=== PATIENT | female | born 1935 | race Caucasian/White ===

== ENCOUNTER → 2017-12-06 14:15 | Outpatient (CLI) | payer MEDICARE, SELFPAY ==
[2017-12-06 16:50] LABS: Absolute Lymphocyte Count 1.81 X10^3/ul (0.83-4.51); Absolute Neutrophil Count 4.3 X10^3/uL (2.0-7.7); Basophil# 0.04 X10^3/uL; Basophil% 0.5 % (0-1); Eosinophil# 0.21 X10^3/uL; Eosinophils% 2.9 % (0-5); Hematocrit 41.8 % (37-47); Hemoglobin 13.2 g/dl (12.0-15.0); Lymphocyte # 1.81 X10^3/ul (4.0); Lymphocyte % 24.8 % (19-41); Mean Corp Hgb Conc 31.6 g/gl (32-36); Mean Corpuscular Hgb 26.8 pg (27.0-32.0); Mean Platelet Vol. 9.9 fl (6.2-12.0); Monocyte# 0.96 X10^3/uL; Monocyte% 13.1 % (0-10); Neutrophil # 4.28 X10^3/uL (2.7-7.7); Neutrophil % 58.6 % (47-70); Platelet Count 317 K/mm3 (150-450); RBC Distribution Width SD 46.3 fl (35.1-43.9); Red Blood Count 4.92 M/mm3 (4.2-5.4); White Blood Count 7.3 K/mm3 (4.4-11.0)
[2017-12-06 16:52] LABS: POSITIVE COUNT NO; POSITIVE DIFFERENTIAL NO; POSITIVE MORPHOLOGY NO
[2017-12-06 17:44] LABS: Vitamin D,25 Hydroxy 30.3 ng/mL (19.95-100.01)
[2017-12-06 17:47] LABS: ALB/GLOB Ratio 0.9 RATIO (0.9-2.4); AST(SGOT) 23 U/L (15-37); Alanine Aminotransfer ALT/SGPT 33 U/L (13-56); Albumin, Serum 3.8 g/dL (3.2-5.0); Alkaline Phosphatase 101 U/L (45-117); Anion Gap 8 (5-15); BUN 21 mg/dL (7-18); BUN/Creat Ratio 21.9 RATIO (10-20); Calcium,Total 8.6 mg/dL (8.5-10.1); Chloride 99 mmol/L (98-107); Cholesterol 172 mg/dL (200); Creatinine, Serum 0.96 mg/dL (0.55-1.02); EST Glomerular Filtration Rate 59 mL/min (>60); Est Glom Filt Rate - Afr Amer 72 mL/min (>60); Globulin 4.2 g/dL (2.2-4.2); Glucose 81 mg/dL (70-110); High Density Lipoprotein 70 mg/dL; Potassium 4.1 mmol/L (3.5-5.1); Sodium Level 135 mmol/L (136-145); Thyroid Stim Hormone (TSH) 3.14 uIU/mL (0.358-3.74); Triglycerides 127 mg/dL; Very Low Density Lipoprotein 25 mg/dL (5-40)
== END ==
PROVIDERS: Family Provider Family Medicine Geriatric Medicine; PCP Family Medicine Geriatric Medicine; Visit Provider Family Medicine Geriatric Medicine
DX: E55.9 Vitamin D deficiency, unspecified (principal); E78.4 Other hyperlipidemia; I10 Essential (primary) hypertension
CPT/HCPCS: 36415; 80053; 80061; 82306; 84443; 85025

== ENCOUNTER → 2018-06-18 13:47 | Outpatient (CLI) | payer MEDICARE, SELFPAY ==
[2018-06-18 17:40] LABS: Absolute Lymphocyte Count 1.28 X10^3/ul (0.83-4.51); Absolute Neutrophil Count 4.6 X10^3/uL (2.0-7.7); Basophil# 0.03 X10^3/uL; Basophil% 0.4 % (0-1); Eosinophil# 0.11 X10^3/uL; Eosinophils% 1.6 % (0-5); Hematocrit 39.9 % (37-47); Hemoglobin 12.3 g/dl (12.0-15.0); Lymphocyte # 1.28 X10^3/ul (4.0); Lymphocyte % 18.7 % (19-41); Mean Corp Hgb Conc 30.8 g/gl (32-36); Mean Corpuscular Hgb 26.7 pg (27.0-32.0); Mean Corpuscular Volume 86.6 fL (81-99); Mean Platelet Vol. 10.5 fl (6.2-12.0); Monocyte% 11.7 % (0-10); Neutrophil # 4.61 X10^3/uL (2.7-7.7); Neutrophil % 67.5 % (47-70); Platelet Count 284 K/mm3 (150-450); RBC Distribution Width CV 15.1 % (11.6-14.6); RBC Distribution Width SD 47.9 fl (35.1-43.9); Red Blood Count 4.61 M/mm3 (4.2-5.4); White Blood Count 6.8 K/mm3 (4.4-11.0)
[2018-06-18 17:46] LABS: POSITIVE COUNT NO; POSITIVE DIFFERENTIAL NO; POSITIVE MORPHOLOGY NO
[2018-06-18 17:50] LABS: Vitamin D,25 Hydroxy 51.7 ng/mL (29.95-100.01)
[2018-06-18 18:01] LABS: ALB/GLOB Ratio 0.8 RATIO (0.9-2.4); AST(SGOT) 25 U/L (15-37); Alanine Aminotransfer ALT/SGPT 29 U/L (13-56); Albumin, Serum 3.6 g/dL (3.2-5.0); Alkaline Phosphatase 107 U/L (45-117); Anion Gap 6 (5-15); BUN 15 mg/dL (7-18); BUN/Creat Ratio 15.9 RATIO (10-20); Calcium,Total 8.8 mg/dL (8.5-10.1); Chloride 102 mmol/L (98-107); Cholesterol 165 mg/dL (200); Creatinine, Serum 0.94 mg/dL (0.55-1.02); EST Glomerular Filtration Rate 60 mL/min (>60); Est Glom Filt Rate - Afr Amer 73 mL/min (>60); Globulin 4.3 g/dL (2.2-4.2); Glucose 86 mg/dL (74-106); High Density Lipoprotein 57 mg/dL; Potassium 4.3 mmol/L (3.5-5.1); Protein, Total 7.9 g/dL (6.4-8.2); Sodium Level 137 mmol/L (136-145); Thyroid Stim Hormone (TSH) 2.39 uIU/mL (0.358-3.74); Triglycerides 139 mg/dL; Very Low Density Lipoprotein 28 mg/dL (5-40)
== END ==
PROVIDERS: Family Provider Family Medicine Geriatric Medicine; PCP Family Medicine Geriatric Medicine; Visit Provider Family Medicine Geriatric Medicine
DX: E55.9 Vitamin D deficiency, unspecified (principal); E78.4 Other hyperlipidemia; I10 Essential (primary) hypertension
CPT/HCPCS: 36415; 80053; 80061; 82306; 84443; 85025

== ENCOUNTER → 2018-11-02 09:45 | Outpatient (CLI) | payer MEDICARE, SELFPAY ==
[2018-05-14 14:02] VITALS: BMI 27.6
== END ==
PROVIDERS: Family Provider Family Medicine Geriatric Medicine; PCP Family Medicine Geriatric Medicine; Referring Provider Family Medicine Geriatric Medicine; Visit Provider Family Medicine Geriatric Medicine
DX: R50.9 Fever, unspecified (principal)
CPT/HCPCS: 87633

== ENCOUNTER → 2018-12-10 15:32 | Outpatient (CLI) | payer MEDICARE, SELFPAY ==
[2018-05-14 14:02] VITALS: BMI 27.6
[2018-12-10 16:19] LABS: ALB/GLOB Ratio 0.9 RATIO (0.9-2.4); AST(SGOT) 16 U/L (15-37); Alanine Aminotransfer ALT/SGPT 27 U/L (13-56); Albumin, Serum 3.3 g/dL (3.2-5.0); Alkaline Phosphatase 87 U/L (45-117); Anion Gap 9 (5-15); BUN 14 mg/dL (7-18); BUN/Creat Ratio 17.3 RATIO (10-20); Calcium,Total 8.7 mg/dL (8.5-10.1); Chloride 105 mmol/L (98-107); Cholesterol 148 mg/dL (200); Creatinine, Serum 0.81 mg/dL (0.55-1.02); EST Glomerular Filtration Rate 72 mL/min (>60); Est Glom Filt Rate - Afr Amer 87 mL/min (>60); Globulin 3.7 g/dL (2.2-4.2); Glucose 76 mg/dL (74-106); High Density Lipoprotein 62 mg/dL; Potassium 3.9 mmol/L (3.5-5.1); Sodium Level 141 mmol/L (136-145); Thyroid Stim Hormone (TSH) 1.65 uIU/mL (0.358-3.74); Triglycerides 84 mg/dL; Very Low Density Lipoprotein 17 mg/dL (5-40)
[2018-12-10 16:21] LABS: Vitamin D,25 Hydroxy 49.4 ng/mL (29.95-100.01)
[2018-12-10 16:33] LABS: Absolute Lymphocyte Count 0.83 X10^3/ul (0.83-4.51); Absolute Neutrophil Count 5.4 X10^3/uL (2.0-7.7); Basophil# 0.02 X10^3/uL; Basophil% 0.3 % (0-1); Eosinophil# 0.22 X10^3/uL; Hematocrit 40.6 % (37-47); Hemoglobin 12.5 g/dl (12.0-15.0); Lymphocyte # 0.83 X10^3/ul (4.0); Lymphocyte % 11.1 % (19-41); Mean Corp Hgb Conc 30.8 g/gl (32-36); Mean Corpuscular Hgb 26.5 pg (27.0-32.0); Mean Corpuscular Volume 86.2 fL (81-99); Mean Platelet Vol. 10.2 fl (6.2-12.0); Monocyte% 13.4 % (0-10); Neutrophil # 5.37 X10^3/uL (2.7-7.7); Neutrophil % 72.1 % (47-70); Platelet Count 245 K/mm3 (150-450); RBC Distribution Width CV 16.6 % (11.6-14.6); RBC Distribution Width SD 52.5 fl (35.1-43.9); Red Blood Count 4.71 M/mm3 (4.2-5.4); White Blood Count 7.5 K/mm3 (4.4-11.0)
[2018-12-10 16:34] LABS: POSITIVE COUNT NO; POSITIVE DIFFERENTIAL NO; POSITIVE MORPHOLOGY NO
== END ==
PROVIDERS: Family Provider Family Medicine Geriatric Medicine; PCP Family Medicine Geriatric Medicine; Visit Provider Family Medicine Geriatric Medicine
DX: E55.9 Vitamin D deficiency, unspecified (principal); E78.49 Other hyperlipidemia; I10 Essential (primary) hypertension
CPT/HCPCS: 36415; 80053; 80061; 82306; 84443; 85025

== ENCOUNTER → 2019-06-12 | Outpatient (CLI) | payer MEDICARE, SELFPAY ==
[2019-02-19 12:57] VITALS: BMI 24.8
[2019-06-12 17:14] LABS: Absolute Lymphocyte Count 1.06 X10^3/uL (0.83-4.51); Absolute Neutrophil Count 3.2 X10^3/uL (2.0-7.7); Basophil# 0.05 X10^3/uL; Eosinophil# 0.09 X10^3/uL; Eosinophils% 1.8 % (0-5); Hematocrit 37.7 % (37-47); Lymphocyte # 1.06 X10^3/ul (4.0); Lymphocyte % 21.3 % (19-41); Mean Corp Hgb Conc 31.8 g/dL (32-36); Mean Corpuscular Hgb 27.5 pg (27.0-32.0); Mean Corpuscular Volume 86.3 fL (81-99); Mean Platelet Vol. 10.9 fl (6.2-12.0); NRBC Flagged by Analyzer 0 % (0-5); Neutrophil # 3.17 X10^3/uL (2.7-7.7); Neutrophil % 63.7 % (47-70); Platelet Count 238 K/mm3 (150-450); RBC Distribution Width CV 15.4 % (11.6-14.6); RBC Distribution Width SD 48.1 fl (35.1-43.9); Red Blood Count 4.37 M/mm3 (4.2-5.4)
[2019-06-12 17:25] LABS: Vitamin D,25 Hydroxy 58.4 ng/mL (29.95-100.01)
[2019-06-12 17:29] LABS: AST(SGOT) 17 U/L (15-37); Alanine Aminotransfer ALT/SGPT 27 U/L (13-56); Albumin, Serum 3.4 g/dL (3.2-5.0); Alkaline Phosphatase 82 U/L (45-117); Anion Gap 9 (5-15); BUN 13 mg/dL (7-18); BUN/Creat Ratio 15.3 RATIO (10-20); Calcium,Total 8.3 mg/dL (8.5-10.1); Chloride 107 mmol/L (98-107); Cholesterol 150 mg/dL (200); Creatinine, Serum 0.85 mg/dL (0.55-1.02); EST Glomerular Filtration Rate 68 mL/min (>60); Est Glom Filt Rate - Afr Amer 82 mL/min (>60); Globulin 3.3 g/dL (2.2-4.2); Glucose 81 mg/dL (74-106); High Density Lipoprotein 68 mg/dL; Potassium 3.7 mmol/L (3.5-5.1); Protein, Total 6.7 g/dL (6.4-8.2); Sodium Level 141 mmol/L (136-145); Thyroid Stim Hormone (TSH) 1.93 uIU/mL (0.358-3.74); Triglycerides 72 mg/dL; Very Low Density Lipoprotein 14 mg/dL (5-40)
== END | disposition home or self-care (01) ==
PROVIDERS: Family Provider Family Medicine Geriatric Medicine; PCP Family Medicine Geriatric Medicine; Visit Provider Family Medicine Geriatric Medicine
DX: I10 Essential (primary) hypertension (principal); E55.9 Vitamin D deficiency, unspecified; E78.5 Hyperlipidemia, unspecified
CPT/HCPCS: 36415; 80053; 80061; 82306; 84443; 85025

== ENCOUNTER → 2019-09-10 12:40 | Outpatient (CLI) | payer MEDICARE, SELFPAY ==
[2019-08-20 13:04] VITALS: BMI 25.4
--- NOTE | 2019-09-10 12:42 | ECHOD_ITS ---
Reason For Study: Murmur Procedure This was a 2D Doppler, Color Flow transthoracic echocardiogram. Exam performed in department. Left Ventricle Normal LV size. Left ventricular systolic function is normal. The estimated ejection fraction is 65 %. Stage 2 diastolic dysfunction. No regional wall motion abnormalities noted. Right Ventricle Normal RV size. Normal systolic function. Atria Normal left atrium. Normal right atrium. Mitral Valve There is mild to moderate mitral annular calcification. Mild (1+) eccentric mitral valve insufficiency. Tricuspid Valve Normal tricuspid valve. Mild tricuspid valve insufficiency. Pulmonary artery systolic pressure is 30 mmHg. Aortic Valve Trisinus/trileaflet aortic valve. Mild focal aortic valve calcification. Pulmonic Valve Normal pulmonic valve. Mild (1+) pulmonic valve insufficiency. Great Vessels Normal aortic root. The pulmonary artery is normal size. Normal inferior vena cava. Pericardium/Pleural No pericardial effusion. MMode/2D Measurements & Calculations LVIDd: 3.7 cm IVSd: 1.5 cm LVOT diam: 2.0 cm LVIDs: 2.0 cm LVPWd: 0.93 cm LVOT area: 3.2 cm2 FS: 44.8 % Ao root diam: 3.4 cm LAV(MOD-bp): 52.2 ml LA A4 area: 20.4 cm2 LA dimension: 4.0 cm LAV(MOD-bp) Indexed: 32.2 ml/m2 LAV(MOD-sp2): 46.5 ml LAV(MOD-sp4): 59.5 ml RA A4 area: 18.0 cm2 Time Measurements MV dec time: 0.31 sec Doppler Measurements & Calculations MV E max dani: 140.2 cm/sec Lat Peak E' Dani: 4.7 cm/sec Med Peak E' Dani: 4.5 cm/sec MV A max dani: 92.2 cm/sec E/E' lat: 29.8 E/E' med: 31.0 MV E/A: 1.5 MV V2 max: 138.7 cm/sec MV P1/2t max dani: 138.7 cm/sec Ao V2 max: 188.3 cm/sec MV max P.7 mmHg MV P1/2t: 97.6 msec Ao max P.2 mmHg MV V2 mean: 67.1 cm/sec MV dec slope: 416.0 cm/sec2 Ao V2 mean: 117.7 cm/sec MV mean P.2 mmHg Ao mean P.5 mmHg MV V2 VTI: 47.7 cm MVA(P1/2t): 2.3 cm2 Ao V2 VTI: 41.3 cm MVA(VTI): 2.1 cm2 ANNIE(I,D): 2.5 cm2 ANNIE(V,D): 2.0 cm2 LV V1 max: 116.9 cm/sec MR max dani: 539.3 cm/sec SV(LVOT): 101.6 ml LV V1 max P.5 mmHg MR max P.3 mmHg LV V1 mean P.9 mmHg LV V1 mean: 76.9 cm/sec LV V1 VTI: 32.0 cm PA V2 max: 74.2 cm/sec PI end-d dani: 96.3 cm/sec TR max dani: 249.8 cm/sec TR max P.0 mmHg Interpretation Summary Normal LV size. Left ventricular systolic function is normal. The estimated ejection fraction is 65 %. Stage 2 diastolic dysfunction. There is mild to moderate mitral annular calcification. Mild focal aortic valve calcification. Ordering Physician: Heather Gunter Referring Physician: Brian Mckee Chi Performed By: Gianluca Goldberg RCS
== END ==
PROVIDERS: Family Provider Family Medicine Geriatric Medicine; PCP Family Medicine Geriatric Medicine; Referring Provider Physician Assistant Medical; Visit Provider Physician Assistant Medical
DX: R01.1 Cardiac murmur, unspecified (principal); Z98.890 Other specified postprocedural states; I08.3 Combined rheumatic disorders of mitral, aortic and tricuspid valves
CPT/HCPCS: 93306

== ENCOUNTER → 2019-10-24 16:00 | Outpatient (CLI) | payer MEDICARE, SELFPAY ==
[2019-08-20 13:04] VITALS: BMI 25.4
--- NOTE | 2019-10-24 16:06 | RAD_ITS ---
STUDY: X-RAY - LUMBAR SPINE REASON FOR EXAM: Female, 84 years old. Trauma TECHNIQUE: 3 view(s) of the lumbar spine were obtained. COMPARISON: None FINDINGS: Normal lumbar lordosis. There is no substantial scoliosis. There is a normal alignment of the vertebrae. There is diffuse demineralization with multi-level endplate spondylosis. Normal disc space heights. There is no demonstrated fracture. There are calcified plaques of the abdominal aorta. RAD/Lumbar Spine 2 or 3 Views IMPRESSION: Generalized osteopenia. Diffuse endplate spondylosis. Calcified plaques of the abdominal aorta. Electronically Signed: Jude Alvarez MD at 21:48 EST , Service support ,
--- NOTE | 2019-10-24 16:06 | RAD_ITS ---
STUDY: X-RAY - THORACIC SPINE REASON FOR EXAM: Female, 84 years old. Trauma TECHNIQUE: 3 view(s) of the thoracic spine were obtained. COMPARISON: None. FINDINGS: There is an increase in the normal thoracic kyphosis. There is no substantial scoliosis. There is demineralization of the thoracic spine with endplate spondylosis. Normal disc space heights. There are calcified plaques of the thoracic aorta. RAD/Thoracic Spine 2 Views IMPRESSION: Generalized osteopenia. Diffuse end plate spondylosis. Increased thoracic kyphosis. There is no evidence of fracture or subluxation. Disc spacing is preserved. Electronically Signed: Jude Alvarez MD at 21:46 EST , Service support ,
== END ==
PROVIDERS: Family Provider Family Medicine Geriatric Medicine; PCP Family Medicine Geriatric Medicine; Referring Provider Family Medicine Geriatric Medicine; Visit Provider Family Medicine Geriatric Medicine
DX: M54.9 Dorsalgia, unspecified (principal)
CPT/HCPCS: 72070; 72100

== ENCOUNTER → 2019-12-11 13:30 | Outpatient (CLI) | payer MEDICARE, SELFPAY ==
[2019-08-20 13:04] VITALS: BMI 25.4
--- NOTE | 2019-12-11 15:10 | RAD_ITS ---
STUDY: X-RAY CHEST REASON FOR EXAM: Female, 84 years old. CHEST PAIN; -- CABG TECHNIQUE: PA and lateral views of the chest. COMPARISON: None. FINDINGS: There is hyperinflation of the lungs consistent with chronic obstructive lung disease (COPD). Small calcific nodules are compatible with granulomata. There is no demonstrated pleural abnormality. Normal size heart. There are calcified mediastinal lymph nodes. Normal visualized pulmonary arteries. There is atherosclerotic calcification of the aortic arch with tortuosity. There is demineralization of the osseous structures. Normal visualized ribs, clavicles, and shoulders. There is no demonstrated abnormality of the visualized soft tissue structures of the upper abdomen. RAD/Chest PA and Lateral IMPRESSION: No airspace consolidation or pleural effusion. COPD. Electronically Signed: Abel Saldaña MD ([place]) at 12:13 EST , Service support ,
[2019-12-11 17:27] LABS: Absolute Lymphocyte Count 0.93 X10^3/uL (0.83-4.51); Absolute Neutrophil Count 6.3 X10^3/uL (2.0-7.7); Basophil# 0.04 X10^3/uL; Basophil% 0.5 % (0-1); Eosinophil# 0.15 X10^3/uL; Eosinophils% 1.8 % (0-5); Hematocrit 43.5 % (37-47); Hemoglobin 13.6 g/dL (12.0-15.0); Lymphocyte # 0.93 X10^3/ul (4.0); Lymphocyte % 11.2 % (19-41); Mean Corp Hgb Conc 31.3 g/dL (32-36); Mean Corpuscular Volume 89.7 fL (81-99); Monocyte# 0.85 X10^3/uL; Monocyte% 10.3 % (0-10); NRBC Flagged by Analyzer 0 % (0-5); Neutrophil # 6.28 X10^3/uL (2.7-7.7); Neutrophil % 75.8 % (47-70); Platelet Count 268 K/mm3 (150-450); RBC Distribution Width CV 15.2 % (11.6-14.6); RBC Distribution Width SD 50.2 fl (35.1-43.9); Red Blood Count 4.85 M/mm3 (4.2-5.4); White Blood Count 8.3 K/mm3 (4.4-11.0)
[2019-12-11 17:51] LABS: Vitamin D,25 Hydroxy 46.3 ng/mL (29.95-100.01)
[2019-12-11 18:05] LABS: ALB/GLOB Ratio 0.9 RATIO (0.9-2.4); AST(SGOT) 21 U/L (15-37); Alanine Aminotransfer ALT/SGPT 30 U/L (13-56); Albumin, Serum 3.5 g/dL (3.2-5.0); Alkaline Phosphatase 95 U/L (45-117); Anion Gap 5 (5-15); BUN 14 mg/dL (7-18); Calcium,Total 8.7 mg/dL (8.5-10.1); Chloride 103 mmol/L (98-107); Cholesterol 177 mg/dL (200); Creatinine, Serum 0.78 mg/dL (0.55-1.02); EST Glomerular Filtration Rate 75 mL/min (>60); Est Glom Filt Rate - Afr Amer 91 mL/min (>60); Glucose 86 mg/dL (74-106); High Density Lipoprotein 82 mg/dL; Potassium 3.9 mmol/L (3.5-5.1); Protein, Total 7.5 g/dL (6.4-8.2); Sodium Level 135 mmol/L (136-145); Thyroid Stim Hormone (TSH) 2.26 uIU/mL (0.358-3.74); Triglycerides 84 mg/dL; Very Low Density Lipoprotein 17 mg/dL (5-40)
== END ==
PROVIDERS: PCP Family Medicine Geriatric Medicine; Referring Provider Family Medicine Geriatric Medicine; Visit Provider Family Medicine Geriatric Medicine
DX: I10 Essential (primary) hypertension (principal); E78.5 Hyperlipidemia, unspecified; E55.9 Vitamin D deficiency, unspecified; R07.9 Chest pain, unspecified
CPT/HCPCS: 36415; 71046; 80053; 80061; 82306; 84443; 85025

== ENCOUNTER → 2020-06-10 13:31 | Outpatient (CLI) | payer MEDICARE, SELFPAY ==
[2019-08-20 13:04] VITALS: BMI 25.4
[2020-06-10 17:40] LABS: Absolute Lymphocyte Count 1.42 X10^3/uL (0.83-4.51); Absolute Neutrophil Count 4.9 X10^3/uL (2.0-7.7); Basophil# 0.05 X10^3/uL; Basophil% 0.7 % (0-1); Eosinophil# 0.14 X10^3/uL; Eosinophils% 1.9 % (0-5); Hematocrit 41.3 % (37-47); Hemoglobin 13.1 g/dL (12.0-15.0); Lymphocyte # 1.42 X10^3/ul (4.0); Lymphocyte % 19.5 % (19-41); Mean Corp Hgb Conc 31.7 g/dL (32-36); Mean Corpuscular Hgb 28.9 pg (27.0-32.0); Mean Platelet Vol. 10.9 fl (6.2-12.0); Monocyte# 0.81 X10^3/uL; Monocyte% 11.1 % (0-10); NRBC Flagged by Analyzer 0 % (0-5); Neutrophil # 4.86 X10^3/uL (2.7-7.7); Neutrophil % 66.5 % (47-70); Platelet Count 268 K/mm3 (150-450); RBC Distribution Width CV 14.4 % (11.6-14.6); RBC Distribution Width SD 47.8 fl (35.1-43.9); Red Blood Count 4.54 M/mm3 (4.2-5.4); White Blood Count 7.3 K/mm3 (4.4-11.0)
[2020-06-10 18:07] LABS: Vitamin D,25 Hydroxy 65.2 ng/mL
[2020-06-10 18:25] LABS: ALB/GLOB Ratio 1.1 RATIO (0.9-2.4); AST(SGOT) 24 U/L (15-37); Alanine Aminotransfer ALT/SGPT 31 U/L (13-56); Albumin, Serum 3.7 g/dL (3.2-5.0); Alkaline Phosphatase 83 U/L (45-117); Anion Gap 5 (5-15); BUN 19 mg/dL (7-18); BUN/Creat Ratio 21.1 RATIO (10-20); Calcium,Total 8.6 mg/dL (8.5-10.1); Chloride 108 mmol/L (98-107); Cholesterol 164 mg/dL (200); EST Glomerular Filtration Rate 63 mL/min (>60); Est Glom Filt Rate - Afr Amer 77 mL/min (>60); Globulin 3.3 g/dL (2.2-4.2); Glucose 86 mg/dL (74-106); High Density Lipoprotein 71 mg/dL; Potassium 3.7 mmol/L (3.5-5.1); Sodium Level 139 mmol/L (136-145); Thyroid Stim Hormone (TSH) 1.58 uIU/mL (0.358-3.74); Triglycerides 207 mg/dL; Very Low Density Lipoprotein 41 mg/dL (5-40)
== END ==
PROVIDERS: PCP Family Medicine Geriatric Medicine; Visit Provider Family Medicine Geriatric Medicine
DX: E55.9 Vitamin D deficiency, unspecified (principal); E78.5 Hyperlipidemia, unspecified; I10 Essential (primary) hypertension
CPT/HCPCS: 36415; 80053; 80061; 82306; 84443; 85025

== ENCOUNTER → 2020-07-20 13:37 | Outpatient (CLI) | payer MEDICARE, SELFPAY ==
[2019-08-20 13:04] VITALS: BMI 25.4
--- NOTE | 2020-07-20 13:41 | RAD_ITS ---
STUDY: X-RAY - ABDOMEN/PELVIS REASON FOR EXAM: Female, 85 years old. DIARRHEA X 5 DAYS, NAUSEA TECHNIQUE: AP supine and upright views of the abdomen and pelvis. COMPARISON: None. FINDINGS: Normal visualized lung bases. There is an unremarkable bowel gas pattern. There is no demonstrated free abdominal air. The visualized liver, spleen and kidneys are grossly normal in size and morphology. Normal soft tissue structures. Normal visualized osseous structures. RAD/Abd Inc Decub and/or Erect IMPRESSION: Normal x-ray examination of the abdomen and pelvis. Electronically Signed: Julius Crabtree MD at 14:04 EDT Tel , Service support ,
[2020-07-20 17:04] LABS: Absolute Lymphocyte Count 1.21 X10^3/uL (0.83-4.51); Absolute Neutrophil Count 5.2 X10^3/uL (2.0-7.7); Basophil# 0.03 X10^3/uL; Basophil% 0.4 % (0-1); Eosinophil# 0.09 X10^3/uL; Eosinophils% 1.2 % (0-5); Hematocrit 42.4 % (37-47); Hemoglobin 13.7 g/dL (12.0-15.0); Lymphocyte # 1.21 X10^3/ul (4.0); Lymphocyte % 15.9 % (19-41); Mean Corp Hgb Conc 32.3 g/dL (32-36); Mean Corpuscular Hgb 28.7 pg (27.0-32.0); Mean Corpuscular Volume 88.7 fL (81-99); Mean Platelet Vol. 10.6 fl (6.2-12.0); Monocyte# 1.03 X10^3/uL; Monocyte% 13.5 % (0-10); NRBC Flagged by Analyzer 0 % (0-5); Neutrophil # 5.24 X10^3/uL (2.7-7.7); Neutrophil % 68.6 % (47-70); Platelet Count 302 K/mm3 (150-450); RBC Distribution Width CV 13.8 % (11.6-14.6); RBC Distribution Width SD 44.5 fl (35.1-43.9); Red Blood Count 4.78 M/mm3 (4.2-5.4); White Blood Count 7.6 K/mm3 (4.4-11.0)
[2020-07-20 17:39] LABS: ALB/GLOB Ratio 0.9 RATIO (0.9-2.4); AST(SGOT) 22 U/L (15-37); Alanine Aminotransfer ALT/SGPT 30 U/L (13-56); Albumin, Serum 3.6 g/dL (3.2-5.0); Alkaline Phosphatase 90 U/L (45-117); Amylase 57 U/L (25-115); Anion Gap 7 (5-15); BUN 15 mg/dL (7-18); BUN/Creat Ratio 17.5 RATIO (10-20); Calcium,Total 9.2 mg/dL (8.5-10.1); Chloride 109 mmol/L (98-107); Creatinine, Serum 0.86 mg/dL (0.55-1.02); EST Glomerular Filtration Rate 67 mL/min (>60); Est Glom Filt Rate - Afr Amer 81 mL/min (>60); Globulin 3.9 g/dL (2.2-4.2); Glucose 94 mg/dL (74-106); Lipase 177 U/L (73-393); Potassium 3.3 mmol/L (3.5-5.1); Protein, Total 7.5 g/dL (6.4-8.2); Sodium Level 139 mmol/L (136-145)
== END ==
PROVIDERS: PCP Family Medicine Geriatric Medicine; Visit Provider Family Medicine Geriatric Medicine
DX: R19.7 Diarrhea, unspecified (principal); N39.0 Urinary tract infection, site not specified
CPT/HCPCS: 36415; 74018; 74019; 80053; 82150; 83690; 85025; 87086; 87088; 87186

== ENCOUNTER → 2020-07-21 14:32 | Outpatient (CLI) | payer MEDICARE, SELFPAY ==
[2019-08-20 13:04] VITALS: BMI 25.4
== END ==
LOC: POLAB3 14:33 → LABSPEC 14:33
PROVIDERS: PCP Family Medicine Geriatric Medicine; Visit Provider Family Medicine Geriatric Medicine
DX: R19.7 Diarrhea, unspecified (principal)
CPT/HCPCS: 82274; 83630; 87177; 87209; 87493; 87506

== ENCOUNTER → 2020-08-03 14:16 | Outpatient (CLI) | payer MEDICARE, SELFPAY ==
[2019-08-20 13:04] VITALS: BMI 25.4
[2020-08-03 17:54] LABS: Anion Gap 6 (5-15); BUN 16 mg/dL (7-18); BUN/Creat Ratio 20.9 RATIO (10-20); Calcium,Total 8.6 mg/dL (8.5-10.1); Chloride 105 mmol/L (98-107); Creatinine, Serum 0.77 mg/dL (0.55-1.02); EST Glomerular Filtration Rate 76 mL/min (>60); Est Glom Filt Rate - Afr Amer 92 mL/min (>60); Glucose 98 mg/dL (74-106); Sodium Level 139 mmol/L (136-145)
== END ==
LOC: POLAB3 14:17
PROVIDERS: PCP Family Medicine Geriatric Medicine; Visit Provider Family Medicine Geriatric Medicine
DX: E87.6 Hypokalemia (principal)
CPT/HCPCS: 36415; 80048

== ENCOUNTER → 2020-09-02 15:51 | Outpatient (CLI) | payer MEDICARE, SELFPAY ==
[2020-09-02 14:56] VITALS: BMI 26.2
--- NOTE | 2020-09-02 16:11 | RAD_ITS ---
HISTORY: CHEST PAIN. HX CORONARY ARTERY BYPASS SURGERY. ADDITIONAL HISTORY: None provided. COMPARISON: 12/11/2019 EXAMINATION/TECHNIQUE: XR Chest 2 Views Number of images including paperwork: 2 FINDINGS: LUNGS AND PLEURA: No consolidation, mass or pleural effusion. Hyperinflation. Mild fibrotic changes. CARDIAC SILHOUETTE: Stable. CABG changes. MEDIASTINUM AND NIRMAL: Aortic calcification. UPPER ABDOMEN: Unremarkable. SKELETON AND SOFT TISSUES: No acute findings. Thoracic kyphosis. Mineralization appears decreased. OTHER DEVICES AND HARDWARE: None. RAD/Chest PA and Lateral IMPRESSION: No acute cardiopulmonary abnormality. Hyperinflation compatible with COPD. at 0456 Reported and signed by: Josefina Mccormick MD Electronically Signed: Josefina Mccormick MD at 4:56 EDT Tel , Service support ,
[2020-09-02 17:18] LABS: Absolute Lymphocyte Count 1.67 X10^3/uL (0.83-4.51); Absolute Neutrophil Count 3.8 X10^3/uL (2.0-7.7); Basophil# 0.03 X10^3/uL; Basophil% 0.5 % (0-1); Eosinophil# 0.17 X10^3/uL; Eosinophils% 2.6 % (0-5); Hematocrit 42.5 % (37-47); Hemoglobin 13.6 g/dL (12.0-15.0); Lymphocyte # 1.67 X10^3/ul (4.0); Mean Corpuscular Volume 90.6 fL (81-99); Mean Platelet Vol. 10.1 fl (6.2-12.0); Monocyte# 0.71 X10^3/uL; Monocyte% 11.1 % (0-10); NRBC Flagged by Analyzer 0 % (0-5); Neutrophil # 3.83 X10^3/uL (2.7-7.7); Neutrophil % 59.6 % (47-70); Platelet Count 282 K/mm3 (150-450); RBC Distribution Width CV 13.5 % (11.6-14.6); RBC Distribution Width SD 44.7 fl (35.1-43.9); Red Blood Count 4.69 M/mm3 (4.2-5.4); White Blood Count 6.4 K/mm3 (4.4-11.0)
[2020-09-02 17:36] LABS: Anion Gap 6 (5-15); BUN 13 mg/dL (7-18); BUN/Creat Ratio 14.9 RATIO (10-20); Calcium,Total 8.6 mg/dL (8.5-10.1); Chloride 102 mmol/L (98-107); Creatinine, Serum 0.87 mg/dL (0.55-1.02); EST Glomerular Filtration Rate 66 mL/min (>60); Est Glom Filt Rate - Afr Amer 79 mL/min (>60); Glucose 91 mg/dL (74-106); Potassium 3.7 mmol/L (3.5-5.1); Sodium Level 137 mmol/L (136-145)
== END ==
PROVIDERS: PCP Family Medicine Geriatric Medicine; Referring Provider Internal Medicine Cardiovascular Disease; Visit Provider Internal Medicine Cardiovascular Disease
DX: R07.9 Chest pain, unspecified (principal); R06.00 Dyspnea, unspecified; Z95.1 Presence of aortocoronary bypass graft
CPT/HCPCS: 36415; 71046; 80048; 85025

== ENCOUNTER 2020-09-08 06:05 | Day surgery (SDC) | payer MEDICARE, SELFPAY ==
[2020-09-02 14:56] VITALS: BMI 26.2
[2020-09-07 13:35] VITALS: BMI 26.2
[2020-09-08] VITALS (16 sets, daily range): BP systolic 110–184; BP diastolic 52–92; PULSE 38–69; RESP 16–18; TEMP 36.2–37; O2SAT 96–100; BMI 25.8
--- NOTE | 2020-09-08 05:17 | HP_ITS ---
[facility] History of Present Illness Details: SHANNAN CONWAY, is a 85 F who presents to the office today for a cardiovascular follow-up. She has a history of coronary artery disease with bypass surgery in 1997. She also has a history of hypertension and hyperlipidemia. She had been doing well until recently when she started experiencing exertional chest discomfort described as a heaviness associated with shortness of breath and relieved with rest. She also has the pain bilaterally in her shoulder blades almost daily. This is not normal. She has been otherwise very active. She denies any dizziness or diaphoresis no near syncope or syncope she has been compliant with her medications. Her electrocardiogram done here today demonstrates normal sinus rhythm with a rate of 58 bpm and T wave inversions noted in lead V1 through V5. Intake Vital Signs 09/02/20 Height 5 ft 3 in 09/02/20 Weight: 148 lb 09/02/20 BMI 26.2 09/02/20 BP 145/81 H 09/02/20 Respiration 16 09/02/20 Pulse 62 09/02/20 Pulse Oximetry (%) 98 Intake Visit Reasons: 1 Y FU (we r/s from 08/18) Allergies lisinopril Allergy (Severe, Verified 08/20/19 13:04) unknown simvastatin Allergy (Severe, Verified 09/02/20 12:08) Swelling of mouth and throat Sulfa (Sulfonamide Antibiotics) Allergy (Severe, Verified 08/20/19 13:04) unknown Medications metoprolol succinate 50 mg tablet,extended release 24 hr 50 mg PO QDAY tab 11/13/17 [History Confirmed 09/02/20] nitroglycerin 0.4 mg sublingual tablet 0.4 mg SUBLINGUAL Q5-15M PRN 11/14/17 [History Confirmed 09/02/20] aspirin 81 mg chewable tablet 81 mg PO QDAY 05/14/18 [History Confirmed 09/02/20] atorvastatin 40 mg tablet 40 mg PO QDAY #90 tab 12/10/19 [Rx Confirmed 09/02/20] amlodipine 10 mg tablet 10 mg PO QDAY #60 tab 09/02/20 [Rx Confirmed 09/02/20] cholecalciferol (vitamin D3) 50 mcg (2,000 unit) capsule 1,000 unit PO QDAY cap 09/02/20 [History Confirmed 09/02/20] citalopram 10 mg tablet 20 mg PO QDAY tab 09/02/20 [History Confirmed 09/02/20] clobetasol 0.05 % topical cream 1 applic TOPICAL BID 09/02/20 [History Confirmed 09/02/20] clopidogrel 75 mg tablet 75 mg PO DAILY #30 tab 09/02/20 [Rx Confirmed 09/02/20] clopidogrel 75 mg tablet 75 mg PO DAILY #30 tab 09/02/20 [Rx Confirmed 09/02/20] omeprazole 40 mg capsule,delayed release mg PO 09/02/20 [History Confirmed 09/02/20] oxybutynin chloride 5 mg tablet 5 mg PO DAILY 09/02/20 [History Confirmed 09/02/20] potassium chloride 10 mEq tablet,extended release(part/cryst) 10 meq PO DAILY 09/02/20 [History Confirmed 09/02/20] Ejection fraction %: 65 to 70 PFSH Medical History Atherosclerotic heart disease of [place] coronary artery without angina pectoris (Chronic) Essential (primary) hypertension (Chronic) Hyperlipidemia (Chronic) Carotid artery stenosis (Chronic) Palpitations (Chronic) Blood in stool (Resolved) Diarrhea (Resolved) Atherosclerotic heart disease of [place] coronary artery with angina pectoris with documented spasm (Ruled-out) Surgical History H/O coronary artery bypass surgery (Resolved 1997) History of tonsillectomy (Chronic) History of cataract surgery (Resolved) History of hernia repair (Resolved) History of hysterectomy (Resolved) History of left heart catheterization (Resolved 1997) Family History Mother CAD (coronary artery disease) Hx of CABG Myocardial infarction Hypertension Diabetes Social History (Updated 09/02/20 @ 15:[address] Ivan Rowland MD) Smoking Status: Never smoker alcohol intake: never substance use type: does not use ROS Const Const: Negative for fatigue, weakness, headache(s), frequent falls, difficulty sleeping or excessive sweating Eyes Eyes: Negative for loss of peripheral vision, transient loss of vision, blurry vision, double vision or tunnel vision ENT ENT: Negative for headache(s), dizziness, Nosebleed/epistaxis or balance problems Cardio Chest Pain: Yes Frequency: daily Character: other (pressure) Onset: exercise Location: mid sternal Relieving: rest Palpitations: No Edema: None Muscle aches with walking: None Resp Respiratory: Negative for SOB with activity, SOB at rest, SOB orthopnea\SOB lying down, Cough or paroxysmal nocturnal dyspnea GI GI: Negative nausea, vomiting, heartburn or black,tarry stools : Negative for hematuria Musc Musc: Positive for joint pain (pain between shoulder blades); negative for muscle aches/ myalgia, muscle weakness or balance problems Skin Skin: Negative non-healing lesions, rash or unusual bruising Neuro Neuro: Negative for dizziness, lightheadedness, near syncope, syncope, orthostatic symptoms, frequent falls, headache(s), weakness, blurry vision, double vision or lack of coordination Johnnie Hematologic/Lymphatic: Negative for easy bleeding or easy bruising Endo Endo: Negative for fatigue, excessive sweating or increased thirst/drinking Psych Psych: Negative for anxiety or depression Allergy Allergy/Immunology: Negative for hives, Negative for rash Cardiology Exam Const Appearance: cooperative, healthy appearing, no acute distress, well developed and well groomed Nutritional Appearance: average body habitus and well nourished Orientation: alert, awake and oriented x3 Head Head: normal to inspection, normocephalic and atraumatic Ears: hearing grossly normal bilaterally and external ears normal Nose: external nose normal, nares normal, nasal mucous membranes and turbinates normal, septum normal, no nasal discharge Face and Sinus: face symmetric Mouth: oral mucosae normal, tongue normal, oropharynx normal and moist mucous membranes Teeth and gingiva: dentition normal Throat: posterior oropharynx normal, tonsils normal and uvula midline Eyes General: appearance normal, both eyes and all related structures Eyelids: eyelids normal Conjunctivae: conjunctivae normal Pupils: PERRL, normal by confrontation and accommodation normal EOM: EOM intact bilaterally Neck Neck: normal visual inspection, trachea midline and no JVD JVD: +5 Carotids: normal carotid upstroke and bounding pulses Chest Chest inspection: normal inspection of the chest, symmetric chest movement and normal respiratory effort Auscultation: Bilateral: Clear to Auscultation Cardio Palpation: normal PMI Rate: regular rate Rhythm: regular rhythm Heart sounds: S1 normal, S2 normal and normal, physiologic split S2; negative rub, gallop or murmur GI GI: normal to inspection, soft, no hepatosplenomegaly and bowel sounds present Neuro General: alert, awake, oriented x3, gait normal, moves all extremities and no focal sensory deficit Skin Skin: no rashes or lesions noted Extremities Pulses: Normal: Right Femoral Pulse, Left Femoral Pulse, Right Dorsalis Pedis Pulse, Left Dorsalis Pedis Pulse, Right Posterior Tibial Pulse, Left Posterior Tibial Pulse, Right Radial Pulse, Left Radial Pulse Lower Extremity Edema: None: Bilateral Musculoskel Musculoskeletal: No joint tenderness Psych Psychological: normal affect Assessment & Plan 1. Exertional chest pain R07.9 Plan She does have exertional chest discomfort. This suggests recent onset angina. Her bypass grafts as you know from 1997. The exact locations are not known at this time. With the typical characteristics of the above I would recommend that we pursue a cardiac catheterization. The risk benefits alternatives have been explained to her she understands and agrees to proceed. Orders Orders: 12 Lead EKG performed by [facility] Today Left Heart Cath w/Grafts 1 Week Basic Metabolic Profile (BMP) Today Chest PA and Lateral Today 2. H/O coronary artery bypass surgery Z95.1 Plan She is status post coronary artery bypass surgery. She appears to have developed angina and I would recommend that we evaluate the above further. Orders Orders: 12 Lead EKG performed by [facility] Today Left Heart Cath w/Grafts 1 Week Chest PA and Lateral Today 3. Essential (primary) hypertension I10 Plan She does have a history of hypertension which does not appear to be very well controlled I would recommend that we increase amlodipine to 10 mg a day in addition to her current medications. Her last echocardiogram had demonstrated preserved ejection fraction of 65%, aortic sclerosis, mitral regurgitation 1+. Orders Orders: 12 Lead EKG performed by [facility] Today Left Heart Cath w/Grafts 1 Week 4. Pure hypercholesterolemia E78.00 Plan She does have a history of hyperlipidemia. She will continue with her current medical therapy her most recent lipid profile demonstrated a total cholesterol 164, LDL of 52 and HDL of 71. She will remain on the same medications. Thank you for allowing me to participate in the care of your patient. Please don't hesitate to call if any issues arise. Plan Detail Other Orders Orders: 12 Lead EKG performed by [facility] Today E78.5, I25.10, R06.00 CBC W/Diff, Automated Today R06.00 Other Medications New: clopidogrel (Plavix) 75 mg PO DAILY 30 tabs 2RF clopidogrel (Plavix) 75 mg PO DAILY 30 tabs 0RF Changed: From: amlodipine 5 mg PO QDAY To: amlodipine 10 mg PO QDAY 60 tabs 3RF Follow Up 3 Months (mmm) Coding Level of Care Code Off vis,est,level 4 Diagnoses Exertional chest pain R07.9 H/O coronary artery bypass surgery Z95.1 Essential (primary) hypertension I10 Pure hypercholesterolemia E78.00 ??Hyperlipidemia type: pure hypercholesterolemia Coding Level of Care Code Off vis,est,level 4 Diagnoses Exertional chest pain R07.9 H/O coronary artery bypass surgery Z95.1 Essential (primary) hypertension I10 Pure hypercholesterolemia E78.00 ??Hyperlipidemia type: pure hypercholesterolemia Supplemental Info Supplemental Information Labs LDL Cholesterol 52 mg/dL (0-130) 06/10/20 HDL Cholesterol 71 mg/dL (40-) 06/10/20 Triglycerides 207 mg/dL (-199) H 06/10/20 VLDL Cholesterol 41 mg/dL (5-40) H 06/10/20 Diagnostics Echocardiogram 09/10/19 Chest X-Ray 12/11/19
--- NOTE | 2020-09-08 09:05 | CL.D_ITS ---
Patient Name: SHANNAN CONWAY Study Date: 09/08/2020 Performing: Ivan Rowland MD Ht: 62.99 inches 160 cm : 1935 Wt: 147.71 lbs 67 kg Age: 85 Gender: female BSA: 1.7 PROCEDURE(S) PERFORMED NT18-RCA/COR/CABG CLINICAL PROFILE AND INDICATIONS Indications: Suspected CAD Heart Failure: None Stress/Imaging Stress/Image Study Performed: No CAD Presentations: Unstable angina. CONCLUSIONS Significant coronary artery disease with the saphenous vein graft to the right coronary artery having areas in the proximal segment of approximately 60% in the midsegment of 90% stenosis and an old kyrie t. The distal vessel appears to be free of significant disease. RECOMMENDATIONS Referred for immediate PCI DESCRIPTION OF PROCEDURE The patient arrived to the procedure lab. The risks and benefits of the procedure as well as a full d escription of our services here and current unavailability of surgical backup were fully explained to the patient and/or their significant other prior to the catheterization. The Timeout was completed, verifying the correct patient and procedure. The patient's procedural site was prepped and draped in the usual fashion. Local anesthetic was given subcutaneously to right groin region with Lidocaine 2%. Using a modified Seldinger technique, arterial access was obtained via the right femoral artery, a 5 Fr sheath was inserted. Left Coronary Artery selective angiography was performed in multiple views u sing a 5 Fr. JL4 catheter. Right Coronary Artery selective angiography was then performed in multiple views using a 5 Fr. 3DRC (Antonio) catheter. Saphenous Vein graft to the OM 3 selective angiography was performed in multiple views using a 5 Fr. 3DRC (Antonio) catheter. Saphenous Vein graft to the RCA selective angiography was performed in multiple views using a 5 Fr. 3DRC (Antonio) catheter. Left internal mammary artery graft to the LAD selective angiography was performed in multip le views using a 5 Fr. IM catheter. Saphenous Vein graft to the RCA selective angiography was perform ed in multiple views using a 5 Fr. AR MOD catheter. Saphenous Vein graft to the OM 3 selective angiog paresh was performed in multiple views using a 5 Fr. AR MOD catheter. CORONARY ANGIOGRAPHY DOMINANCE: Right Dominant LEFT HEART ASSESSMENT Left Ventricular Ejection Fraction: by Echo 55 % Normal LV wall motion LEFT MAIN: Mild calcification, Mild luminal irregularities LEFT ANTERIOR DESCENDING ARTERY: PROX LAD: is occluded CIRCUMFLEX ARTERY: OM 1: Proximal - Mild luminal irregularities less than 30% OM 2: Proximal - Moderate luminal irregularities up to 50% OM 3: Mid - Mild luminal irregularities RIGHT CORONARY ARTERY: PROX RCA: is occluded GRAFTS: CHEEMA graft to the Mid LAD is patent Saphenous Vein graft to the 3rd OM is patent Saphenous Vein graft to the RPDA has a proximal lesion of 60 % Saphenous Vein graft to the RPDA has a mid lesion of 90 % COLLATERAL FLOW: Collateral flow from LAD to RPL 1 COMPLICATIONS PROCEDURE MEDICATIONS Versed 1 mg IV Versed 1 mg IV Oxygen: 2 L/min via nasal cannula SUMMARY OF HEMODYNAMIC DATA Time AIR REST ECG 07:03:18 AO 142/62 (95) SA 08:12:39 Signed By Ivan Rowland MD On 09/08/2020 09:04:49 Ivan Rowland MD
--- NOTE | 2020-09-08 10:38 | CL.I_ITS ---
Patient Name: SHANNAN CONWAY Study Date: 09/08/2020 Performing: Ben Powell MD Ht: 63 inches 160 cm : 1935 Wt: 147.9 lbs 67 kg Age: 85 Gender: female BSA: 1.7 PROCEDURE(S) PERFORMED [id number] AND/OR PTCA, SINGLE GRAFT CLINICAL PROFILE AND CO-MORBIDITIES Indications: Suspected CAD Heart Failure: None Stress/Imaging Stress/Image Study Performed: No CAD Presentations: Unstable angina. CONCLUSIONS Successful PCI with TAI to the proximal and mid SVG to RPDA RECOMMENDATIONS ASA Indefinitley Plavix for at least 12 months Follow up with Dr. Rowland DESCRIPTION OF PROCEDURE The patient arrived to the procedure lab. The risks and benefits of the procedure as well as a full d escription of our services here and current unavailability of surgical backup were fully explained to the patient and/or their significant other prior to the catheterization. The Timeout was completed, verifying the correct patient and procedure. The patient's procedural site was prepped and draped in the usual fashion. Local anesthetic was given subcutaneously to right groin region with Lidocaine 2% Using a modified Seldinger technique,arterial access was obtained via the right femoral artery, a 5Fr sheath was inserted. Left Coronary Artery selective angiography was performed in multiple views usin g a 5 Fr. JL4 catheter. Right Coronary Artery selective angiography was then performed in multiple vi ews using a 5 Fr. 3DRC (Antonio) catheter. Saphenous Vein graft to the OM 3 selective angiography wa s performed in multiple views using a 5 Fr. 3DRC (Antonio) catheter. Saphenous Vein graft to the RCA selective angiography was performed in multiple views using a 5 Fr. 3DRC (Antonio) cathet er. Left internal mammary artery graft to the LAD selective angiography was performed in multiple vie ws using a 5 Fr. IM catheter. Saphenous Vein graft to the RCA selective angiography was performed in multiple views using a 5 Fr. AR MOD catheter. Saphenous Vein graft to the OM 3 selective angiography was performed in multiple views using a 5 Fr. AR MOD catheter.The images were reviewed and options di scussed. A decision was then made to proceed with an Intervention, IVUS or other adjunct procedure. Arterial sheath was exchanged for a 6 Fr Sheath. MP 1 Guide catheter was inserted and engaged int o the SVG to the RCA. BMW Guide wire was advanced to the RCA. Emerge 3.00x12 Balloon catheter was ins erted. PTCA balloon inflated at 10 atms for 37 secs. PTCA balloon inflated at 12 atms for 16 secs. PT CA balloon inflated at 12 atms for 40 secs. PTCA balloon inflated at 10 atms for 12 secs. Angiogram p erformed post balloon dilatation. Synergy 3.50x16 Drug Eluting stent was inserted. PTCA balloon infla jess at 11 atms for 23 secs. Angiogram performed post stent deployment. Synergy 3.50x38 Drug Eluting s tent was inserted. Angiogram performed post stent deployment. NC Emerge 3.50x12 Balloon catheter was inserted. Angiogram performed post balloon dilatation. NC Emerge 3.50x12 Balloon catheter was inserte d. PTCA balloon inflated at 14 atms for 11 secs. PTCA balloon inflated at 16 atms for 7 secs. Angiogr am performed post balloon dilatation. Contrast was injected through the sheath and the Right Iliac and Femoral artery were assessed for possible closure device. The arterial sheath was pu lled and a Perclose closure device was deployed for hemostasis INTERVENTION INFORMATION LESION SITE: Vein > to Rt PDA Segment Number: 4-Right posterior descending artery segment - rPDA , L esion Location: Body -MID Lesion Complexity: High/C, chronic total occlusion: No, lesion at bifurcation: No, thrombus present: No, lesion length: 12 mm, culprit lesion: No, Previously treated lesion: No Pre Stenosis: 95 % Pre intervention BOY flow: 3 PROCEDURE: Drug Eluting Stent with pre dilatation. Post Stenosis: 0 % Post intervention BOY flow: 3 Lesion Devices: Babcock .014 BMW [place] Straight 190cm Medtronic 6 Fr MP1 100cm Guide Catheter Ghanshyam Sci EMERGE MR 3.00x12 BALLOON Ghanshyam Sci Synergy MR TAI 3.50x16 LESION SITE: Vein > to Rt PDA Segment Number: 4-Right posterior descending artery segment - rPDA , L esion Location: Body -Prox Lesion Complexity: High/C, chronic total occlusion: No, lesion at bifurcation: No, thrombus present: No, lesion length: 37 mm, culprit lesion: No, In-stent restenosis: No Pre Stenosis: 80 % Pre intervention BOY flow: 3 PROCEDURE: Drug Eluting Stent with pre and post dilatation Post Stenosis: 0 % Post intervention BOY flow: 3 Lesion Devices: Babcock .014 BMW [place] Straight 190cm Medtronic 6 Fr MP1 100cm Guide Catheter Ghanshyam Sci EMERGE MR 3.00x12 BALLOON Ghanshyam Sci Synergy MR TAI 3.50x38 Ghanshyam Sci NC EMERGE MR 3.50x12 BALLOON COMPLICATIONS No Complications PROCEDURE MEDICATIONS Versed 1 mg IV Versed 1 mg IV Oxygen: 2 L/min via nasal cannula Heparin 6000 unit(s) IV 09/08/2020 09:25:12 SUMMARY OF HEMODYNAMIC DATA Time AIR REST ECG 07:03:18 AO 142/62 (95) SA 08:12:39 AO 175/71 (114) 09:29:55 Signed By Ben Powell MD On 09/08/2020 10:37:25 Ben Powell MD
--- NOTE | 2020-09-08 13:01 | CRPHASE1 ---
Patient Communication Former Patient:: Phase I PHII Cardiac Rehab Discussed with Patient:: Yes Guide to Cardiac Rehab Given to Patient:: Yes Cardiac Rehab Facility Choice List Given to Patient:: Yes Choice Program [facility] CR PHII:: Communication Given to CR Choice Program Other:: Communication Given to CR Learning And Development Consultant:: Ivan Rowland Phase II Cardiac Rehab:: Yes Sessions:: 36 sessions - 3 days/wk, 12 weeks Risk Factors/Lifestyle Smoking Status: Never smoker Second-Hand Smoke:: No Hx Hypertension: Yes Hx Diabetes Mellitus Type 1: No Hx Diabetes Mellitus Type 2: No Hx Metabolic Disorders: No Hx Dyslipidemia: Yes Hx Obesity: No Post-Menopausal: Yes ETOH: No Caffeine: No Substance Abuse: No Risk Factor for Sedentary Lifestyle: Moderate Risk Family History: Family History (Last Reviewed 09/02/20 @ 15:[address] Ivan Rowland MD) Mother CAD (coronary artery disease) Hx of CABG Myocardial infarction Hypertension Diabetes Past Cardiac Illness: Coronary Artery Disease, Myocardial Infarction, Coronary Artery Bypass Graft Phase I Education Given On:: Catharpin, Nutrition, Antiplatelet medication Issues Affecting Care:: None Knowledge of Condition:: Yes Learning Preferences: Verbal Cardiac Rehabilitation Info Cardiac Rehabilitation Program Information: Cardiac Rehabilitation is important for patients like you who are recovering from a heart problem. Cardiac rehabilitation programs are recognized as integral to the continued care of the patient with coronary heart disease. The cardiac rehabilitation program is designed to optimize a patient's physical, psychological, and social functioning. Health reservoir caretaker work in cardiac rehabilitation programs and assist you with getting the treatments you need to get stronger and healthier - like exercise, healthy eating habits, and medications. Cardiac rehabilitation has been show to help people with heart problems live longer and have better life enjoyment than people who do not go to cardiac rehabilitation. Please contact the Cardiac Rehabilitation Program at [facility] at in two weeks if you have not heard from them.
--- NOTE | 2020-09-08 13:03 | CRPH1.INSTRU ---
General Education CAD and cardiac anatomy and function:: Patient communicates acknowledgment Explanation of diagnoses and procedures:: Patient communicates acknowledgment Sign/Symptoms of RI:: Patient communicates acknowledgment Antiplatelet therapy: Patient communicates acknowledgment Proper use of NTG-SL: Patient communicates acknowledgment Emergency procedures and activation of EMS: Patient communicates acknowledgment Compliance of all prescribed medications: Patient communicates acknowledgment Dyslipidemia Patient Dyslipidemia Risk Factors Are:: Total Cholesterol, Triglycerides, HDL, LDL Recommendations Include:: Lipid profile provided, Reviewed NCEP/ATP guidelines, Therapeutic Lifestyle Change dietary guidelines Dyslipidemia Response Code:: Patient communicates acknowledgment Hypertension Recommendations Include:: Maintain BP <130/85, DASH dietary guidelines, Decrease/maintain normal body weight, Moderation of ETOH Hypertension:: Patient communicates acknowledgment Heart Disease Patient Heart Disease Risk Factors Are:: Previous cardiac event Recommendations Include:: Educated family members of their risk Heart Disease Response Code:: Patient communicates acknowledgment Sedentary Patient Sedentary Risk Factors Are:: Lack of regular exercise Recommendations Include:: Aerobic exercise 5-7 times/week for 20-30 minutes continuously, Benefits of regular exercise, Discussed home walking program, Monitored Outpatient Cardiac Rehab Sedentary Response Code:: Patient communicates acknowledgment
--- NOTE | 2020-09-08 13:21 | NURSING ---
Pt bedrest completed, ambulated patient in halls. Site soft, non-tender and no bruising noted. Pt tolerated well.
--- NOTE | 2020-09-08 14:41 | EKG12_ITS ---
Test Reason : POST PCI Blood Pressure : / mmHG Vent. Rate : 055 BPM Atrial Rate : 055 BPM P-R Int : 214 ms QRS Dur : 098 ms QT Int : 470 ms P-R-T Axes : 087 066 106 degrees QTc Int : 449 ms Sinus bradycardia with 1st degree A-V block ST & T wave abnormality, consider anterior ischemia Abnormal ECG Confirmed by PAULETTE ZULETA, NEGAR ([id number]), index editor AISSATOU ALVA ([id number]) on 09/10/2020 11:04:23 AM Referred By: Ivan Rowland Confirmed By:NEGAR CALDWELL MD
--- NOTE | 2020-09-08 15:14 | EKG12_ITS ---
Test Reason : Blood Pressure : / mmHG Vent. Rate : 059 BPM Atrial Rate : 059 BPM P-R Int : 214 ms QRS Dur : 094 ms QT Int : 446 ms P-R-T Axes : 072 060 098 degrees QTc Int : 441 ms Sinus bradycardia with 1st degree A-V block ST & T wave abnormality, consider anterior ischemia Abnormal ECG When compared with ECG of 08-SEP-2020 11:49, MANUAL COMPARISON REQUIRED, DATA IS UNCONFIRMED Confirmed by WILFRID ZULETA, ZOHRA ([id number]), research editor NERY CORONADO ([id number]) on 09/10/2020 2:36:09 PM Referred By: Ivan Rowland Confirmed By:ROSALIA YUEN MD
[2020-09-08] MEDS: Atorvastatin Calcium 40 MG Tablet PO (21:22)
[2020-09-08] MEDS: Clobetasol Propionate 0.05% Cream 1 APPLIC TOPICAL (21:22)
[2020-09-09 03:00] VITALS: PULSE 56
[2020-09-09 03:19] VITALS: BP 149/77; PULSE 63; RESP 18; TEMP 36.4; O2SAT 93
[2020-09-09 05:36] LABS: Hematocrit 40.9 % (37-47); Hemoglobin 12.9 g/dL (12.0-15.0); Mean Corp Hgb Conc 31.5 g/dL (32-36); Mean Corpuscular Hgb 28.5 pg (27.0-32.0); Mean Corpuscular Volume 90.5 fL (81-99); Mean Platelet Vol. 9.9 fl (6.2-12.0); Platelet Count 228 K/mm3 (150-450); RBC Distribution Width CV 13.7 % (11.6-14.6); RBC Distribution Width SD 45.4 fl (35.1-43.9); Red Blood Count 4.52 M/mm3 (4.2-5.4); White Blood Count 5.8 K/mm3 (4.4-11.0)
--- NOTE | 2020-09-09 05:40 | EKG12_ITS ---
Test Reason : AM Blood Pressure : / mmHG Vent. Rate : 061 BPM Atrial Rate : 061 BPM P-R Int : 216 ms QRS Dur : 098 ms QT Int : 426 ms P-R-T Axes : 092 052 090 degrees QTc Int : 428 ms Sinus rhythm with 1st degree A-V block ST & T wave abnormality, consider anterior ischemia Abnormal ECG When compared with ECG of 08-SEP-2020 15:14, MANUAL COMPARISON REQUIRED, DATA IS UNCONFIRMED Confirmed by WILFRID ZULETA, ZOHRA ([id number]), editor school photograph NERY CORONADO ([id number]) on 09/10/2020 2:35:58 PM Referred By: Ivan Rowland Confirmed By:ROSALIA YUEN MD
[2020-09-09 05:54] LABS: AST(SGOT) 19 U/L (15-37); Alanine Aminotransfer ALT/SGPT 21 U/L (13-56); Albumin, Serum 3.2 g/dL (3.2-5.0); Alkaline Phosphatase 77 U/L (45-117); Anion Gap 7 (5-15); BUN 15 mg/dL (7-18); BUN/Creat Ratio 19.9 RATIO (10-20); Calcium,Total 8.6 mg/dL (8.5-10.1); Chloride 107 mmol/L (98-107); Creatinine, Serum 0.76 mg/dL (0.55-1.02); EST Glomerular Filtration Rate 77 mL/min (>60); Est Glom Filt Rate - Afr Amer 94 mL/min (>60); Estimated Creatinine Clearance 34.02 ml/min; Globulin 3.2 g/dL (2.2-4.2); Glucose 93 mg/dL (74-106); Potassium 3.5 mmol/L (3.5-5.1); Protein, Total 6.4 g/dL (6.4-8.2); Sodium Level 138 mmol/L (136-145)
[2020-09-09 07:00] VITALS: PULSE 58
--- NOTE | 2020-09-09 08:10 | PN.CARD_ITS ---
Subjectve: Patient seen and evaluated. Objective: Vital Signs Temp Pulse Resp BP Pulse Ox 97.6 F L 63 18 149/77 H 93 09/09/20 03:19 09/09/20 03:19 09/09/20 03:19 09/09/20 03:19 09/09/20 03:19 Oxygen Delivery Method Room Air Weight: 145 lb 11.609 oz Body Mass Index (BMI) 25.8 Intake and Output for Last 24 Hours 09/07/20 09/08/20 09/09/20 23:59 23:59 23:59 Intake Total 480 / 880 460 / 460 Output Total 320 / 320 Balance 160 / 560 460 / 460 General: Awake, Alert, Oriented x 3 HEENT: PERRL, EOMI, Sclera Non Icteric Neck: Supple, Good ROM, No Lymph Node Enlargement Lungs: Clear to auscultation Cardiovascular: Regular Rhythm, Normal S1, Normal S2, No Murmurs, No Rubs, No Gallops 09/09/20 05:02: WBC 5.8, RBC 4.52, Hgb 12.9, Hct 40.9, MCV 90.5, MCH 28.5, MCHC 31.5 L, Plt Count 228, MPV 9.9 09/09/20 05:02: Sodium 138, Potassium 3.5, Chloride 107, Carbon Dioxide 24.0, Anion Gap 7, BUN 15, Creatinine 0.76, Est GFR (MDRD) Af Amer 94, Est GFR (MDRD) Non-Af 77, BUN/Creatinine Ratio 19.9, Glucose 93, Calcium 8.6, Total Bilirubin 0.70 Rhythm: EKG: ECHO: Stress Test: Cardiac Cath: PCI: CT Surgery: Holter monitor: EPS: PPM: CXR: Chest CT Scan: Medical Necessity - Tobacco Use Smoking Status: Never smoker Assessment/Plan 1 status post angioplasty and stenting of the saphenous vein graft to the right coronary artery. Patient did well overnight. T wave inversions noted anteriorl y persist. No chest pain noted. Patient will be discharged on current medical therapy for outpatient follow-up.
--- NOTE | 2020-09-09 08:11 | DCINST_ITS ---
Discharge Diet: No Restrictions - You may continue your normal diet. Lifting Restrictions: 10 pounds and also avoid any pushing or pulling for 3 days after your test. Additional Activity Instructions:: You must have someone drive you home. Do not drive until instructed by your doctor. You must have someone stay with you all night after your test. Rest in bed or on the couch until the next morning. Limit the number of times you go up and down stairs the day of your test. Apply pressure to the puncture site if you sneeze or cough. Call your doctor if your incision/area has: Increased Pain/ Swelling, Increased Redness, Foul Smelling Discharge, Swelling at the incision site Call your doctor if you observe: Fever of 101 or Higher Additional Dressing/Incision Instructions:: Keep the dressing (bandage) on until the next morning. You may then shower, but do not take a tub bath for 5 days after your test. It is normal to have some tenderness and discomfort at the puncture site. Sometimes bruising also occurs. However, if pain, numbness, or coldness occurs below the puncture site (in your leg, toes, arms or fingers) call your doctor at once. You may have a small, marble sized knot at the puncture site. This is normal. Do not rub it. It will go away in 4-6 weeks. Bleeding can occur from the area where the puncture was done. Blood may spurt or drip from the site. If blood spurts, apply pressure right away to stop bleeding and call 911. Although rare, bleeding into the tissue (hematoma) can also occur. If this happens, a large, firm area goose egg under the skin will appear. If any of these occur, lie down as flat as you can and have someone apply firm pressure to the cath site with a gauze pad or a clean washcloth for 10-15 minutes. Call 911 or go to the Emergency Department. Allergies/Adverse Reactions: Allergies lisinopril Allergy (Severe, Verified 08/20/19 13:04) unknown simvastatin Allergy (Severe, Verified 09/02/20 12:08) Swelling of mouth and throat Sulfa (Sulfonamide Antibiotics) Allergy (Severe, Verified 08/20/19 13:04) unknown Medications to take at Discharge metoprolol succinate 50 mg tablet,extended release 24 hr 50 mg PO QDAY tab 06/23 nitroglycerin 0.4 mg sublingual tablet 0.4 mg SUBLINGUAL Q5-15M PRN 11/14/17 aspirin 81 mg chewable tablet 81 mg PO QDAY 05/14/18 atorvastatin 40 mg tablet 40 mg PO QDAY #90 tab 12/10/19 amlodipine 10 mg tablet 10 mg PO QDAY #60 tab 09/02/20 cholecalciferol (vitamin D3) 50 mcg (2,000 unit) capsule 1,000 unit PO QDAY cap 09/02/20 citalopram 10 mg tablet 20 mg PO QDAY tab 09/02/20 clobetasol 0.05 % topical cream 1 applic TOPICAL BID 09/02/20 clopidogrel 75 mg tablet 75 mg PO DAILY #30 tab 09/02/20 omeprazole 40 mg capsule,delayed release 40 mg PO DAILY 09/02/20 oxybutynin chloride 5 mg tablet 5 mg PO DAILY 09/02/20 potassium chloride 10 mEq tablet,extended release(part/cryst) 10 meq PO DAILY 09/02/20 Primary Care Physician: Brian Mckee Chi, MD [Primary Care Provider] - Test Results: Test results from this visit will be discussed in further detail at your follow- up appointment, if applicable. When: my office will call for appt Cardiac Rehabilitation Info Cardiac Rehabilitation Program Information: Cardiac Rehabilitation is important for patients like you who are recovering from a heart problem. Cardiac rehabilitation programs are recognized as integral to the continued care of the patient with coronary heart disease. The cardiac rehabilitation program is designed to optimize a patient's physical, psychological, and social functioning. Health emergency care tech work in cardiac rehabilitation programs and assist you with getting the treatments you need to get stronger and healthier - like exercise, healthy eating habits, and medications. Cardiac rehabilitation has been show to help people with heart problems live longer and have better life enjoyment than people who do not go to cardiac rehabilitation. Please contact the Cardiac Rehabilitation Program at [facility] at in two weeks if you have not heard from them.
[2020-09-09 08:16] VITALS: O2SAT 96
[2020-09-09 09:10] VITALS: BP 137/67; PULSE 64; RESP 16; TEMP 37.3; O2SAT 98
[2020-09-09 09:18] VITALS: PULSE 64
[2020-09-09] MEDS: Metoprolol(XL)Succ 50 MG Tablet PO (09:18)
[2020-09-09] MEDS: Clopidogrel Bisulfate 75 MG Tablet PO (09:18)
[2020-09-09] MEDS: Pantoprazole Sodium 40 MG Tablet PO (09:19)
[2020-09-09] MEDS: Citalopram 20 MG Tablet PO (09:19)
[2020-09-09] MEDS: amLODIPine 10 MG Tablet PO (09:19)
[2020-09-09] MEDS: Tolterodine Tartrate 2 MG CAP.SA PO (09:20)
[2020-09-09] MEDS: Aspirin 81 MG TAB.CHEW PO (09:20)
--- NOTE | 2020-09-09 10:00 | EKG12_ITS ---
Test Reason : Blood Pressure : / mmHG Vent. Rate : 070 BPM Atrial Rate : 070 BPM P-R Int : 200 ms QRS Dur : 092 ms QT Int : 416 ms P-R-T Axes : 092 054 069 degrees QTc Int : 449 ms Normal sinus rhythm ST & T wave abnormality, consider anterolateral ischemia Abnormal ECG When compared with ECG of 09-SEP-2020 05:40, MANUAL COMPARISON REQUIRED, DATA IS UNCONFIRMED Confirmed by WILFRID ZULETA, ZOHRA ([id number]), make up editor AISSATOU ALVA ([id number]) on 09/10/2020 1:02:25 PM Referred By: Ivan Rowland Confirmed By:ROSALIA YUEN MD
== END 2020-09-09 08:12 | disposition home or self-care (01) ==
LOC: CLSP 06:11 → PCU 11:32
PROVIDERS: Specialist; PCP Family Medicine Geriatric Medicine; Referring Provider Internal Medicine Cardiovascular Disease; Visit Provider Internal Medicine Cardiovascular Disease
DX: I25.110 Atherosclerotic heart disease of native coronary artery with unstable angina pectoris (principal); E78.5 Hyperlipidemia, unspecified; I10 Essential (primary) hypertension; Z95.1 Presence of aortocoronary bypass graft; Z79.899 Other long term (current) drug therapy; Z79.82 Long term (current) use of aspirin; Z79.02 Long term (current) use of antithrombotics/antiplatelets
CPT/HCPCS: 80053; 85027; 92937; 93005; 93455; 99152; 99153; J7040; Q9967; C1725; C1760; C1769; C1874; C1887; C9604

== ENCOUNTER → 2020-11-03 12:50 | Outpatient (CLI) | payer MEDICARE, SELFPAY ==
[2020-10-27 11:24] VITALS: BMI 27.2
--- NOTE | 2020-11-03 12:52 | ECHOD_ITS ---
Reason For Study: MURMUR Procedure This was a 2D Doppler, Color Flow transthoracic echocardiogram. Exam performed in department. Left Ventricle Normal LV size. Left ventricular systolic function is normal. The estimated ejection fraction is 60 %. No regional wall motion abnormalities noted. Right Ventricle Normal RV size. Normal systolic function. Atria The left atrium is mildly enlarged. Normal right atrium. Mitral Valve Mild diffuse mitral valve calcification. Trivial anteriorly directed mitral valve insufficiency. Tricuspid Valve Normal tricuspid valve. Mild (1+) tricuspid valve insufficiency. Pulmonary artery systolic pressure is 30 mmHg. Aortic Valve Trisinus/trileaflet aortic valve. Mild focal aortic valve calcification. Peak aortic valve gradient 19 mmHg. Mean aortic valve gradient 9 mmHg. Mild aortic stenosis. Mild (1+) eccentric aortic valve insufficiency. Pulmonic Valve Normal pulmonic valve. Great Vessels Mildly dilated aortic root. The pulmonary artery is normal size. Normal inferior vena cava. Pericardium/Pleural No pericardial effusion. MMode/2D Measurements & Calculations LVIDd: 4.6 cm IVSd: 1.1 cm LVOT diam: 2.0 cm LVIDs: 3.0 cm LVPWd: 0.86 cm LVOT area: 3.1 cm2 RVDd: 3.8 cm FS: 34.8 % Ao root diam: 3.9 cm LAV(MOD-bp): 83.4 ml LVAd ap4: 24.3 cm2 LAV(MOD-bp) Indexed: 50.0 ml/m2 EDV(MOD-sp4): 66.7 ml LAV(MOD-sp2): 90.6 ml EDV(sp4-el): 70.9 ml LAV(MOD-sp4): 71.2 ml LVAs ap4: 12.2 cm2 ESV(MOD-sp4): 22.5 ml ESV(sp4-el): 22.1 ml EF(MOD-sp4): 66.3 % EF(sp4-el): 68.8 % SV(MOD-sp4): 44.3 ml SV(sp4-el): 48.8 ml LA A4 area: 22.8 cm2 LA dimension(2D): 4.8 cm RA A4 area: 16.2 cm2 Time Measurements MV dec time: 0.26 sec Doppler Measurements & Calculations MV E max dani: 148.4 cm/sec Lat Peak E' Dani: 6.9 cm/sec Med Peak E' Dani: 5.3 cm/sec MV A max dani: 102.0 cm/sec E/E' lat: 21.5 E/E' med: 28.0 MV E/A: 1.5 Ao V2 max: 218.9 cm/sec LV V1 max: 128.4 cm/sec SV(LVOT): 94.1 ml Ao max P.4 mmHg LV V1 max P.6 mmHg Ao V2 mean: 146.3 cm/sec LV V1 mean P.4 mmHg Ao mean P.6 mmHg LV V1 mean: 86.5 cm/sec Ao V2 VTI: 49.8 cm LV V1 VTI: 30.5 cm ANNIE(I,D): 1.9 cm2 ANNIE(V,D): 1.8 cm2 PA V2 max: 81.7 cm/sec TR max dani: 260.3 cm/sec TR max P.1 mmHg Interpretation Summary Mild aortic stenosis. Mild focal aortic valve calcification. Normal LV size. Left ventricular systolic function is normal. The estimated ejection fraction is 60 %. The left atrium is mildly enlarged. Mild (1+) tricuspid valve insufficiency. Mildly dilated aortic root. Ordering Physician: Heather Gunter Referring Physician: SHABBIR KRAMER Performed By: Lynette Berrios, DENNISE, RVT
== END ==
PROVIDERS: PCP Family Medicine Geriatric Medicine; Referring Provider Physician Assistant Medical; Visit Provider Physician Assistant Medical
DX: R06.00 Dyspnea, unspecified (principal)
CPT/HCPCS: 93306

== ENCOUNTER → 2020-12-14 13:18 | Outpatient (CLI) | payer MEDICARE, SELFPAY ==
[2020-10-27 11:24] VITALS: BMI 27.2
[2020-12-14 16:49] LABS: Absolute Lymphocyte Count 1.21 X10^3/uL (0.83-4.51); Absolute Neutrophil Count 4.4 X10^3/uL (2.0-7.7); Basophil# 0.06 X10^3/uL; Basophil% 0.9 % (0-1); Eosinophil# 0.18 X10^3/uL; Eosinophils% 2.7 % (0-5); Hematocrit 42.7 % (37-47); Hemoglobin 13.2 g/dL (12.0-15.0); Lymphocyte # 1.21 X10^3/ul (4.0); Lymphocyte % 18.3 % (19-41); Mean Corp Hgb Conc 30.9 g/dL (32-36); Mean Corpuscular Hgb 28.1 pg (27.0-32.0); Mean Platelet Vol. 10.3 fl (6.2-12.0); Monocyte# 0.71 X10^3/uL; Monocyte% 10.7 % (0-10); NRBC Flagged by Analyzer 0 % (0-5); Neutrophil # 4.44 X10^3/uL (2.7-7.7); Neutrophil % 67.1 % (47-70); Platelet Count 297 K/mm3 (150-450); RBC Distribution Width CV 14.3 % (11.6-14.6); RBC Distribution Width SD 47.6 fl (35.1-43.9); Red Blood Count 4.69 M/mm3 (4.2-5.4); White Blood Count 6.6 K/mm3 (4.4-11.0)
[2020-12-14 17:06] LABS: Vitamin D,25 Hydroxy 62.2 ng/mL
[2020-12-14 17:16] LABS: AST(SGOT) 22 U/L (15-37); Alanine Aminotransfer ALT/SGPT 26 U/L (13-56); Albumin, Serum 3.6 g/dL (3.2-5.0); Alkaline Phosphatase 96 U/L (45-117); Anion Gap 7 (5-15); BUN 16 mg/dL (7-18); BUN/Creat Ratio 21.5 RATIO (10-20); Calcium,Total 8.8 mg/dL (8.5-10.1); Chloride 103 mmol/L (98-107); Cholesterol 163 mg/dL (200); Creatinine, Serum 0.74 mg/dL (0.55-1.02); EST Glomerular Filtration Rate 79 mL/min (>60); Est Glom Filt Rate - Afr Amer 95 mL/min (>60); Globulin 3.6 g/dL (2.2-4.2); Glucose 92 mg/dL (74-106); High Density Lipoprotein 69 mg/dL; Protein, Total 7.2 g/dL (6.4-8.2); Sodium Level 137 mmol/L (136-145); Thyroid Stim Hormone (TSH) 2.24 uIU/mL (0.358-3.74); Triglycerides 123 mg/dL; Very Low Density Lipoprotein 25 mg/dL (5-40)
== END ==
PROVIDERS: PCP Family Medicine Geriatric Medicine; Visit Provider Family Medicine Geriatric Medicine
DX: E55.9 Vitamin D deficiency, unspecified (principal); I10 Essential (primary) hypertension; E78.5 Hyperlipidemia, unspecified; N39.0 Urinary tract infection, site not specified
CPT/HCPCS: 36415; 80053; 80061; 82306; 84443; 85025; 87086; 87088; 87186

== ENCOUNTER → 2020-12-28 14:15 | Outpatient (CLI) | payer MEDICARE, SELFPAY ==
[2020-10-27 11:24] VITALS: BMI 27.2
--- NOTE | 2020-12-28 14:20 | RAD_ITS ---
STUDY: X-RAY - LEFT ANKLE REASON FOR EXAM: Left lateral ankle pain, fall yesterday. TECHNIQUE: 3 view(s) of the ankle. COMPARISON: None. FINDINGS: Normal visualized distal tibia and fibula. Normal medial and lateral malleoli. Normal tibiotalar articulation and ankle mortise. Normal visualized talus and calcaneus. The visualized subtalar, talonavicular, calcaneocuboid and tarsal articulations are normal. There is soft tissue swelling overlying the lateral malleolus. There are surgical clips in the medial aspect of the distal lower leg. RAD/Ankle min 3 Views IMPRESSION: Soft tissue swelling. No demonstrated fracture. Electronically Signed: Humberto Mejia MD at 14:48 EST Tel , Service support ,
== END ==
PROVIDERS: PCP Family Medicine Geriatric Medicine; Referring Provider Family Medicine Geriatric Medicine; Visit Provider Family Medicine Geriatric Medicine
DX: M25.579 Pain in unspecified ankle and joints of unspecified foot (principal)
CPT/HCPCS: 73610

== ENCOUNTER → 2021-01-11 12:39 | Outpatient (CLI) | payer MEDICARE, SELFPAY ==
[2020-10-27 11:24] VITALS: BMI 27.2
--- NOTE | 2021-01-11 12:49 | CR.HP_ITS ---
CR - History & Physical - General Arrival date:: 01/11/21 Arrival time:: 12:50 Date of Referral:: 09/08/20 Date of CR Evaluation:: 01/11/21 Referring Physician: Dr. Ivan Rowland Primary Diagnosis: Z95.5 PCI with coronary stent - History of Present Cardiac Event Onset Date: Enter Onset Date of cardiac illnesses in Comment field below PTCA or coronary stenting:: Yes - 09/08/20 - Medications Home Medications: Ambulatory Orders Medication Instructions Recorded metoprolol succinate 50 mg 50 mg PO QDAY tab 11/13/17 tablet,extended release 24 hr nitroglycerin 0.4 mg sublingual 0.4 mg SUBLINGUAL Q5-15M PRN 11/14/17 tablet aspirin 81 mg chewable tablet 81 mg PO QDAY 05/14/18 cholecalciferol (vitamin D3) 50 1,000 unit PO QDAY cap 09/02/20 mcg (2,000 unit) capsule citalopram 10 mg tablet 20 mg PO QDAY tab 09/02/20 omeprazole 40 mg capsule,delayed 40 mg PO DAILY 09/02/20 release oxybutynin chloride 5 mg tablet 5 mg PO DAILY 09/02/20 atorvastatin 40 mg tablet See Rx Instructions .ROUTE 09/21/20 .COMPLEX #90 tab levothyroxine 25 mcg tablet 25 mcg PO DAILY 10/27/20 clopidogrel 75 mg tablet See Rx Instructions .ROUTE 11/02/20 .COMPLEX #90 tab amlodipine 10 mg tablet See Rx Instructions .ROUTE 01/04/21 .COMPLEX #90 tab - Allergies Allergies/Adverse Reactions: Allergies lisinopril Allergy (Severe, Verified 10/27/20 11:22) unknown simvastatin Allergy (Severe, Verified 10/27/20 11:22) Swelling of mouth and throat Sulfa (Sulfonamide Antibiotics) Allergy (Severe, Verified 10/27/20 11:22) unknown - Sleep Disorder Evaluation Hx of Sleep Apnea: No Do you snore loudly (louder than talking or can be heard through closed doors)?: No Do you often feel tired/ fatigued/ sleepy during daytime?: No Has anyone observed you stop breathing during sleep?: No History of Hypertension (for STOP score): Yes STOP Results: Negative Advanced Directives - Advanced Directives Power of Design Release Engineer: Yes Living Will: Yes Advance Directives Information Provided: Yes Advance Directives on File: Yes DNR Order?:: No Past Medical History - Covid-19 Screening Fever: No Unexplained muscle aches: No Current respiratory symptoms: No Upper respiratory infections symptoms: No Gastro-intestinal symptoms: No Gfz-Jbfn-Cmaffd symptoms: No Has tested positive for COVID-19 in last 30 days: No Had contact w/person w/symptoms or Covid-19 (+) last 14 days: No Has High Risk Exposures ID'd by Health dept/Inf Control team: No 65 years or older:: Yes Lives in Assisted Living facility:: No Has a chronic lung disease or moderate to severe asthma:: No Has a serious heart condition:: Yes Immunocompromised:: No Severely obese (Body Mass Index of 40 or higher):: No Diabetic:: No Has chronic kidney disease undergoing dialysis:: No Has liver disease:: No - Past Medical Illness Medical History: Past Medical History (Last Updated 09/08/20 @ 18:58 by Laurence Rodriguez) 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 Essential (primary) hypertension (Chronic) I10 Hyperlipidemia (Chronic) E78.5 Carotid artery stenosis (Chronic) I65.29 Palpitations (Chronic) R00.2 Blood in stool K92.1 Diarrhea R19.7 Atherosclerotic heart disease of [place] coronary artery with angina pectoris with documented spasm (Ruled-out) I25.111 - Past Surgical History Surgical History: Past Surgical History (Last Updated 09/08/20 @ 18:58 by Laurence Rodriguez) History of coronary artery stent placement (Acute) Onset Date: 09/08/20 Z95.5 FIN-LHY-Zjep SVG-RPDA w/ 3.50 x 38 mm Synergy MR Stent and TAI-Mid SVG-RPDA w/ 3.50 x 16 mm Synergy MR Stent 09/08/2020 H/O coronary artery bypass surgery (Resolved) Onset Date: 1997 Z95.1 CABG x 3 CHEEMA-LAD, SVG-OM3, SVG-RPDA 1997 History of tonsillectomy Z90.89 History of cataract surgery Z98.49 History of hernia repair Z98.890, Z87.19 History of hysterectomy Z90.710 History of left heart catheterization Onset Date: 1997 Z98.890 - Family History Summary Family History: Family History (Last Reviewed 09/02/20 @ 15:[address] Ivan Rowland MD) Mother CAD (coronary artery disease) Hx of CABG Myocardial infarction Hypertension Diabetes Social History - Smoking History Smoking Status: Never smoker Hx Tobacco Use: No Hx Smoking Exposure: No - Alcohol Use Alcohol Usage: No - Substance Abuse Hx Substance Use: No - Occupation Occupation (List type of work in comments):: Retired - Hobbies, Recreation, Social Activities Hobbies: Reading Recreational Activities: I am able to engage in all my recreational activities Social Environment - Status Marital Status: - Current Living Arrangements Living Environment:: Alone - Children How many children do you have?: 3 Do any of your children live nearby?: Yes - Safety Do you feel safe in your surroundings?: Yes - Assistance Do you need any assistance at home?: no Review of Systems - Review of Systems Hints: Right click = Denies (Slash). Left click = Reports (Council) Review of Present Symptoms: Reports: Shortness of Breath with Exertion, Fatigue, Appetite - Special Diet, Sleep - Normal. Denies: Shortness of Breath at Rest, PVD, Operative Discomfort, Angina, Wound Healing, Dizziness/Lightheadedness, Heart Arrhythmia/Irregularities, Appetite - Normal, Sexual Changes - Pain Is Patient Pain Free?: Yes Risk Factor Assessment - Chief Complaint Chief Complaint: PCI with stent - Vital Signs Pulse Ox: 95 Blood Pressure: 110/70 - Pulse Pulse Rate: 65 Pulse Rhythm: Regular - Hypertension How long have you been treated?: 20 - Diabetes Nutrition Referral for Diabetes: No - Obesity Height: 5 ft 2 in Weight:: 67.585 kg Weight in Pounds: 149.0 lbs Body Mass Index (BMI): 27.2 Nutritional Referral for Obesity: No - Physical Inactivity Physical Inactivity: Reg Exercise 30 min/day, Physically demanding job, Recreational activity - Risk Stratification Risk Guidelines: Lowest Risk: Risk Factor for Smoking, Risk Factor for Obesity, Moderate Risk: Risk Factor for Dyslipidemia, Risk Factor for Diabetes, Risk Factor for Hypertension, Risk Factor for Sedentary Lifestyle, Risk Factor for Depression - For Smoking Smoking Risk Guidelines: Smoking Low Risk: None or quit greater than 6 months ago. Smoking Moderate Risk: Smoker or quit 6 months or less ago. Smoking High Risk: Smoker - For Dyslipidemia Dyslipidemia Risk Guidelines: Low Risk: Moderate Risk: High Risk: 15-25% fat 25.1-29% fat >/= 30% fat. <7% sat fat 7-9% sat fat >9% sat fat. <150 mg chol 150-299 mg chol >/= 300 mg chol. LDL <100 LDL 100-129 LDL >/= 130. Chol/HDL ratio <5.0 Chol/HDL ratio 5.0-6.0 Chol/HDL ratio >6.0. Triglycerides <100 Triglycerides 100-149 Triglycerides >/= 150 - For Diabetes Mellitus Diabetes Risk Guidelines: Diabetes Low Risk: HgA1c <6.5% and/or FBG <120. Diabetes Moderate Risk: HgA1c 6.6-7.9% and/or FBG 120-180. Diabetes High Risk: HgA1c >/= 8% and/or FBG >180 - For Obesity/Overweight Obesity/Overweight Risk Guidelines: Obesity Low Risk: BMI <25.0. Obesity Moderate Risk: BMI 25-29.9. Obesity High Risk: BMI >/= 30.0 - For Hypertension Hypertension Risk Guidelines: Hypertension Low Risk: Systolic <120 and Diastolic <80. Hypertension Moderate Risk: Systolic 120-139 and Diastolic 80-89. Hypertension High Risk: Systolic >/= 140 and Diastolic >/= 90 - For Sedentary Lifestyle Sedentary Lifestyle Risk Guidelines: Sedentary Lifestyle Low Risk: >/= 1,500 kcal/week. Sedentary Lifestyle Moderate Risk: 700-1,499 kcal/week. Sedentary Lifestyle High Risk: < 700 kcal/week - For Depression Depression Risk Guidelines: Depression Low Risk: Not clinically depressed. Depression Moderate Risk: Mildly depressed. Depression High Risk: Clinically depressed - Family History Family History: Family History (Last Reviewed 09/02/20 @ 15:[address] Ivan Rowland MD) Mother CAD (coronary artery disease) Hx of CABG Myocardial infarction Hypertension Diabetes Motivation - Motivation to Participate On a scale of 1 to 10, how prepared are you to commit to attending program?: 5 What do you see as barriers to successfully being able to complete the program?: driving What do you see as the benefits of succesfully completing the program? In other words, what do you hope to get out of participating in the program?: beter breathing Are there issues you are dealing with that will interfere with completing the program?: no Do you have a spouse or signficant other, family or friends who will help support you to complete the program?: no
--- NOTE | 2021-01-11 12:50 | CR.ITP_ITS ---
Diagnosis - General Information Admitting Diagnosis: Z95.5 PCI with coronary stent Personal Learning Style:: Audio/Visual, Demonstration, Group, Individual Preference, Written Barriers to Learning: No Barriers Gave educational material for:: Treating Heart Disease, Emotions & Heart Disease, Stress Management & Relaxation, Sleep Disorders & Heart Disease, How The Heart Works, What it means to have Heart Disease, How Coronary Artery Disease is Diagnosed, Heart Procedures, What Heart Medications Do, Risk Factors & Modifications, Living an Active Life, Nutrition - Education/Goals Cardiac Rehabilitation Goals: 1. Maintain the individual as the primary focus of care. 2. To improve the patient's quality of life. 3. Identification of cardiac risk factors and provide cardiac risk factor management. 4. Enhance the psychosocial status of the patient. 5. Reconditioning enough to allow the patient to resume customary activities. 6. Control symptoms of cardiac disease Personal Goals: Initial Assessment: Improve energy level, Improve muscle strength and endurance, Improve diet and eating habits (eat healthier), Control risk factors (learn risk factor modification), Other goal: - balance Scale for measuring improvement of personal goals: Enter appropriate number in Comments. 2 = Unchanged. 3 = Slightly Better. 4 = Moderate Improvement. 5 = Met my Goal - Diagnosis & Disease Process Outcomes/Goals: Pt IDs own risk factors & lifestyle modifications by Session 10, Verbalizes symptoms of angina & response by session 3., Pt independently manages, Other Additional Outcomes/Goals: Plan/Interventions: Assist Pt to ID & engage in lifestyle modification to reduce CVD risk, Instruct on individual risk factors, Review symptoms of angina & emergency actions, Review secondary diagnosis & identify educational needs., Other see comment 30 day Reassessments:: Not Met 30 day Reassessments:: Not Met 30 day Reassessments:: Not Met 30 day Reassessments:: Not Met Final Reassessments:: Not Met - Safety Referral to Physical Therapy: No Referral to [facility] Case Management: No Fall Risk Assessed:: Yes Assistive Devices:: None Exercise - Initial Assessment - Visit Date of Eval: 01/11/21 - initial eval Mets: Pre-: >5 METS for 30 minutes by discharge - Stress Test MET LEVEL:: 2.5 EKG: NSR with ST an T wave abnormality - Physician Prescribed Exercise Modalities: Treadmill, Biodyne, Rower, Airdyne, NuStep, SciFit Frequency: 3x/week for 12 weeks [36 sessions] Intensity: 60-80% of age predicted maximum heart rate reserve Current METSs:: 2.5. Target Heart Rate:: 80-104 Resting Blood Pressure: 110/70 EKG Type: NSR ST and T wave abnormality - Outcomes & Goals Goals:: Verbalizes understanding of THR, RPE & goal METS by session 6, Documents in home exercise log/reports 30 min aerobic 5 day/wk by DC, Demonstrates accurate pulse taking by DC, Other additional outcome/goals: see below - Intervention & Plan Exercise Program Goals: Instruct on personal THR & RPE, Instruct on MET level & personal MET goal, Show patient to take own pulse /validate performance until accurate, Instruct on home exercise, Other additional plan/int - Physical Activity Home Exercise Physical Activity - Home Exercise: Safe Exercise, Warm-up, Self-monitoring, Cool-Down, Home Exercise > 30 min Daily, Sitting Time <3 hours/daily - Outcomes & Goals Outcomes/Goals: Demonstrates correct Warm-up/exercise Cool-Down (S3) if = 2.5 METs, Verbalizes symptoms of exercise intolerance by Session 3 (S3), Demonstrate safe equipment use (S3) & follows exercise prescrition (6), Other: See below - Intervention & Plan Plan/Intervention: Instruct warm-up & cool-down if exercising at > 2 METs, Instruct on symptoms of exercise intolerance & actions to take, Instruct & monitor on saf, Assess intial functional capacity & safety risk, Other See below Nutrition - Initial Assessment - Program Goals Nutrition Program Goals: LDL <100 optimal. 100 - 129 Near optimal. 130 - 159 Borderline High. 160 - 189 High. Total Cholesterol <200 desirable. 200 - 239 Borderline High. >/= 240 High. HDL < 40 Low >/=60 High. Triglycerides <150 desirable. <199 optimal. VlDL 5 - 40. HgbA1C <7%. BMI <25 Patient has diagnosis of Hyperlipidemia (ICD E78)?: Yes - Visit Date of Assessment:: 01/11/21 - Cholesterol/Lipids Determine presence & major risk factors that modify LDL goal: Family history of premature CHD in Male < 55 years: female <65 yearsFa, Age men > 45 years; women >/= 55 years Outcomes/Goals: Pt IDs own risk factors & lifestyle modifications by Session 10, Verbalizes symptoms of angina & response by session 3., Pt independently manages, Other Additional Outcomes/Goals: Intervention/Plan: Advocate for lipid panel cholesterol medication if applicable, Instruct on personal lipid levels & lipid goals/NCEP guidelines, Instruct on cholesterol, Other additional plan/int - Diabetes (Other Core Measures) Diabetes Type: Not Applicable - Weight Mgt (Other Care) Height: 5 ft 2 in Weight:: 67.585 kg BMI: 27.2 Diagnosis Overweight/Obesity BMI> 30% ICD-10 E66: No Diagnosis High BMI/Morbid Obesity BMI> 35% ICD-10 Z68: No Outcomes/Goals: Pt sets, maintains & shows weight loss goal & trend during rehab, Other additional outcomes/goals Intervention/Plan: Instruct on ideal BMI & set weight loss goal w/patient, Assist pt to ID & incorporate diet changes for weight loss by S9, Refer to Structured Weight Loss program as appropriate, Encourage goal of using 250- 300dcal per session for weight loss, Other additional plan/interventions - Healthy Eating Habits Outcomes/Goals:: Consume diet rich in vegs,fruits,whole grain/high fiber,fish,lean meat, Limit sat/trans fats,cholesterol & added salts & sugars, Other additional outcome/goals: Intervention/Plan:: Assess current eating habits, Other Additional plan/interventions - Education Gave educational materials for:: Signs & symptoms of hypoglycemia, Relate diabetes to coronary artery disease, Healthy eating Medical - Initial Assessment - Visit Date of Eval: 01/11/21 - initial eval - Medication Compliance Preventative Medication(s):: Aspirin, Clopidogrel/P2Y12 inhibit, Statin/lipid, Beta radhika H/O mental health issues: depression, anxiety, or addiction?: No Doesn?t believe in the benefits of treatment?: No Believes medications are unnecessary or harmful?: No Has a concern about medication side effects?: No Expresses concern over the cost of medications?: No Outcomes/Goals: Verbalizes medications,desired effect & common side effects @ DC, Pt self-reports following medication regimen, Keeps card in wallet w/medications listed by DC, Other additional outcome/goals: Interventions/plans: Instruct on medication effects & side effects, Review medication list w/patient every two weeks, Instruct importance of taking meds as ordered & assist problem solving, Other additional - Tobacco Use Tobacco Use: Non-smoker - Hypertension Hypertension Diagnosis:: Hypertension ICD-10 I10 Resting Blood Pressure:: 110/70 [place] [employer] Hypertension Guidelines: [place] [employer] Hypertension Guidelines. Normal BP Less than 120/80. Elevated BP 120/80. Hypertension Stage 1: BP 130-139/80-89. Hypertesnion Stage 2: BP 140 or higher/90 or higher. Hypertension Crisis: BP higher than 180/120 Outcomes/Goals: Able to verbalize/achieve optimal blood pressure <130/80, Incorporates diet changes & exercise for blood pressure control by DC, Other additional outcomes/goals Interventions/plan: Instruct on optimal blood pressure, hypertension & medications, Instruct on effects of sodium, alcohol, stress, exercise &hypertension, Other additional plan/interventions - Tobacco Cessation Referral Smoking Cessation Referral:: No Individual Education/Counseling:: No Education Schedule Given:: Yes Psychosocial - Initial Assess - VIsit Date of Eval: 01/11/21 - initial eval History of previous Mental disease:: No - Target Goals Target Goals: Assess presence or absence of depression. Using a valid screening tool, maximizes coping skills. Positive support system - Psychosocial Test phq-9 Severity: Severity. 1-4 Minimal Depression. 5-9 Mild Depression. 10-14 Moderate Depression. 15-19 Moderately Sever Depression. 20-27 Severe Depression. Rule: - Outcomes/Goals: See list Psychosocial Outcomes/Goals:: ID's personal stressors & 2 strategies to manage stress by discharge, Other Additional outcome/goals: - Intervention/Plan: See List Interventions/Plan:: Assess stressors,coping strategies & signs of derpression on admission, Instruct/assist pt to develop coping & personal stress Mgt strategies, Refer to Behavioral Health if appropriate, Refer to Physician if appropriate, Instruct patient to recognize signs & symptoms of depression, Instruct patient to recog, Other additional plan/intervention Patient Health Questionnaire Initial Assessment 1. Little interest or pleasure in doing things: Several days 2. Feeling down, depressed, or hopeless: Several days 3. Trouble falling or staying asleep, or sleeping too much: More than half the days 5. Poor appetite or overeating: Not at all 6. Feeling bad about yourself -- or that you are a failure or have let yourself or your family down: Not at all 7. Trouble concentrating on things, such as reading the newspaper or watching television: Not at all 8. Moving or speaking so slowly that other people could have noticed. Or the opposite - being so fidgety or restless that you have been moving around a lot more than usual: Not at all 9. Thoughts that you would be better off , or of hurting yourself in some way: Not at all How difficult have these problems made it for you to do your work, take care of things at home, or get along with other people?: Not difficult at all Total Score: 4 LORAINE-Q SV Test - Statements CAD is a disease of the arteries in the heart: False Examples of risk factors for heart disease: True Angina is chest pain or discomfort: True The benefits of resistance training include: True Eating more meat and dairy products: False Anti-platelet medications such as aspirin are important: True The only effective way to manage stress: False An exercise warm-up slowly increases heart rate: True Prepared, processed foods usually have high sodium: True Depression is common after a heart attack: True The statin medications lower cholesterol: True To control blood pressure, lower the amount of sodium: True If someone gets chest discomfort during walking: False Transfats are partially hydrogenated vegetable oils: True Sleep apnea that is not treated increases the risk: I Don't Know To control cholesterol, one should become a vegetarian: False Someone knows if he/she is exercising at the right level: True Diabetes cannot be prevented with exercise & health eating: True Stress is a large risk for heart attack: True A diet that can help lower blood pressure is rich in: True - Total Score Total Correct Responses: 18 Self-Efficacy Initial Assessment We would like to know how confident you are in doing certain activities. Please select your confidence level for:: Select your confidence level for the following using the scale 1-10 where 1 is not at all confident and 10 is totally confident. Your score is the average of all 6 responses. Fatigue: How confident are you that you can keep the fatigue caused by your disease from interfering with the things you want to do? Select Number: 8 Physical Discomfort or Pain: How confident are you that you can keep the physical discomfort or pain of your disease from interfering with the things you want to do? Select Number: 8 Emotional Distress: How confident are you that you can keep the emotional distress caused by your disease from interfering with the things you want to do? Select Number: 8 Other Symptoms or Health Problems: How confident are you that you can keep other symptoms or health problems from interfering with the things you want to do? Select Number: 8 Different Tasks and Activities: How confident are you that you can do the different tasks and activities needed to manage your health condition so as to reduce your need to see a doctor? Select Number: 8 Medication: How confident are you that you can do things other than just taking medication to reduce how much your illness affects your everyday life? Select Number: 10 Total Score:: 8 Nutrition Survey - Nutrition Survey Instructions Scoring Instructions: Scoring is as follows: Yes = 1 points. No = 0 point. Patient score that is >/=12 is considered to be at potential nutritional risk and could benefit from a referral to a registered dietitian. - Nutrition Survey Initial Have you lost >10 lbs over the past 2 months without trying?: No Are you following a special diet at home for diabetes, low fat, or low salt?: No Are you interested in meeting with a dietitian for help understanding your diet?: No Do you eat less than 3 meals a day?: No Do you eat fatty meats (santoro, sausage, ribs, etc), fried foods, desserts, large amounts of salad dressings, margarine, butter, or cheese most days?: No Do you have food allergies? [Enter types in comment field]: No Do you eat in restaurants more than 3 times a week?: No Do you season food with salt, seasoning salt, or garlic salt?: No Do you used canned, boxed, frozen meals, or soups, seasoning packets?: Yes Total Score:: 1
[2021-01-11 13:52] VITALS: BP 110/70; PULSE 65; O2SAT 95; BMI 27.2
== END ==
PROVIDERS: PCP Family Medicine Geriatric Medicine; Referring Provider Internal Medicine Cardiovascular Disease; Visit Provider Internal Medicine Cardiovascular Disease
DX: Z95.5 Presence of coronary angioplasty implant and graft (principal)

== ENCOUNTER 2021-02-03 13:00 | Outpatient (RCR) | payer MEDICARE, SELFPAY ==
[2021-01-11 13:52] VITALS: BMI 27.2
== END 2021-02-03 23:59 ==
LOC: CR 13:00
PROVIDERS: PCP Family Medicine Geriatric Medicine; Referring Provider Internal Medicine Cardiovascular Disease; Visit Provider Internal Medicine Cardiovascular Disease
DX: I25.10 Atherosclerotic heart disease of native coronary artery without angina pectoris (principal); Z95.1 Presence of aortocoronary bypass graft
CPT/HCPCS: 93798

== ENCOUNTER → 2021-03-01 15:43 | Outpatient (CLI) | payer MEDICARE, SELFPAY ==
[2021-01-27 13:38] VITALS: BMI 26.9
[2021-02-10 07:25] VITALS: BMI 27.1
--- NOTE | 2021-03-01 15:46 | VDLE_ITS ---
Reason For Study: Edema LEFT CFV is compressible, spontaneous, phasic, competent, and demonstrates normal augmentation. FV is compressible, spontaneous, phasic, competent and demonstrates normal augmentation. POP V is compressible, spontaneous, phasic, competent and demonstrates normal augmentation. T/P Trunk is compressible. PTV is compressible. LT PerV is compressible. GSV was previously harvested. VL/Venous Duplex US, Unilateral Interpretation Summary There is no evidence of left lower extremity deep vein thrombosis. Harvested le ft great saphenous vein Ordering Physician: Brian Mckee Referring Physician: Brian Mckee Chi Performed By: Sigrid Marte RVT
== END ==
PROVIDERS: PCP Family Medicine Geriatric Medicine; Referring Provider Family Medicine Geriatric Medicine; Visit Provider Family Medicine Geriatric Medicine
DX: R60.9 Edema, unspecified (principal)
CPT/HCPCS: 93971

== ENCOUNTER 2021-03-05 13:00 | Outpatient (RCR) | payer MEDICARE, SELFPAY ==
[2021-01-11 13:52] VITALS: BMI 27.2
[2021-01-27 13:38] VITALS: BMI 26.9
--- NOTE | 2021-02-10 07:17 | PCM.CR.ITP ---
Exercise - 30-day Assessment - Visit Date of Eval: 02/10/21 Session #:: 6 - Physician Prescribed Exercise Modalities: Treadmill, Airdyne, NuStep Frequency: 3x/week for 12 weeks [36 sessions] Intensity: 60-80% of age predicted maximum heart rate reserve Current METSs:: 2.5 Target Heart Rate:: 80-104 Current RPE:: 11-13 Maximum Excercise HR:: 103 Resting Blood Pressure: 124/60 Maximum Exercise Blood Pressure: 126/68 EKG Type: NSR to sinus tachycardia PAC - Outcomes & Goals Goals:: Verbalizes understanding of THR, RPE & goal METS by session 6, Documents in home exercise log/reports 30 min aerobic 5 day/wk by DC, Demonstrates accurate pulse taking by DC - Intervention & Plan Exercise Program Goals: Instruct on personal THR & RPE, Instruct on MET level & personal MET goal, Show patient to take own pulse /validate performance until accurate, Instruct on home exercise - 30-day Reassessments 30 day Reassessments:: Progressing - Physical Activity Home Exercise Physical Activity - Home Exercise: Safe Exercise, Warm-up, Self-monitoring, Cool-Down, Home Exercise > 30 min Daily, Sitting Time <3 hours/daily - Outcomes & Goals Outcomes/Goals: Demonstrates correct Warm-up/exercise Cool-Down (S3) if = 2.5 METs, Verbalizes symptoms of exercise intolerance by Session 3 (S3), Demonstrate safe equipment use (S3) & follows exercise prescrition (6) - Intervention & Plan Plan/Intervention: Instruct warm-up & cool-down if exercising at > 2 METs, Instruct on symptoms of exercise intolerance & actions to take, Instruct & monitor on saf, Assess intial functional capacity & safety risk - 30-day Reassessments 30 day Reassessments:: Progressing Nutrition - 30-Day Assessment - Program Goals Nutrition Program Goals: LDL <100 optimal. 100 - 129 Near optimal. 130 - 159 Borderline High. 160 - 189 High. Total Cholesterol <200 desirable. 200 - 239 Borderline High. >/= 240 High. HDL < 40 Low >/=60 High. Triglycerides <150 desirable. <199 optimal. VlDL 5 - 40. HgbA1C <7%. BMI <25 Patient has diagnosis of Hyperlipidemia (ICD E78)?: Yes - Visit Date of Assessment:: 02/10/21 Session #:: 6 - Cholesterol/Lipids Determine presence & major risk factors that modify LDL goal: Hypertension or hypertensive medication, Family history of premature CHD in Male < 55 years: female <65 yearsFa, Age men > 45 years; women >/= 55 years Outcomes/Goals: Pt IDs own risk factors & lifestyle modifications by Session 10, Verbalizes symptoms of angina & response by session 3., Pt independently manages Intervention/Plan: Instruct on personal lipid levels & lipid goals/NCEP guidelines, Instruct on cholesterol Referral to dietitian:: Yes 30-day Reassessments:: Progressing - Diabetes (Other Core Measures) Diabetes Type: Not Applicable - Weight Mgt (Other Care) Not Applicable: Yes Height: 5 ft 2 in Weight:: 148 lb BMI: 27.1 Diagnosis Overweight/Obesity BMI> 30% ICD-10 E66: No Diagnosis High BMI/Morbid Obesity BMI> 35% ICD-10 Z68: No Outcomes/Goals: Pt sets, maintains & shows weight loss goal & trend during rehab Intervention/Plan: Instruct on ideal BMI & set weight loss goal w/patient, Assist pt to ID & incorporate diet changes for weight loss by S9, Encourage goal of using 250-300dcal per session for weight loss 30 day Reassessments:: Progressing - Healthy Eating Habits Will attend diet classes:: Yes Outcomes/Goals:: Consume diet rich in vegs,fruits,whole grain/high fiber,fish,lean meat, Limit sat/trans fats,cholesterol & added salts & sugars Intervention/Plan:: Assess current eating habits 30-day Reassessments:: Progressing - Education Gave educational materials for:: Healthy eating Medical- 30-Day Assessment - Visit Date of Eval: 02/10/21 Session #:: 6 - Medication Compliance Preventative Medication(s):: Ticagrelor/P2Y12 inhibitor, Statin/lipid, Beta radhika H/O mental health issues: depression, anxiety, or addiction?: No Doesn?t believe in the benefits of treatment?: No Believes medications are unnecessary or harmful?: No Has a concern about medication side effects?: No Expresses concern over the cost of medications?: No Outcomes/Goals: Verbalizes medications,desired effect & common side effects @ DC, Pt self-reports following medication regimen, Keeps card in wallet w/medications listed by DC Interventions/plans: Instruct on medication effects & side effects, Review medication list w/patient every two weeks, Instruct importance of taking meds as ordered & assist problem solving 30-day Reassessments:: Progressing - Tobacco Use Tobacco Use: Non-smoker 30-day Reassessments:: Progressing - Hypertension Resting Blood Pressure:: 124/60 [place] [employer] Hypertension Guidelines: [place] [employer] Hypertension Guidelines. Normal BP Less than 120/80. Elevated BP 120/80. Hypertension Stage 1: BP 130-139/80-89. Hypertesnion Stage 2: BP 140 or higher/90 or higher. Hypertension Crisis: BP higher than 180/120 Peak Exercise Blood Pressure:: 126/68 Outcomes/Goals: Able to verbalize/achieve optimal blood pressure <130/80, Incorporates diet changes & exercise for blood pressure control by DC Interventions/plan: Instruct on optimal blood pressure, hypertension & medications, Instruct on effects of sodium, alcohol, stress, exercise &hypertension 30 day Reassessments:: Progressing - Tobacco Cessation Referral Smoking Cessation Referral:: No Individual Education/Counseling:: No Education Schedule Given:: Yes Psychosocial - 30-Day Assess - VIsit Date of Eval: 02/10/21 Session #:: 6 Not Applicable: No History of previous Mental disease:: No - Target Goals Target Goals: Assess presence or absence of depression. Using a valid screening tool, maximizes coping skills. Positive support system - Psychosocial Test Tool Used:: PHQ-9 Questionnaire phq-9 Severity: Severity. 1-4 Minimal Depression. 5-9 Mild Depression. 10-14 Moderate Depression. 15-19 Moderately Sever Depression. 20-27 Severe Depression. Rule: - Referral to Behavioral Health PS - Interventions: Yes Attend Stress Management Classes, No Referral to Behavioral Health if PHQ-9 score >9:, No Referral to [facility], No Referral to Physician if PHQ-9 if score is 5-9: - Outcomes/Goals: See list Psychosocial Outcomes/Goals:: ID's personal stressors & 2 strategies to manage stress by discharge - Intervention/Plan: See List Interventions/Plan:: Assess stressors,coping strategies & signs of derpression on admission, Instruct patient to recognize signs & symptoms of depression, Instruct patient to recog - 30-day Reassessments: 30 day Reassessments:: Progressing Patient Health Questionnaire 30-Day Re-eval Assessment 1. Little interest or pleasure in doing things: Not at all 2. Feeling down, depressed, or hopeless: Not at all 3. Trouble falling or staying asleep, or sleeping too much: Several days 4. Feeling tired or having little energy: Several days 5. Poor appetite or overeating: Not at all 6. Feeling bad about yourself -- or that you are a failure or have let yourself or your family down: Not at all 7. Trouble concentrating on things, such as reading the newspaper or watching television: Several days 8. Moving or speaking so slowly that other people could have noticed. Or the opposite - being so fidgety or restless that you have been moving around a lot more than usual: Several days 9. Thoughts that you would be better off , or of hurting yourself in some way: Not at all How difficult have these problems made it for you to do your work, take care of things at home, or get along with other people?: Not difficult at all Total Score: 4 Self-Efficacy 30-Day Re-eval Assessment We would like to know how confident you are in doing certain activities. Please select your confidence level for:: Select your confidence level for the following using the scale 1-10 where 1 is not at all confident and 10 is totally confident. Your score is the average of all 6 responses. Fatigue: How confident are you that you can keep the fatigue caused by your disease from interfering with the things you want to do? Select Number: 5 Physical Discomfort or Pain: How confident are you that you can keep the physical discomfort or pain of your disease from interfering with the things you want to do? Select Number: 4 Emotional Distress: How confident are you that you can keep the emotional distress caused by your disease from interfering with the things you want to do? Select Number: 6 Other Symptoms or Health Problems: How confident are you that you can keep other symptoms or health problems from interfering with the things you want to do? Select Number: 5 Different Tasks and Activities: How confident are you that you can do the different tasks and activities needed to manage your health condition so as to reduce your need to see a doctor? Select Number: 4 Medication: How confident are you that you can do things other than just taking medication to reduce how much your illness affects your everyday life? Select Number: 7 Total Score:: 5
[2021-02-10 07:25] VITALS: BP 124/60; BP 126/68; BMI 27.1
== END 2021-03-05 23:59 ==
LOC: CR 13:00
PROVIDERS: PCP Family Medicine Geriatric Medicine; Referring Provider Internal Medicine Cardiovascular Disease; Visit Provider Internal Medicine Cardiovascular Disease
DX: I25.10 Atherosclerotic heart disease of native coronary artery without angina pectoris (principal); Z95.1 Presence of aortocoronary bypass graft; Z95.5 Presence of coronary angioplasty implant and graft
CPT/HCPCS: 93798

== ENCOUNTER 2021-04-02 13:00 | Outpatient (RCR) | payer MEDICARE, SELFPAY ==
[2021-01-27 13:38] VITALS: BMI 26.9
[2021-02-10 07:25] VITALS: BMI 27.1
[2021-03-06 00:46] VITALS: BP 124/60; BP 126/68
--- NOTE | 2021-03-12 07:26 | PCM.CR.ITP ---
Diagnosis Exercise - 60-day Assessment - Visit Date of Eval: 03/12/21 Session #:: 17 - Patient has missed 3 sessions. - Physician Prescribed Exercise Modalities: Treadmill, Airdyne, NuStep Frequency: 3x/week for 12 weeks [36 sessions] Intensity: 60-80% of age predicted maximum heart rate reserve Current METSs:: 2.5 Target Heart Rate:: 80-104 Current RPE:: 12-13 Maximum Excercise HR:: 104 Resting Blood Pressure: 120/64 Maximum Exercise Blood Pressure: 144/72 EKG Type: NSR with rare PACs. - Outcomes & Goals Goals:: Verbalizes understanding of THR, RPE & goal METS by session 6, Documents in home exercise log/reports 30 min aerobic 5 day/wk by DC, Demonstrates accurate pulse taking by DC - Intervention & Plan Exercise Program Goals: Instruct on personal THR & RPE, Instruct on MET level & personal MET goal, Show patient to take own pulse /validate performance until accurate, Instruct on home exercise - 30-day Reassessments 30 day Reassessments:: Met - Physical Activity Home Exercise Physical Activity - Home Exercise: Safe Exercise, Warm-up, Self-monitoring, Cool-Down, Home Exercise > 30 min Daily, Sitting Time <3 hours/daily - Outcomes & Goals Outcomes/Goals: Demonstrates correct Warm-up/exercise Cool-Down (S3) if = 2.5 METs, Verbalizes symptoms of exercise intolerance by Session 3 (S3), Demonstrate safe equipment use (S3) & follows exercise prescrition (6) - Intervention & Plan Plan/Intervention: Instruct warm-up & cool-down if exercising at > 2 METs, Instruct on symptoms of exercise intolerance & actions to take, Instruct & monitor on saf, Assess intial functional capacity & safety risk - 30-day Reassessments 30 day Reassessments:: Met Nutrition - Initial Assessment Nutrition - 30-Day Assessment Nutrition - 60-Day Assessment - Program Goals Nutrition Program Goals: LDL <100 optimal. 100 - 129 Near optimal. 130 - 159 Borderline High. 160 - 189 High. Total Cholesterol <200 desirable. 200 - 239 Borderline High. >/= 240 High. HDL < 40 Low >/=60 High. Triglycerides <150 desirable. <199 optimal. VlDL 5 - 40. HgbA1C <7%. BMI <25 Patient has diagnosis of Hyperlipidemia (ICD E78)?: Yes - Visit Date of Assessment:: 03/12/21 Session #:: 17 - Cholesterol/Lipids Triglycerides (mg/dL): 123 - 12/14/2020 Total Cholesterol (mg/dL): 163 LDL Cholesterol (mg/dL): 69 HDL Cholesterol (mg/dL): 69 Determine presence & major risk factors that modify LDL goal: Hypertension or hypertensive medication, Low HDL cholesterol <40 mg/dL*, Family history of premature CHD in Male < 55 years: female <65 yearsFa, Age men > 45 years; women >/= 55 years Outcomes/Goals: Pt IDs own risk factors & lifestyle modifications by Session 10, Verbalizes symptoms of angina & response by session 3., Pt independently manages Intervention/Plan: Instruct on personal lipid levels & lipid goals/NCEP guidelines, Instruct on cholesterol Referral to dietitian:: Yes 30-day Reassessments:: Progressing - Diabetes (Other Core Measures) Diabetes Type: Not Applicable - Weight Mgt (Other Care) Not Applicable: Yes Height: 5 ft 2 in - Weight:: 150 lb 8 oz BMI: 27.5 Diagnosis Overweight/Obesity BMI> 30% ICD-10 E66: No Diagnosis High BMI/Morbid Obesity BMI> 35% ICD-10 Z68: No Outcomes/Goals: Pt sets, maintains & shows weight loss goal & trend during rehab Intervention/Plan: Instruct on ideal BMI & set weight loss goal w/patient, Assist pt to ID & incorporate diet changes for weight loss by S9, Encourage goal of using 250-300dcal per session for weight loss 30 day Reassessments:: Progressing - Healthy Eating Habits Will attend diet classes:: Yes Outcomes/Goals:: Consume diet rich in vegs,fruits,whole grain/high fiber,fish,lean meat, Limit sat/trans fats,cholesterol & added salts & sugars Intervention/Plan:: Assess current eating habits - Low fat, Low cholesterol, Low sodium diet. 30-day Reassessments:: Progressing Nutrition - 90-Day Assessment Nutrition - Final Assessment Medical - Initial Assessment Medical- 30-Day Assessment Medical- 60-Day Assessment - Visit Date of Eval: 03/12/21 Session #:: 17 - Medication Compliance Preventative Medication(s):: Aspirin, Clopidogrel/P2Y12 inhibit, Statin/lipid, Beta radhika H/O mental health issues: depression, anxiety, or addiction?: No Doesn?t believe in the benefits of treatment?: No Believes medications are unnecessary or harmful?: No Has a concern about medication side effects?: No Expresses concern over the cost of medications?: No Outcomes/Goals: Verbalizes medications,desired effect & common side effects @ DC, Pt self-reports following medication regimen, Keeps card in wallet w/medications listed by DC Interventions/plans: Instruct on medication effects & side effects, Review medication list w/patient every two weeks, Instruct importance of taking meds as ordered & assist problem solving 30-day Reassessments:: Progressing - Tobacco Use Tobacco Use: Non-smoker - Hypertension Hypertension Diagnosis:: Hypertension ICD-10 I10 Resting Blood Pressure:: 120/64 [place] [employer] Hypertension Guidelines: [place] [employer] Hypertension Guidelines. Normal BP Less than 120/80. Elevated BP 120/80. Hypertension Stage 1: BP 130-139/80-89. Hypertesnion Stage 2: BP 140 or higher/90 or higher. Hypertension Crisis: BP higher than 180/120 Peak Exercise Blood Pressure:: 144/72 Outcomes/Goals: Able to verbalize/achieve optimal blood pressure <130/80, Incorporates diet changes & exercise for blood pressure control by DC Interventions/plan: Instruct on optimal blood pressure, hypertension & medications, Instruct on effects of sodium, alcohol, stress, exercise &hypertension 30 day Reassessments:: Progressing - Tobacco Cessation Referral Smoking Cessation Referral:: No Individual Education/Counseling:: No Education Schedule Given:: Yes Medical- 90-Day Assessment Medical - Final Assessment Psychosocial - Initial Assess Psychosocial - 30-Day Assess Psychosocial - 60-Day Assess - VIsit Date of Eval: 03/12/21 Session #:: 17 Not Applicable: Yes History of previous Mental disease:: No - Psychosocial Test Tool Used:: PHQ-9 Questionnaire phq-9 Severity: Severity. 1-4 Minimal Depression. 5-9 Mild Depression. 10-14 Moderate Depression. 15-19 Moderately Sever Depression. 20-27 Severe Depression. Rule: - Referral to Behavioral Health PS - Interventions: Yes Attend Stress Management Classes, No Referral to Behavioral Health if PHQ-9 score >9:, No Referral to [facility], No Referral to Physician if PHQ-9 if score is 5-9: - Outcomes/Goals: See list Psychosocial Outcomes/Goals:: ID's personal stressors & 2 strategies to manage stress by discharge - Intervention/Plan: See List Interventions/Plan:: Assess stressors,coping strategies & signs of derpression on admission, Instruct/assist pt to develop coping & personal stress Mgt strategies, Instruct patient to recognize signs & symptoms of depression, Instruct patient to recog - 30-day Reassessments: 30 day Reassessments:: Progressing Psychosocial - 90-Day Assess Psychosocial - Final Assessmen Patient Health Questionnaire 60-Day Re-eval Assessment 1. Little interest or pleasure in doing things: Not at all 2. Feeling down, depressed, or hopeless: Not at all 3. Trouble falling or staying asleep, or sleeping too much: Several days 4. Feeling tired or having little energy: Several days 5. Poor appetite or overeating: Not at all 6. Feeling bad about yourself -- or that you are a failure or have let yourself or your family down: Not at all 7. Trouble concentrating on things, such as reading the newspaper or watching television: Several days 8. Moving or speaking so slowly that other people could have noticed. Or the opposite - being so fidgety or restless that you have been moving around a lot more than usual: Not at all 9. Thoughts that you would be better off , or of hurting yourself in some way: Not at all How difficult have these problems made it for you to do your work, take care of things at home, or get along with other people?: Not difficult at all Total Score: 3 Self-Efficacy 60-Day Re-eval Assessment We would like to know how confident you are in doing certain activities. Please select your confidence level for:: Select your confidence level for the following using the scale 1-10 where 1 is not at all confident and 10 is totally confident. Your score is the average of all 6 responses. Fatigue: How confident are you that you can keep the fatigue caused by your disease from interfering with the things you want to do? Select Number: 7 Physical Discomfort or Pain: How confident are you that you can keep the physical discomfort or pain of your disease from interfering with the things you want to do? Select Number: 6 Emotional Distress: How confident are you that you can keep the emotional distress caused by your disease from interfering with the things you want to do? Select Number: 8 Other Symptoms or Health Problems: How confident are you that you can keep other symptoms or health problems from interfering with the things you want to do? Select Number: 7 Different Tasks and Activities: How confident are you that you can do the different tasks and activities needed to manage your health condition so as to reduce your need to see a doctor? Select Number: 6 Medication: How confident are you that you can do things other than just taking medication to reduce how much your illness affects your everyday life? Select Number: 8 Total Score:: 7 Nutrition Survey
[2021-03-12 07:34] VITALS: BP 120/64; BP 144/72; BMI 27.5
== END 2021-04-05 23:59 ==
LOC: CR 13:00
PROVIDERS: PCP Family Medicine Geriatric Medicine; Referring Provider Internal Medicine Cardiovascular Disease; Visit Provider Internal Medicine Cardiovascular Disease
DX: I25.10 Atherosclerotic heart disease of native coronary artery without angina pectoris (principal); Z95.1 Presence of aortocoronary bypass graft; Z95.5 Presence of coronary angioplasty implant and graft
CPT/HCPCS: 93798

== ENCOUNTER 2021-04-30 13:00 | Outpatient (RCR) | payer MEDICARE, SELFPAY ==
[2021-01-27 13:38] VITALS: BMI 26.9
[2021-03-12 07:34] VITALS: BMI 27.5
[2021-04-06 00:31] VITALS: BP 120/64; BP 144/72
--- NOTE | 2021-04-12 07:23 | CR.ITP_ITS ---
Diagnosis Exercise - 90-day Assessment - Visit Date of Eval: 04/12/21 Session #:: 28 - Physician Prescribed Exercise Modalities: Treadmill, Airdyne, NuStep Frequency: 3x/week for 12 weeks [36 sessions] Intensity: 60-80% of age predicted maximum heart rate reserve Current METSs:: 2.5 Target Heart Rate:: 80-104 Current RPE:: 13-14 Maximum Excercise HR:: 149 Resting Blood Pressure: 122/80 Maximum Exercise Blood Pressure: 156/82 EKG Type: NSR to sinus tach with rare PAC - Outcomes & Goals Goals:: Verbalizes understanding of THR, RPE & goal METS by session 6, Documents in home exercise log/reports 30 min aerobic 5 day/wk by DC, Demonstrates accurate pulse taking by DC - Intervention & Plan Exercise Program Goals: Instruct on personal THR & RPE, Instruct on MET level & personal MET goal, Show patient to take own pulse /validate performance until accurate, Instruct on home exercise - 30-day Reassessments 30 day Reassessments:: Progressing - Physical Activity Home Exercise Physical Activity - Home Exercise: Safe Exercise, Warm-up, Self-monitoring, Cool-Down, Home Exercise > 30 min Daily, Sitting Time <3 hours/daily - Outcomes & Goals Outcomes/Goals: Demonstrates correct Warm-up/exercise Cool-Down (S3) if = 2.5 METs, Verbalizes symptoms of exercise intolerance by Session 3 (S3), Demonstrate safe equipment use (S3) & follows exercise prescrition (6) - Intervention & Plan Plan/Intervention: Instruct warm-up & cool-down if exercising at > 2 METs, Instruct on symptoms of exercise intolerance & actions to take, Instruct & monitor on saf, Assess intial functional capacity & safety risk - 30-day Reassessments 30 day Reassessments:: Progressing Nutrition - Initial Assessment Nutrition - 30-Day Assessment Nutrition - 60-Day Assessment Nutrition - 90-Day Assessment - Program Goals Nutrition Program Goals: LDL <100 optimal. 100 - 129 Near optimal. 130 - 159 Borderline High. 160 - 189 High. Total Cholesterol <200 desirable. 200 - 239 Borderline High. >/= 240 High. HDL < 40 Low >/=60 High. Triglycerides <150 desirable. <199 optimal. VlDL 5 - 40. HgbA1C <7%. BMI <25 Patient has diagnosis of Hyperlipidemia (ICD E78)?: Yes - Visit Date of Assessment:: 04/12/21 - no recent labs available - Cholesterol/Lipids Determine presence & major risk factors that modify LDL goal: Hypertension or hypertensive medication, Family history of premature CHD in Male < 55 years: female <65 yearsFa, Age men > 45 years; women >/= 55 years Outcomes/Goals: Pt IDs own risk factors & lifestyle modifications by Session 10, Verbalizes symptoms of angina & response by session 3., Pt independently manages Intervention/Plan: Instruct on personal lipid levels & lipid goals/NCEP guidelines, Instruct on cholesterol Referral to dietitian:: Yes 30-day Reassessments:: Progressing - Diabetes (Other Core Measures) Diabetes Type: Not Applicable - Weight Mgt (Other Care) Not Applicable: Yes Height: 5 ft 2 in Weight:: 149 lb BMI: 27.2 Diagnosis Overweight/Obesity BMI> 30% ICD-10 E66: No Diagnosis High BMI/Morbid Obesity BMI> 35% ICD-10 Z68: No Outcomes/Goals: Pt sets, maintains & shows weight loss goal & trend during rehab Intervention/Plan: Instruct on ideal BMI & set weight loss goal w/patient 30 day Reassessments:: Met - Healthy Eating Habits Will attend diet classes:: Yes Outcomes/Goals:: Consume diet rich in vegs,fruits,whole grain/high fiber,fish,lean meat, Limit sat/trans fats,cholesterol & added salts & sugars Intervention/Plan:: Assess current eating habits 30-day Reassessments:: Met - Education Gave educational materials for:: Healthy eating Nutrition - Final Assessment Medical - Initial Assessment Medical- 30-Day Assessment Medical- 60-Day Assessment Medical- 90-Day Assessment - Visit Date of Eval: 04/12/21 Session #:: 28 - Medication Compliance Preventative Medication(s):: Aspirin, Clopidogrel/P2Y12 inhibit, Statin/lipid, Beta radhika H/O mental health issues: depression, anxiety, or addiction?: No Doesn?t believe in the benefits of treatment?: No Believes medications are unnecessary or harmful?: No Has a concern about medication side effects?: No Expresses concern over the cost of medications?: No Outcomes/Goals: Verbalizes medications,desired effect & common side effects @ DC, Pt self-reports following medication regimen, Keeps card in wallet w/medications listed by DC Interventions/plans: Instruct on medication effects & side effects, Review medication list w/patient every two weeks, Instruct importance of taking meds as ordered & assist problem solving 30-day Reassessments:: Met - Tobacco Use Tobacco Use: Non-smoker - Hypertension Hypertension Diagnosis:: Hypertension ICD-10 I10 Resting Blood Pressure:: 122/80 [place] [employer] Hypertension Guidelines: [place] [employer] Hypertension Guidelines. Normal BP Less than 120/80. Elevated BP 120/80. Hypertension Stage 1: BP 130-139/80-89. Hypertesnion Stage 2: BP 140 or higher/90 or higher. Hypertension Crisis: BP higher than 180/120 Peak Exercise Blood Pressure:: 156/82 Outcomes/Goals: Able to verbalize/achieve optimal blood pressure <130/80, Incorporates diet changes & exercise for blood pressure control by DC Interventions/plan: Instruct on optimal blood pressure, hypertension & medications, Instruct on effects of sodium, alcohol, stress, exercise &hypertension 30 day Reassessments:: Progressing - Tobacco Cessation Referral Smoking Cessation Referral:: No Individual Education/Counseling:: No Education Schedule Given:: Yes Medical - Final Assessment Psychosocial - Initial Assess Psychosocial - 30-Day Assess Psychosocial - 60-Day Assess Psychosocial - 90-Day Assess - VIsit Date of Eval: 04/12/21 Session #:: 28 Not Applicable: Yes History of previous Mental disease:: No - Psychosocial Test Tool Used:: PHQ-9 Questionnaire phq-9 Severity: Severity. 1-4 Minimal Depression. 5-9 Mild Depression. 10-14 Moderate Depression. 15-19 Moderately Sever Depression. 20-27 Severe Depression. Rule: - Referral to Behavioral Health PS - Interventions: Yes Attend Stress Management Classes, No Referral to Behavioral Health if PHQ-9 score >9:, No Referral to [facility], No Referral to Physician if PHQ-9 if score is 5-9: - Outcomes/Goals: See list Psychosocial Outcomes/Goals:: ID's personal stressors & 2 strategies to manage stress by discharge - Intervention/Plan: See List Interventions/Plan:: Assess stressors,coping strategies & signs of derpression on admission, Instruct/assist pt to develop coping & personal stress Mgt strategies, Instruct patient to recognize signs & symptoms of depression, Instruct patient to recog - 30-day Reassessments: 30 day Reassessments:: Met Psychosocial - Final Assessmen Patient Health Questionnaire 90-Day Re-eval Assessment 1. Little interest or pleasure in doing things: Not at all 2. Feeling down, depressed, or hopeless: Not at all 3. Trouble falling or staying asleep, or sleeping too much: Several days 4. Feeling tired or having little energy: Not at all 5. Poor appetite or overeating: Not at all 6. Feeling bad about yourself -- or that you are a failure or have let yourself or your family down: Not at all 7. Trouble concentrating on things, such as reading the newspaper or watching television: Not at all 8. Moving or speaking so slowly that other people could have noticed. Or the opposite - being so fidgety or restless that you have been moving around a lot more than usual: Not at all 9. Thoughts that you would be better off , or of hurting yourself in some way: Not at all Total Score: 1 Self-Efficacy 90-Day Re-eval Assessment We would like to know how confident you are in doing certain activities. Please select your confidence level for:: Select your confidence level for the following using the scale 1-10 where 1 is not at all confident and 10 is totally confident. Your score is the average of all 6 responses. Fatigue: How confident are you that you can keep the fatigue caused by your disease from interfering with the things you want to do? Select Number: 9 Physical Discomfort or Pain: How confident are you that you can keep the physical discomfort or pain of your disease from interfering with the things you want to do? Select Number: 9 Emotional Distress: How confident are you that you can keep the emotional d istress caused by your disease from interfering with the things you want to do? Select Number: 10 Other Symptoms or Health Problems: How confident are you that you can keep other symptoms or health problems from interfering with the things you want to do? Select Number: 10 Different Tasks and Activities: How confident are you that you can do the different tasks and activities needed to manage your health condition so as to reduce your need to see a doctor? Select Number: 10 Medication: How confident are you that you can do things other than just taking medication to reduce how much your illness affects your everyday life? Select Number: 10 Total Score:: 9 Nutrition Survey
[2021-04-12 07:28] VITALS: BP 122/80; BP 156/82; BMI 27.2
== END 2021-05-05 23:59 ==
LOC: CR 13:00
PROVIDERS: PCP Family Medicine Geriatric Medicine; Referring Provider Internal Medicine Cardiovascular Disease; Visit Provider Internal Medicine Cardiovascular Disease
DX: I25.10 Atherosclerotic heart disease of native coronary artery without angina pectoris (principal); Z95.1 Presence of aortocoronary bypass graft; Z95.5 Presence of coronary angioplasty implant and graft
CPT/HCPCS: 93798

== ENCOUNTER → 2021-05-27 12:29 | Outpatient (CLI) | payer MEDICARE, SELFPAY ==
[2021-04-12 07:28] VITALS: BMI 27.2
[2021-05-27 11:12] VITALS: BMI 27.4
[2021-05-27 21:15] LABS: BNP,B-Type NATRIURETIC PEPTIDE 199.1 pg/mL (0-100)
== END ==
PROVIDERS: PCP Family Medicine Geriatric Medicine; Referring Provider Internal Medicine Cardiovascular Disease; Visit Provider Internal Medicine Cardiovascular Disease
DX: R06.02 Shortness of breath (principal)
CPT/HCPCS: 36415; 83880; 87426; C9803

== ENCOUNTER → 2021-06-14 13:22 | Outpatient (CLI) | payer MEDICARE, SELFPAY ==
[2021-04-12 07:28] VITALS: BMI 27.2
[2021-05-27 11:12] VITALS: BMI 27.4
[2021-06-14 15:43] LABS: Absolute Lymphocyte Count 1.57 X10^3/uL (0.83-4.51); Absolute Neutrophil Count 5.6 X10^3/uL (2.0-7.7); Basophil# 0.05 X10^3/uL; Basophil% 0.6 % (0-1); Eosinophil# 0.13 X10^3/uL; Eosinophils% 1.6 % (0-5); Hematocrit 40.6 % (37-47); Hemoglobin 13.1 g/dL (12.0-15.0); Lymphocyte # 1.57 X10^3/ul (0.83-4.51); Lymphocyte % 19.3 % (19-41); Mean Corp Hgb Conc 32.3 g/dL (32-36); Mean Corpuscular Hgb 28.6 pg (27.0-32.0); Mean Corpuscular Volume 88.6 fL (81-99); Mean Platelet Vol. 10.4 fl (6.2-12.0); Monocyte# 0.82 X10^3/uL; Monocyte% 10.1 % (0-10); NRBC Flagged by Analyzer 0 % (0-5); Neutrophil # 5.55 X10^3/uL (2.7-7.7); Platelet Count 279 K/mm3 (150-450); RBC Distribution Width CV 13.8 % (11.6-14.6); RBC Distribution Width SD 44.8 fl (35.1-43.9); Red Blood Count 4.58 M/mm3 (4.2-5.4); White Blood Count 8.2 K/mm3 (4.4-11.0)
[2021-06-14 15:56] LABS: Vitamin D,25 Hydroxy 73.4 ng/mL
[2021-06-14 16:11] LABS: ALB/GLOB Ratio 1.1 RATIO (0.9-2.4); AST(SGOT) 21 U/L (15-37); Alanine Aminotransfer ALT/SGPT 33 U/L (13-56); Albumin, Serum 3.8 g/dL (3.2-5.0); Alkaline Phosphatase 91 U/L (45-117); Anion Gap 8 (5-15); BUN 17 mg/dL (7-18); BUN/Creat Ratio 19.4 RATIO (10-20); Calcium,Total 8.5 mg/dL (8.5-10.1); Chloride 103 mmol/L (98-107); Cholesterol 183 mg/dL (200); Creatinine, Serum 0.88 mg/dL (0.55-1.02); EST Glomerular Filtration Rate 65 mL/min (>60); Est Glom Filt Rate - Afr Amer 79 mL/min (>60); Globulin 3.5 g/dL (2.2-4.2); Glucose 91 mg/dL (74-106); High Density Lipoprotein 73 mg/dL; Potassium 3.7 mmol/L (3.5-5.1); Protein, Total 7.3 g/dL (6.4-8.2); Sodium Level 135 mmol/L (136-145); Triglycerides 143 mg/dL; Very Low Density Lipoprotein 29 mg/dL (5-40)
== END ==
LOC: POLAB3 13:23
PROVIDERS: PCP Family Medicine Geriatric Medicine; Visit Provider Family Medicine Geriatric Medicine
DX: E55.9 Vitamin D deficiency, unspecified (principal); E78.5 Hyperlipidemia, unspecified; I10 Essential (primary) hypertension
CPT/HCPCS: 36415; 80053; 80061; 82306; 84443; 85025

== ENCOUNTER → 2021-06-17 11:54 | Outpatient (CLI) | payer MEDICARE, SELFPAY ==
[2021-04-12 07:28] VITALS: BMI 27.2
[2021-05-27 11:12] VITALS: BMI 27.4
[2021-06-17 13:03] LABS: Anion Gap 6 (5-15); BUN 17 mg/dL (7-18); BUN/Creat Ratio 21.4 RATIO (10-20); Calcium,Total 8.6 mg/dL (8.5-10.1); Chloride 105 mmol/L (98-107); Creatinine, Serum 0.79 mg/dL (0.55-1.02); EST Glomerular Filtration Rate 73 mL/min (>60); Est Glom Filt Rate - Afr Amer 88 mL/min (>60); Glucose 78 mg/dL (74-106); Sodium Level 138 mmol/L (136-145)
== END ==
PROVIDERS: PCP Family Medicine Geriatric Medicine; Visit Provider Physician Assistant Medical
DX: R06.02 Shortness of breath (principal)
CPT/HCPCS: 36415; 80048

== ENCOUNTER → 2021-06-29 12:37 | Outpatient (CLI) | payer MEDICARE, SELFPAY ==
[2021-04-12 07:28] VITALS: BMI 27.2
[2021-05-27 11:12] VITALS: BMI 27.4
--- NOTE | 2021-06-30 14:03 | PFT ---
INTRODUCTION: The patient is an 86-year-old female that presents for pulmonary function studies secondary to a diagnosis of shortness of breath. Respiratory therapy reported good patient effort. Bronchodilators were used during testing. INTERPRETATION: Forced expiration spirometry demonstrates the presence of a mild large airways obstructive ventilatory defect. There was no significant response to aerosolized bronchodilators. Spirograms are of good quality but do not plateau indicating slow emptying of the lungs. Body plethysmography was performed and reveals lung volumes to be within normal limits. Diffusing capacity by single breath CO is mildly reduced. IMPRESSION: Irreversible mild large airways obstructive ventilatory defect with preserved lung volumes and mild reduction in diffusing capacity.
== END ==
PROVIDERS: PCP Family Medicine Geriatric Medicine; Referring Provider Family Medicine Geriatric Medicine; Visit Provider Family Medicine Geriatric Medicine
DX: R06.02 Shortness of breath (principal)
CPT/HCPCS: 94060; 94726; 94729

== ENCOUNTER → 2021-08-09 12:28 | Outpatient (CLI) | payer MEDICARE, SELFPAY ==
[2021-04-12 07:28] VITALS: BMI 27.2
== END ==
PROVIDERS: PCP Family Medicine Geriatric Medicine; Referring Provider Family Medicine Geriatric Medicine; Visit Provider Family Medicine Geriatric Medicine
DX: R68.83 Chills (without fever) (principal)
CPT/HCPCS: 87635; 87804; 87807; C9803; U0005; U0003

== ENCOUNTER 2021-11-15 15:57 | Outpatient (CLI) | payer MEDICARE, SELFPAY ==
[2021-04-12 07:28] VITALS: BMI 27.2
[2021-11-15 17:20] LABS: Absolute Lymphocyte Count 1.09 X10^3/uL (0.83-4.51); Absolute Neutrophil Count 4.5 X10^3/uL (2.0-7.7); Basophil# 0.02 X10^3/uL; Basophil% 0.3 % (0-1); Eosinophil# 0.06 X10^3/uL; Hematocrit 41.1 % (37-47); Hemoglobin 13.1 g/dL (12.0-15.0); Lymphocyte # 1.09 X10^3/ul (0.83-4.51); Lymphocyte % 17.3 % (19-41); Mean Corp Hgb Conc 31.9 g/dL (32-36); Mean Corpuscular Volume 87.8 fL (81-99); Mean Platelet Vol. 10.1 fl (6.2-12.0); Monocyte# 0.61 X10^3/uL; Monocyte% 9.7 % (0-10); NRBC Flagged by Analyzer 0 % (0-5); Neutrophil # 4.49 X10^3/uL (2.7-7.7); Neutrophil % 71.4 % (47-70); Platelet Count 301 K/mm3 (150-450); RBC Distribution Width CV 13.8 % (11.6-14.6); RBC Distribution Width SD 44.1 fl (35.1-43.9); Red Blood Count 4.68 M/mm3 (4.2-5.4); White Blood Count 6.3 K/mm3 (4.4-11.0)
[2021-11-15 17:36] LABS: Anion Gap 8 (5-15); BUN 14 mg/dL (7-18); Calcium,Total 8.9 mg/dL (8.5-10.1); Chloride 105 mmol/L (98-107); Creatinine, Serum 0.93 mg/dL (0.55-1.02); EST Glomerular Filtration Rate 61 mL/min (>60); Est Glom Filt Rate - Afr Amer 73 mL/min (>60); Glucose 136 mg/dL (74-106); Potassium 3.1 mmol/L (3.5-5.1); Sodium Level 140 mmol/L (136-145)
--- NOTE | 2021-11-15 18:00 | RAD_ITS ---
EXAM: XR ABDOMEN, 2 VIEWS CLINICAL INDICATION: DIARRHEA TECHNIQUE: Frontal view of the abdomen/pelvis with upright view of the abdomen. This report was created using Pint Please report generation technology. COMPARISON: None. FINDINGS: LOWER THORAX: No acute pathology. INTRAPERITONEAL SPACE: No free air. GASTROINTESTINAL TRACT: There is liquid stool in the colon. This can suggest a gastroenteritis /diarrhea. Clinical correlation is recommended. Non-obstructive. No bowel or stomach distention. ORGANS: Unremarkable as visualized. No organomegaly. No abnormal calcifications. BONES/JOINTS: No acute pathology. SOFT TISSUES: No acute pathology. VASCULATURE: There are atherosclerotic vascular calcifications. RAD/Abd Inc Decub and/or Erect IMPRESSION: There is liquid stool in the colon. This can suggest a gastroenteritis /diarrhea. Clinical correlation is recommended. Electronically Signed: Flip Bains MD at 18:35 EST , Service support ,
== END 2021-11-15 23:59 | disposition short-term general hospital (02) ==
LOC: POLAB3 15:58
PROVIDERS: PCP Family Medicine Geriatric Medicine; Visit Provider Family Medicine Geriatric Medicine
DX: N39.0 Urinary tract infection, site not specified (principal); R53.1 Weakness; R19.7 Diarrhea, unspecified
CPT/HCPCS: 36415; 74019; 80048; 85025; 87077; 87086; 87088; 87186

== ENCOUNTER 2021-11-25 13:38 | Outpatient (CLI) | payer MEDICARE, SELFPAY ==
[2021-04-12 07:28] VITALS: BMI 27.2
[2021-11-25 17:32] LABS: Anion Gap 9 (5-15); BUN 27 mg/dL (7-18); BUN/Creat Ratio 26.7 RATIO (10-20); Calcium,Total 8.7 mg/dL (8.5-10.1); Chloride 103 mmol/L (98-107); Creatinine, Serum 1.01 mg/dL (0.55-1.02); EST Glomerular Filtration Rate 55 mL/min (>60); Est Glom Filt Rate - Afr Amer 67 mL/min (>60); Glucose 81 mg/dL (74-106); Sodium Level 134 mmol/L (136-145)
== END 2021-11-25 23:59 | disposition short-term general hospital (02) ==
LOC: POLAB3 13:38
PROVIDERS: PCP Family Medicine Geriatric Medicine; Visit Provider Family Medicine Geriatric Medicine
DX: E87.6 Hypokalemia (principal)
CPT/HCPCS: 36415; 80048

== ENCOUNTER 2021-12-15 12:56 | Outpatient (CLI) | payer MEDICARE, SELFPAY ==
[2021-04-12 07:28] VITALS: BMI 27.2
[2021-12-15 17:47] LABS: Vitamin D,25 Hydroxy 62.6 ng/mL
[2021-12-15 17:50] LABS: ALB/GLOB Ratio 0.8 RATIO (0.9-2.4); AST(SGOT) 16 U/L (15-37); Alanine Aminotransfer ALT/SGPT 28 U/L (13-56); Alkaline Phosphatase 98 U/L (45-117); Anion Gap 9 (5-15); BUN 16 mg/dL (7-18); BUN/Creat Ratio 19.6 RATIO (10-20); Calcium,Total 8.7 mg/dL (8.5-10.1); Chloride 104 mmol/L (98-107); Cholesterol 157 mg/dL (200); Creatinine, Serum 0.82 mg/dL (0.55-1.02); EST Glomerular Filtration Rate 71 mL/min (>60); Est Glom Filt Rate - Afr Amer 85 mL/min (>60); Glucose 88 mg/dL (74-106); High Density Lipoprotein 51 mg/dL; Sodium Level 137 mmol/L (136-145); Thyroid Stim Hormone (TSH) 1.93 uIU/mL (0.358-3.74); Triglycerides 140 mg/dL; Very Low Density Lipoprotein 28 mg/dL (5-40)
[2021-12-15 18:08] LABS: Absolute Lymphocyte Count 0.89 X10^3/uL (0.83-4.51); Absolute Neutrophil Count 5.5 X10^3/uL (2.0-7.7); Basophil# 0.04 X10^3/uL; Basophil% 0.5 % (0-1); Eosinophil# 0.25 X10^3/uL; Eosinophils% 3.2 % (0-5); Hematocrit 37.2 % (37-47); Hemoglobin 11.8 g/dL (12.0-15.0); Lymphocyte # 0.89 X10^3/ul (0.83-4.51); Lymphocyte % 11.5 % (19-41); Mean Corp Hgb Conc 31.7 g/dL (32-36); Mean Corpuscular Volume 88.4 fL (81-99); Monocyte# 1.02 X10^3/uL; Monocyte% 13.2 % (0-10); NRBC Flagged by Analyzer 0 % (0-5); Neutrophil % 71.2 % (47-70); Platelet Count 319 K/mm3 (150-450); RBC Distribution Width CV 14.5 % (11.6-14.6); RBC Distribution Width SD 46.5 fl (35.1-43.9); Red Blood Count 4.21 M/mm3 (4.2-5.4); White Blood Count 7.7 K/mm3 (4.4-11.0)
== END 2021-12-15 23:59 | disposition home or self-care (01) ==
LOC: POLAB3 12:56
PROVIDERS: PCP Family Medicine Geriatric Medicine; Visit Provider Family Medicine Geriatric Medicine
DX: E55.9 Vitamin D deficiency, unspecified (principal); E78.5 Hyperlipidemia, unspecified; I10 Essential (primary) hypertension
CPT/HCPCS: 36415; 80053; 80061; 82306; 84443; 85025

== ENCOUNTER 2022-02-21 13:47 | Outpatient (CLI) | payer MEDICARE, SELFPAY ==
[2021-04-12 07:28] VITALS: BMI 27.2
== END 2022-02-21 23:59 | disposition home or self-care (01) ==
LOC: PSN 13:49
PROVIDERS: PCP Family Medicine Geriatric Medicine; Referring Provider Family Medicine Geriatric Medicine; Visit Provider Family Medicine Geriatric Medicine
DX: R68.83 Chills (without fever) (principal); Z20.822 Contact with and (suspected) exposure to COVID-19
CPT/HCPCS: 87635; 87804; 87807; C9803; U0003; U0005

== ENCOUNTER → 2022-04-28 | Outpatient (CLI) | payer MEDICARE, SELFPAY ==
[2021-04-12 07:28] VITALS: BMI 27.2
[2022-04-28 17:26] LABS: BNP,B-Type NATRIURETIC PEPTIDE 241.3 pg/mL (0-100)
[2022-04-28 17:32] LABS: Anion Gap 8 (5-15); BUN 18 mg/dL (7-18); BUN/Creat Ratio 20.4 RATIO (10-20); Calcium,Total 9.3 mg/dL (8.5-10.1); Chloride 104 mmol/L (98-107); Creatinine, Serum 0.88 mg/dL (0.55-1.02); EST Glomerular Filtration Rate 64 mL/min (>60); Est Glom Filt Rate - Afr Amer 78 mL/min (>60); Glucose 98 mg/dL (74-106); Potassium 3.8 mmol/L (3.5-5.1); Sodium Level 137 mmol/L (136-145)
== END | disposition home or self-care (01) ==
LOC: LAB 16:23
PROVIDERS: PCP Family Medicine Geriatric Medicine; Visit Provider Nurse Practitioner Gerontology
DX: R06.02 Shortness of breath (principal)
CPT/HCPCS: 36415; 80048; 83880

== ENCOUNTER → 2022-05-23 | Outpatient (CLI) | payer MEDICARE, SELFPAY ==
[2021-04-12 07:28] VITALS: BMI 27.2
[2022-05-23 17:25] LABS: Absolute Neutrophil Count 6.2 X10^3/uL (2.0-7.7); Basophil# 0.04 X10^3/uL; Basophil% 0.5 % (0-1); Eosinophil# 0.05 X10^3/uL; Eosinophils% 0.6 % (0-5); Hematocrit 38.7 % (37-47); Hemoglobin 12.9 g/dL (12.0-15.0); Lymphocyte % 14.4 % (19-41); Mean Corp Hgb Conc 33.3 g/dL (32-36); Mean Corpuscular Hgb 29.1 pg (27.0-32.0); Mean Corpuscular Volume 87.2 fL (81-99); Mean Platelet Vol. 10.7 fl (6.2-12.0); Monocyte% 9.6 % (0-10); NRBC Flagged by Analyzer 0 % (0-5); Neutrophil # 6.18 X10^3/uL (2.7-7.7); Neutrophil % 74.4 % (47-70); Platelet Count 270 K/mm3 (150-450); RBC Distribution Width CV 14.6 % (11.6-14.6); RBC Distribution Width SD 46.6 fl (35.1-43.9); Red Blood Count 4.44 M/mm3 (4.2-5.4); White Blood Count 8.3 K/mm3 (4.4-11.0)
[2022-05-23 17:39] LABS: AST(SGOT) 23 U/L (15-37); Alanine Aminotransfer ALT/SGPT 34 U/L (13-56); Albumin, Serum 3.6 g/dL (3.2-5.0); Alkaline Phosphatase 80 U/L (45-117); Anion Gap 8 (5-15); BUN 11 mg/dL (7-18); BUN/Creat Ratio 12.4 RATIO (10-20); Chloride 105 mmol/L (98-107); Creatinine, Serum 0.89 mg/dL (0.55-1.02); EST Glomerular Filtration Rate 64 mL/min (>60); Est Glom Filt Rate - Afr Amer 77 mL/min (>60); Globulin 3.6 g/dL (2.2-4.2); Glucose 98 mg/dL (74-106); Potassium 2.8 mmol/L (3.5-5.1); Protein, Total 7.2 g/dL (6.4-8.2); Sodium Level 139 mmol/L (136-145)
== END | disposition home or self-care (01) ==
LOC: POLAB3 15:33
PROVIDERS: PCP Family Medicine Geriatric Medicine; Visit Provider Family Medicine Geriatric Medicine
DX: R19.7 Diarrhea, unspecified (principal); N39.0 Urinary tract infection, site not specified
CPT/HCPCS: 36415; 80053; 85025; 87077; 87086; 87088; 87186

== ENCOUNTER → 2022-05-24 | Outpatient (CLI) | payer MEDICARE, SELFPAY ==
[2021-04-12 07:28] VITALS: BMI 27.2
== END | disposition home or self-care (01) ==
LOC: LABSPEC 12:28
PROVIDERS: PCP Family Medicine Geriatric Medicine; Referring Provider Family Medicine Geriatric Medicine; Visit Provider Family Medicine Geriatric Medicine
DX: R19.7 Diarrhea, unspecified (principal)
CPT/HCPCS: 82274; 83630; 87177; 87209; 87493; 87506

== ENCOUNTER → 2022-06-15 | Outpatient (CLI) | payer MEDICARE, SELFPAY ==
[2021-04-12 07:28] VITALS: BMI 27.2
[2022-06-15 14:39] LABS: Absolute Lymphocyte Count 1.08 X10^3/uL (0.83-4.51); Absolute Neutrophil Count 7.2 X10^3/uL (2.0-7.7); Basophil# 0.03 X10^3/uL; Basophil% 0.3 % (0-1); Eosinophil# 0.06 X10^3/uL; Eosinophils% 0.6 % (0-5); Hematocrit 39.9 % (37-47); Lymphocyte # 1.08 X10^3/ul (0.83-4.51); Lymphocyte % 11.4 % (19-41); Mean Corp Hgb Conc 32.6 g/dL (32-36); Mean Corpuscular Hgb 29.3 pg (27.0-32.0); Mean Corpuscular Volume 89.9 fL (81-99); Mean Platelet Vol. 10.4 fl (6.2-12.0); Monocyte# 1.04 X10^3/uL; NRBC Flagged by Analyzer 0 % (0-5); Neutrophil % 76.2 % (47-70); Platelet Count 288 K/mm3 (150-450); RBC Distribution Width CV 14.5 % (11.6-14.6); RBC Distribution Width SD 47.4 fl (35.1-43.9); Red Blood Count 4.44 M/mm3 (4.2-5.4); White Blood Count 9.5 K/mm3 (4.4-11.0)
[2022-06-15 15:13] LABS: Vitamin D,25 Hydroxy 54.4 ng/mL
[2022-06-15 15:22] LABS: AST(SGOT) 25 U/L (15-37); Alanine Aminotransfer ALT/SGPT 37 U/L (13-56); Albumin, Serum 3.5 g/dL (3.2-5.0); Alkaline Phosphatase 84 U/L (45-117); Anion Gap 7 (5-15); BUN 13 mg/dL (7-18); BUN/Creat Ratio 15.2 RATIO (10-20); Calcium,Total 8.7 mg/dL (8.5-10.1); Chloride 105 mmol/L (98-107); Cholesterol 162 mg/dL (200); Creatinine, Serum 0.86 mg/dL (0.55-1.02); EST Glomerular Filtration Rate 67 mL/min (>60); Est Glom Filt Rate - Afr Amer 81 mL/min (>60); Globulin 3.6 g/dL (2.2-4.2); Glucose 88 mg/dL (74-106); High Density Lipoprotein 70 mg/dL; Potassium 3.1 mmol/L (3.5-5.1); Protein, Total 7.1 g/dL (6.4-8.2); Sodium Level 137 mmol/L (136-145); Thyroid Stim Hormone (TSH) 3.89 uIU/mL (0.358-3.74); Triglycerides 141 mg/dL; Very Low Density Lipoprotein 28 mg/dL (5-40)
== END | disposition home or self-care (01) ==
LOC: LAB 13:35
PROVIDERS: Nurse Practitioner Gerontology; PCP Family Medicine Geriatric Medicine; Referring Provider Family Medicine Geriatric Medicine; Visit Provider Family Medicine Geriatric Medicine
DX: E55.9 Vitamin D deficiency, unspecified (principal); E78.5 Hyperlipidemia, unspecified; I10 Essential (primary) hypertension
CPT/HCPCS: 36415; 80053; 80061; 82306; 84443; 85025

== ENCOUNTER → 2022-08-02 | Outpatient (CLI) | payer MEDICARE, SELFPAY ==
[2021-04-12 07:28] VITALS: BMI 27.2
[2022-08-02 17:14] LABS: Thyroid Stim Hormone (TSH) 2.11 uIU/mL (0.358-3.74)
== END | disposition home or self-care (01) ==
LOC: POLAB3 13:49
PROVIDERS: PCP Family Medicine Geriatric Medicine; Visit Provider Family Medicine Geriatric Medicine
DX: E03.9 Hypothyroidism, unspecified (principal)
CPT/HCPCS: 36415; 84443

== ENCOUNTER → 2022-08-18 | Outpatient (CLI) | payer MEDICARE, SELFPAY ==
[2021-04-12 07:28] VITALS: BMI 27.2
[2022-08-18 15:39] LABS: Absolute Lymphocyte Count 1.44 X10^3/uL (0.83-4.51); Absolute Neutrophil Count 5.3 X10^3/uL (2.0-7.7); Basophil# 0.06 X10^3/uL; Basophil% 0.8 % (0-1); Eosinophil# 0.11 X10^3/uL; Eosinophils% 1.4 % (0-5); Hematocrit 41.6 % (37-47); Hemoglobin 13.8 g/dL (12.0-15.0); Lymphocyte # 1.44 X10^3/ul (0.83-4.51); Lymphocyte % 18.6 % (19-41); Mean Corp Hgb Conc 33.2 g/dL (32-36); Mean Corpuscular Hgb 29.9 pg (27.0-32.0); Mean Corpuscular Volume 90.2 fL (81-99); Mean Platelet Vol. 10.7 fl (6.2-12.0); Monocyte# 0.85 X10^3/uL; NRBC Flagged by Analyzer 0 % (0-5); Neutrophil # 5.25 X10^3/uL (2.7-7.7); Neutrophil % 67.9 % (47-70); Platelet Count 292 K/mm3 (150-450); RBC Distribution Width CV 13.8 % (11.6-14.6); RBC Distribution Width SD 45.5 fl (35.1-43.9); Red Blood Count 4.61 M/mm3 (4.2-5.4); White Blood Count 7.7 K/mm3 (4.4-11.0)
[2022-08-18 15:57] LABS: Erythrocyte Sedimentation Rate 11 mm/hr (0-30)
[2022-08-18 16:27] LABS: AST(SGOT) 19 U/L (15-37); Alanine Aminotransfer ALT/SGPT 26 U/L (13-56); Albumin, Serum 3.9 g/dL (3.2-5.0); Alkaline Phosphatase 92 U/L (45-117); Anion Gap 9 (5-15); BUN 15 mg/dL (7-18); BUN/Creat Ratio 16.6 RATIO (10-20); CRP 3.48 mg/L (0.0-3.0); Calcium,Total 9.4 mg/dL (8.5-10.1); Chloride 104 mmol/L (98-107); EST Glomerular Filtration Rate 63 mL/min (>60); Est Glom Filt Rate - Afr Amer 76 mL/min (>60); Globulin 3.8 g/dL (2.2-4.2); Glucose 90 mg/dL (74-106); LDH 227 U/L (84-246); Protein, Total 7.7 g/dL (6.4-8.2); Sodium Level 138 mmol/L (136-145)
[2022-08-22 16:09] LABS: Endomysial Antibody IgA Negative (Negative)
[2022-08-22 18:43] LABS: Immunoglobulin A 168 mg/dL (64-422); t-Transglutaminase IgA <2 U/mL (0-3)
[2022-08-23 14:29] LABS: Anti-Centromere B Ab <0.2 AI (0.0-0.9); Anti-Chromatin <0.2 AI (0.0-0.9); Anti-Jo <0.2 AI (0.0-0.9); Anti-Scleroderma-70 AB <0.2 AI (0.0-0.9); RNP Ab <0.2 AI (0.0-0.9); SJOGREN'S Anti-SS-A test < 0.2 AI (0.0-0.9); SJOGREN'S Anti-SS-B test < 0.2 AI (0.0-0.9); Smith Ab <0.2 AI (0.0-0.9)
[2022-08-23 16:09] LABS: Anti-dsDNA Ab <1 IU/mL (0-9)
[2022-08-29 04:06] LABS: Alpha-1-Globulins 0.3 g/dL (0.0-0.4); Cytoplasmic Ab (C-ANCA) <1:20 titer (Neg:<1:20); Gamma Globulin 1.1 g/dL (0.4-1.8); Immunoglobulin A 170 mg/dL (64-422); Immunoglobulin E 65 IU/mL (6-495); Immunoglobulin G 990 mg/dL (586-1602); Immunoglobulin M 169 mg/dL (26-217); PROEL- TOTAL PROTEIN 7.4 g/dL (6.0-8.5)
[2022-08-29 16:55] LABS: Perinuclear Ab (P-ANCA) <1:20 titer (Neg:<1:20)
== END | disposition home or self-care (01) ==
PROVIDERS: PCP Family Medicine Geriatric Medicine; Referring Provider Internal Medicine Gastroenterology; Visit Provider Internal Medicine Gastroenterology
DX: R19.7 Diarrhea, unspecified (principal)
CPT/HCPCS: 36415; 80053; 82784; 82785; 83516; 83615; 84165; 85025; 85652; 86140; 86225; 86235; 86255; 86256; 86334

== ENCOUNTER → 2022-08-22 | Outpatient (CLI) | payer MEDICARE, SELFPAY ==
[2021-04-12 07:28] VITALS: BMI 27.2
[2022-08-26 12:28] LABS: Calprotectin, Stool 126 ug/g (0-120)
== END | disposition home or self-care (01) ==
LOC: LAB 13:50
PROVIDERS: PCP Family Medicine Geriatric Medicine; Referring Provider Internal Medicine Gastroenterology; Visit Provider Internal Medicine Gastroenterology
DX: R19.7 Diarrhea, unspecified (principal)
CPT/HCPCS: 83630; 83993

== ENCOUNTER → 2022-12-19 | Outpatient (CLI) | payer MEDICARE, SELFPAY ==
[2021-04-12 07:28] VITALS: BMI 27.2
[2022-12-19 17:03] LABS: Absolute Lymphocyte Count 1.14 X10^3/uL (0.83-4.51); Absolute Neutrophil Count 5.2 X10^3/uL (2.0-7.7); Basophil# 0.05 X10^3/uL; Basophil% 0.7 % (0-1); Eosinophil# 0.09 X10^3/uL; Eosinophils% 1.2 % (0-5); Hematocrit 40.2 % (37-47); Hemoglobin 12.8 g/dL (12.0-15.0); Lymphocyte # 1.14 X10^3/ul (0.83-4.51); Lymphocyte % 15.2 % (19-41); Mean Corp Hgb Conc 31.8 g/dL (32-36); Mean Corpuscular Hgb 28.4 pg (27.0-32.0); Mean Corpuscular Volume 89.1 fL (81-99); Mean Platelet Vol. 10.7 fl (6.2-12.0); Monocyte% 13.3 % (0-10); NRBC Flagged by Analyzer 0 % (0-5); Neutrophil % 69.3 % (47-70); Platelet Count 291 K/mm3 (150-450); RBC Distribution Width CV 14.5 % (11.6-14.6); RBC Distribution Width SD 47.1 fl (35.1-43.9); Red Blood Count 4.51 M/mm3 (4.2-5.4); White Blood Count 7.5 K/mm3 (4.4-11.0)
[2022-12-19 17:27] LABS: Vitamin D,25 Hydroxy 60.6 ng/mL
[2022-12-19 17:28] LABS: ALB/GLOB Ratio 0.8 RATIO (0.9-2.4); AST(SGOT) 20 U/L (15-37); Alanine Aminotransfer ALT/SGPT 26 U/L (13-56); Albumin, Serum 3.3 g/dL (3.2-5.0); Alkaline Phosphatase 91 U/L (45-117); Anion Gap 9 (5-15); BUN 15 mg/dL (7-18); BUN/Creat Ratio 18.5 RATIO (10-20); Calcium,Total 8.7 mg/dL (8.5-10.1); Chloride 103 mmol/L (98-107); Cholesterol 155 mg/dL (200); Creatinine, Serum 0.81 mg/dL (0.55-1.02); EST Glomerular Filtration Rate 71 mL/min (>60); Est Glom Filt Rate - Afr Amer 86 mL/min (>60); Globulin 3.9 g/dL (2.2-4.2); Glucose 91 mg/dL (74-106); High Density Lipoprotein 71 mg/dL; Potassium 3.9 mmol/L (3.5-5.1); Protein, Total 7.2 g/dL (6.4-8.2); Sodium Level 137 mmol/L (136-145); Thyroid Stim Hormone (TSH) 1.38 uIU/mL (0.358-3.74); Triglycerides 108 mg/dL; Very Low Density Lipoprotein 22 mg/dL (5-40)
== END | disposition home or self-care (01) ==
LOC: POLAB3 13:10
PROVIDERS: PCP Family Medicine Geriatric Medicine; Visit Provider Family Medicine Geriatric Medicine
DX: E55.9 Vitamin D deficiency, unspecified (principal); E78.5 Hyperlipidemia, unspecified; I10 Essential (primary) hypertension
CPT/HCPCS: 36415; 80053; 80061; 82306; 84443; 85025

== ENCOUNTER → 2022-12-20 | Outpatient (CLI) | payer MEDICARE, SELFPAY ==
[2021-04-12 07:28] VITALS: BMI 27.2
== END | disposition home or self-care (01) ==
LOC: PSN 13:43
PROVIDERS: PCP Family Medicine Geriatric Medicine; Referring Provider Family Medicine Geriatric Medicine; Visit Provider Family Medicine Geriatric Medicine
DX: R68.83 Chills (without fever) (principal)
CPT/HCPCS: 87635; 87804; 87807; C9803; U0003; U0005

== ENCOUNTER → 2023-01-27 | Outpatient (CLI) | payer MEDICARE, SELFPAY ==
[2021-04-12 07:28] VITALS: BMI 27.2
== END | disposition home or self-care (01) ==
LOC: PSN 12:24
PROVIDERS: PCP Family Medicine Geriatric Medicine; Visit Provider Family Medicine Geriatric Medicine
DX: R68.83 Chills (without fever) (principal)
CPT/HCPCS: 87635; 87804; 87807; C9803; U0003; U0005

== ENCOUNTER → 2023-04-24 | Outpatient (CLI) | payer MEDICARE, SELFPAY ==
[2021-04-12 07:28] VITALS: BMI 27.2
[2023-04-24 14:32] LABS: Absolute Lymphocyte Count 1.11 X10^3/uL (0.83-4.51); Absolute Neutrophil Count 4.9 X10^3/uL (2.0-7.7); Basophil# 0.05 X10^3/uL; Basophil% 0.7 % (0-1); Eosinophil# 0.15 X10^3/uL; Eosinophils% 2.1 % (0-5); Hematocrit 40.1 % (37-47); Hemoglobin 12.5 g/dL (12.0-15.0); Lymphocyte # 1.11 X10^3/ul (0.83-4.51); Lymphocyte % 15.6 % (19-41); Mean Corp Hgb Conc 31.2 g/dL (32-36); Mean Corpuscular Volume 89.9 fL (81-99); Mean Platelet Vol. 10.2 fl (6.2-12.0); Monocyte# 0.87 X10^3/uL; Monocyte% 12.2 % (0-10); NRBC Flagged by Analyzer 0 % (0-5); Neutrophil # 4.93 X10^3/uL (2.7-7.7); Neutrophil % 69.1 % (47-70); Platelet Count 272 K/mm3 (150-450); RBC Distribution Width CV 15.1 % (11.6-14.6); RBC Distribution Width SD 49.1 fl (35.1-43.9); Red Blood Count 4.46 M/mm3 (4.2-5.4); White Blood Count 7.1 K/mm3 (4.4-11.0)
[2023-04-24 15:22] LABS: ALB/GLOB Ratio 0.9 RATIO (0.9-2.4); AST(SGOT) 15 U/L (15-37); Alanine Aminotransfer ALT/SGPT 19 U/L (13-56); Albumin, Serum 3.2 g/dL (3.2-5.0); Alkaline Phosphatase 98 U/L (45-117); Anion Gap 6 (5-15); BUN 13 mg/dL (7-18); BUN/Creat Ratio 17.6 RATIO (10-20); CPK Total, Creatine Kinase 84 U/L (26-192); Calcium,Total 8.9 mg/dL (8.5-10.1); Chloride 107 mmol/L (98-107); Creatinine, Serum 0.74 mg/dL (0.55-1.02); EST Glomerular Filtration Rate 79 mL/min (>60); Est Glom Filt Rate - Afr Amer 95 mL/min (>60); Globulin 3.7 g/dL (2.2-4.2); Glucose 89 mg/dL (74-106); Potassium 4.1 mmol/L (3.5-5.1); Protein, Total 6.9 g/dL (6.4-8.2); Sodium Level 137 mmol/L (136-145); Thyroid Stim Hormone (TSH) 2.65 uIU/mL (0.358-3.74); Troponin-I HS 8 pg/mL (3.0-54.0)
[2023-04-24 15:42] LABS: BNP,B-Type NATRIURETIC PEPTIDE 330.7 pg/mL (0-100)
[2023-04-26 03:07] LABS: Myoglobin, Serum 48 ng/mL (25-58)
== END | disposition home or self-care (01) ==
LOC: LAB 13:44
PROVIDERS: PCP Family Medicine Geriatric Medicine; Referring Provider Family Medicine Geriatric Medicine; Visit Provider Family Medicine Geriatric Medicine
DX: R06.02 Shortness of breath (principal); I10 Essential (primary) hypertension; N39.0 Urinary tract infection, site not specified
CPT/HCPCS: 36415; 80053; 82550; 83874; 83880; 84443; 84484; 85025; 87086; 87088

== ENCOUNTER 2023-05-19 14:30 | Outpatient (RCR) | payer MEDICARE, SELFPAY ==
[2021-04-12 07:28] VITALS: BMI 27.2
--- NOTE | 2023-04-20 13:53 | HP.PTEVAL ---
Patient's Visit Information SHANNAN CONWAY is a 87 year old F referred to Physical Therapy by Dr. Brian Mckee MD with a diagnosis of Gait difficulty, R26.9. Date of Evaluation: 04/20/23 Physical Therapist: Jose Pope - Visit Plan Frequency: 2x /Week Duration: 4 Weeks Plan: Continue with improving LE strength and balance exercises. - Subjective Pt. is a 87 y.o. female who has noticed that her balance has gotten worse and currently ambulates with a SPC. Pt. has been using a cane for the last four to five months. She denies any falls in the last six months. Pt. has numbness and tingling in both of her feet which is worse at night. She has difficulty with walking, walking on uneven ground, ascending/descending stairs, squatting, getting up from a chair, and housework. Pt. is retired and worked at [employer]. Her goal with physical therapy is to be able to walk better. She has had physical therapy in the past but is not sure what it was for. She denies any pain. 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 Pt. lives alone in a two story home with flight of stairs to enter and handrail on the left. Her hobbies include crossword puzzles and watching sports. - Objective Posture- Good posture in standing. Left LE strength flexion 5/5, abduction 4+/5, adduction 5/5, extension 4+/5, knee flexion 5/5, knee extension 4+/5, ankle DF 5/5, PF 5/5. Right LE strength flexion 5/5, abduction 4+/5, adduction 5/5, extension 4+/5, knee flexion 5/5, knee extension 4+/5, ankle DF 5/5, PF 5/5. Sensation- WNL bilateral lower extremities. Tandem stance right- unable, left- unable. SLS right- unable, left- unable. 30 sec sit to stand- x 3 with no arm assist. Gait- Pt. ambulates with SPC. - Balance/Special Test Scores Lower Extremity Functional Score: 33 - Goals Goal 1:: Pt. will report no falls. Goal Time Frame: 4-6 Weeks Goal 2:: Pt. will be able to complete at least 6 sit to stands in 30 secs with no arm assist in order to improve mobility. Goal Time Frame: 4-6 Weeks Goal 3:: Pt. will be able to ambulate at least 10 minutes with SPC and no rest break in order to improve endurance. Goal Time Frame: 4-6 Weeks Goal 4:: Pt. will improve tandem stance > 10 secs bilaterally in order to improve stability and balance. Goal Time Frame: 4-6 Weeks Goal 5:: Pt. will improve LEFS score < 50% impairment in order to improve mobility. Goal Time Frame: 4-6 Weeks - Rehabilitation Potential Physical Therapy Diagnosis: Decreased bilateral LE strength and balance. Pt. presents at this time with generalized LE weakness. Rehabilitation Potential: Good - Anticipated Interventions Patient/Client Instruction: Educate patient on: Condition, Plan of Care, Benefits of Fitness Program For the Purpose of:: To improve ability to perform ADL's, To improve performance and independence with ADL's, To improve balance, To improve safety with gait, To assume or resume ADL's, To improve tolerance to ADL's Therapeutic Exercise to Include: Strength training, Endurance training, Balance training, Gait and locomotor training Comment: Continue with improving LE strength and balance. For the Purpose of:: To improve ability to perform ADL's, To improve performance and independence with ADL's, To improve gait and locomotor functions, To improve endurance, To improve balance, To improve safety, To improve tolerance to ADL's Functional Training to Include: ADL Training, Gait training For the Purpose of:: To improve ability to perform ADL's, To improve performance and independence with ADL's, To improve endurance, To improve balance, To improve safety with gait, To assume or resume ADL's, To improve tolerance to ADL's Assistive Devices: Cane, Wheeled walker For the Purpose of:: To improve endurance, To improve balance, To improve safety with gait Thank you for the opportunity to evaluate your patient. For Medicare and Medicare HMO plans, please review the plan of care and approve it. It will need to be FAXED BACK to us at [phone] for Medicare purposes. For Medicare only, by signing this I certify the plan of care. Please let me know if there are questions or concerns regarding this plan of care. Physician Signature: Date:
--- NOTE | 2023-07-07 08:37 | HP.PT.NRP ---
Patient Information Patient Information: SHANNAN CONWAY was seen in my office for initial evaluation on 04/20/23. The following Plan of Care was established for this patient: POC Established Initial Frequency: 2x /Week Initial Duration: 4 Weeks Anticipated Interventions Patient/Client Instruction: Educate patient on: Condition, Plan of Care and Benefits of Fitness Program For the Purpose of:: To improve ability to perform ADL's, To improve performance and independence with ADL's, To improve balance, To improve safety with gait, To assume or resume ADL's and To improve tolerance to ADL's Therapeutic Exercise to Include: Strength training, Endurance training, Balance training and Gait and locomotor training For the Purpose of:: To improve ability to perform ADL's, To improve performance and independence with ADL's, To improve gait and locomotor functions, To improve endurance, To improve balance, To improve safety and To improve tolerance to ADL's Functional Training to Include: ADL Training and Gait training For the Purpose of:: To improve ability to perform ADL's, To improve performance and independence with ADL's, To improve endurance, To improve balance, To improve safety with gait, To assume or resume ADL's and To improve tolerance to ADL's Assistive Devices: Cane and Wheeled walker For the Purpose of:: To improve endurance, To improve balance and To improve safety with gait Last Seen Last Seen: This patient was last seen in our office . Pertinent comments regarding their Physical therapy will appear below: Patient was seen for PT for gait difficulty for 3 visits thus d/c At this point I will be discontinuing this patient from physical therapy. I would be happy to see this patient again in the future if found appropriate by the physician. Thank you! Jesus Myles, PT, Cert MDT, OCS Balance/Gait/Functional tests Balance/Special Test Scores Lower Extremity Functional Score: 33
== END 2023-05-19 19:00 | disposition home or self-care (01) ==
LOC: PT 14:30
PROVIDERS: PCP Family Medicine Geriatric Medicine; Referring Provider Family Medicine Geriatric Medicine; Visit Provider Family Medicine Geriatric Medicine
DX: R26.9 Unspecified abnormalities of gait and mobility (principal)
CPT/HCPCS: 97110; 97161

== ENCOUNTER → 2023-06-01 | Outpatient (CLI) | payer MEDICARE, SELFPAY ==
[2021-04-12 07:28] VITALS: BMI 27.2
--- NOTE | 2023-06-01 09:16 | MRI_ITS ---
MR Enterography Abdomen/Pelvis WO/W Contrast 06/01/2023 10:34 AM COMPARISON: None available. CLINICAL HISTORY: R19.7 - Diarrhea, unspecified TECHNIQUE: Following oral administration of enteric contrast and administration of glucagon, multiplanar T1 and T2 weighted images along with dynamic post-gadolinium images were obtained through the abdomen and pelvis before and after administration of 14 cc of IV contrast. FINDINGS: GI Tract: There is slight under distention of the proximal small bowel. There is a short segment of proximal sigmoid colon demonstrating asymmetric wall thickening with heterogeneous mucosal hyperenhancement. There are several scattered diverticula. No stricture, fistula, or obstruction. No drainable fluid collections. Liver: Unremarkable Gallbladder: Unremarkable Spleen: Unremarkable Pancreas: Unremarkable Adrenal Glands: Unremarkable Kidneys: Unremarkable Reproductive: Unremarkable Bladder: Unremarkable Lymphadenopathy: Absent Ascites: Absent Bones: No suspicious lesions. Degenerative changes. MRI/Enterography Abd/Pel IMPRESSION: Slightly limited examination due to under distention of the proximal small bowel. Despite limitations: Short segment of proximal sigmoid colon demonstrating asymmetric wall thickening with heterogeneous mucosal hyperenhancement. This most likely represents acute diverticulitis, however, cannot rule out underlying malignancy. Recommend colonoscopy after acute inflammation has resolved. Electronically Signed: Jerry Ford MD at 17:04 EDT ,
[2023-06-01 09:56] VITALS: BP 180/93; PULSE 57; RESP 18; O2SAT 96; BMI 27.4
[2023-06-01] MEDS: Glucagon 1 MG/ML Syringe IV (10:57)
[2023-06-01 11:17] VITALS: BP 190/94; PULSE 70; RESP 16; O2SAT 98
== END | disposition home or self-care (01) ==
PROVIDERS: PCP Family Medicine Geriatric Medicine; Referring Provider Internal Medicine Gastroenterology; Visit Provider Internal Medicine Gastroenterology
DX: R19.7 Diarrhea, unspecified (principal)
CPT/HCPCS: 74183; 96374; A9575; A4216; J1610

== ENCOUNTER → 2023-06-15 | Outpatient (CLI) | payer MEDICARE, SELFPAY ==
[2021-04-12 07:28] VITALS: BMI 27.2
[2023-06-15 17:02] LABS: Absolute Lymphocyte Count 0.66 X10^3/uL (0.83-4.51); Absolute Neutrophil Count 10.6 X10^3/uL (2.0-7.7); Basophil# 0.03 X10^3/uL; Basophil% 0.2 % (0-1); Eosinophil# 0.02 X10^3/uL; Eosinophils% 0.2 % (0-5); Hematocrit 45.6 % (37-47); Hemoglobin 14.1 g/dL (12.0-15.0); Lymphocyte # 0.66 X10^3/ul (0.83-4.51); Lymphocyte % 5.4 % (19-41); Mean Corp Hgb Conc 30.9 g/dL (32-36); Mean Corpuscular Hgb 27.5 pg (27.0-32.0); Mean Corpuscular Volume 88.9 fL (81-99); Mean Platelet Vol. 11.3 fl (6.2-12.0); Monocyte# 0.92 X10^3/uL; Monocyte% 7.5 % (0-10); NRBC Flagged by Analyzer 0 % (0-5); Neutrophil # 10.62 X10^3/uL (2.7-7.7); Neutrophil % 86.3 % (47-70); Platelet Count 294 K/mm3 (150-450); RBC Distribution Width CV 15.4 % (11.6-14.6); RBC Distribution Width SD 49.4 fl (35.1-43.9); Red Blood Count 5.13 M/mm3 (4.2-5.4); White Blood Count 12.3 K/mm3 (4.4-11.0)
[2023-06-15 17:15] LABS: Vitamin D,25 Hydroxy 69.2 ng/mL
[2023-06-15 17:21] LABS: AST(SGOT) 19 U/L (15-37); Alanine Aminotransfer ALT/SGPT 34 U/L (13-56); Albumin, Serum 3.7 g/dL (3.2-5.0); Alkaline Phosphatase 91 U/L (45-117); Anion Gap 10 (5-15); BUN 15 mg/dL (7-18); BUN/Creat Ratio 16.3 RATIO (10-20); Calcium,Total 8.6 mg/dL (8.5-10.1); Chloride 104 mmol/L (98-107); Cholesterol 167 mg/dL (200); Creatinine, Serum 0.92 mg/dL (0.55-1.02); EST Glomerular Filtration Rate 61 mL/min (>60); Est Glom Filt Rate - Afr Amer 74 mL/min (>60); Globulin 3.8 g/dL (2.2-4.2); Glucose 115 mg/dL (74-106); High Density Lipoprotein 81 mg/dL; Potassium 4.2 mmol/L (3.5-5.1); Protein, Total 7.5 g/dL (6.4-8.2); Sodium Level 135 mmol/L (136-145); Thyroid Stim Hormone (TSH) 3.28 uIU/mL (0.358-3.74); Triglycerides 134 mg/dL; Very Low Density Lipoprotein 27 mg/dL (5-40)
== END | disposition home or self-care (01) ==
PROVIDERS: PCP Family Medicine Geriatric Medicine; Visit Provider Family Medicine Geriatric Medicine
DX: I10 Essential (primary) hypertension (principal); E55.9 Vitamin D deficiency, unspecified
CPT/HCPCS: 36415; 80053; 80061; 82306; 84443; 85025

== ENCOUNTER → 2023-11-08 | Outpatient (CLI) | payer MEDICARE, SELFPAY ==
[2021-04-12 07:28] VITALS: BMI 27.2
--- NOTE | 2023-11-08 14:39 | RAD_ITS ---
STUDY: X-RAY - UNILATERAL RIBS ( LEFT ) WITH CHEST REASON FOR EXAM: Female, 88 years old. RIB PAIN TECHNIQUE - RIBS: 2 view(s) of the ribs. TECHNIQUE - CHEST: Single AP portable view of the chest. COMPARISON: None. FINDINGS - RIBS: Possible fracture involving the anterior arch of the left ninth rib and eighth rib. FINDINGS - CHEST: The lungs are well expanded with minimal right basilar atelectasis. There is questionable mild scarring versus atelectasis involving the left midlung field. Cannot exclude left mid lower lung pleural plaque. There is no pleural effusion or pneumothorax. There is mild left apical pleural thickening. Heart is of normal size with evidence of previous CABG repair and midline sternotomy wires. Normal mediastinum and simon. Normal visualized pulmonary arteries. Normal visualized aortic arch and descending thoracic aorta. Normal visualized thoracic spine. There is no demonstrated abnormality of the visualized soft tissue structures of the upper abdomen. RAD/Ribs Uni Min 3V w/PA Chest IMPRESSION: RIBS: Possible fractures involving the anterior arches of the left eighth and ninth ribs. CHEST: Minimal right basilar and left midlung scarring with left midlung plaque not excluded. Electronically Signed: Whitney Bullock MD at 22:09 EST ,
--- OUTSIDE RECORDS SUMMARY | 2023-11-08 15:11 | XMS RPT_ITS | CCD ---
Author Name Unknown Address [address] [place] [address] Organization [facility] Care Team Providers Care Shell Machine Operator Name Role Phone Nithya LUKE, Ela Ko Unavailable Unavailable PRISCILLA Gunter, Heather Reynolds Unavailable STUART RONDON Unavailable Unavail able PRISCILLA Gunter Michelle M Unavailable Allergies Allergy Classification Reported Allergen(s) Allergy Type Date of Onset Reaction(s) Facility (5 sources) lisinopril; Translations: [LISINOPRIL] drug allergy 5 ANGIOEDEMA, AOF [facility] Work Phone: (4 sources) Sulfonamides (Antibiotic) drug allergy 2 [facility] Work Phone: (1 source) Sulfonamides (Antibiotic); Translations: [SULFA (SULFONAMIDE ANTIBIOTICS)] Propensity to adverse reactions to drug (disorder) 6 [facility] Repository Medications Completed/Discontinued Medications Medication Drug Class(es) Dates Sig (Normalized) Sig (Original) alendronic acid 70 mg oral tablet (8 sources) Bisphosphonate End: 12-24-2014 ALENDRONATE SODIUM 70 MG TABS once weekly ALENDRONATE SODIUM [id number] Laurence Rodriguez RN ALOE VERA (4 sources) Start: 12-26-2014 ALOE VERA GEL daily ALOE VERA [id number] Ivan Rowland MD amLODIPine 5 mg oral tablet (4 sources) Dihydropyridine Calcium Channel Luz take 1 tablet by mouth once daily AMLODIPINE BESYLATE 5 MG TABS One tablet by mouth daily AMLODIPINE BESYLATE [id number] Danielito Duncan DO aspirin 325 mg oral tablet (4 sources) Nonsteroidal Anti-inflammatory Drug take 1 tablet by mouth once daily ECOTRIN 325 MG TBEC One tablet by mouth daily ASPIRIN [id number] Danielito Duncan DO Problems Active Problems Problem Classification Problem Date Documented Date Episodic/Chronic Complication of device; implant or graft (4 sources) Atherosclerosis of coronary artery bypass graft(s) without angina pectoris; Translations: [Atherosclerosis of coronary artery bypass graft(s) without angina pectoris] Onset: 05-12-2016 05-12-2016 Chronic Coronary atherosclerosis and other heart disease (12 sources) Atherosclerotic heart disease of 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; Translations: [(Aorto)coronary bypass of three coronary arteries] Onset: 12-26-2014 12-26-2014 Past or Other Problems Problem Classification Problem Date Documented Da te Episodic/Chronic Cardiac dysrhythmias (4 sources) Palpitations; Translations: [Palpitations] Onset: 12-26-2014 12-26-2014 Episodic Conditions associated with dizziness or vertigo (12 sources) Dizziness and giddiness; Translations: [Other peripheral vertigo, unspecified ear] Onset: 12-24-2014 Resolved: 11-04-2016 12-24-2014 Episodic Coronary atherosclerosis and other heart disease (8 sources) Presence of aortocoronary bypass graft; Translations: [Presence of aortocoronary bypass graft] Onset: 12-26-2014 Resolved: 11-04-2016 11-04-2016 Episodic Neoplasms of unspecified nature or uncertain behavior (4 sources) Neoplasm of skin; Translations: [Neoplasm of uncertain behavior of skin] Onset: 02-23-2012 02-23-2012 Episodic Other connective tissue disease (4 sources) Cramp in lower limb; Translations: [Cramp and spasm] Onset: 05-29-2017 05-29-2017 Episodic Other nutritional; endocrine; and metabolic disorders (4 sources) Body mass index (BMI) 26.0-26.9, adult; Translations: [Body mass index (BMI) 26.0-26.9, adult] Onset: 05-12-2015 05-12-2015 Episodic Residual codes; unclassified (2 sources) FH: Raised blood lipids; Translations: [Family history of other endocrine, nutritional and metabolic diseases] 05-12-2015 Episodic Residual codes; unclassified (2 sources) FH: Hypertension; Translations: [Family history of ischemic heart disease and other diseases of the circulatory system] 12-26-2014 Episodic Unclassified (8 sources) Edema; Translations: [FH: Raised blood lipids] Onset: 12-24-2014 12-24-2014 Episodic Unclassified (1 source) Encounter for screening mammogram for malignant neoplasm of breast; Translations: [Encounter for screening mammogram for malignant neoplasm of breast] Onset: 08-28-2017 Episodic Viral infection (4 sources) Herpes zoster; Translations: [Zoster without complications] 01-24-2012 Episodic Results Test Name Value Interpretation Reference Range Facil ity Vital Signs Date Time Vital Sign Value Performing Clinician Arturo davies 05-29-2017 12:44-0400 BMI (Body Mass Index) 26.06 kg/m2 PRISCILLA [facility] Work Phone: 05-29-2017 12:44-0400 BP Diastolic 80 mm[Hg] PRISCILLA [facility] Work Phone: 05-29-2017 12:44-0400 BP Systolic 140 mm[Hg] PRISCILLA [facility] Work Phone: 05-29-2017 12:44-0400 Height 157.48 cm PRISCILLA [facility] Work Phone: 05-29-2017 12:44-0400 Pulse (Heart Rate) 74 /min PRISCILLA [facility] Work Phone: 05-29-2017 12:44-0400 Respiratory Rate 16 /min PRISCILLA [facility] Work Phone: 05-29-2017 12:44-0400 Weight 64.64 kg Heather Gunter PA-C [facility] Work Phone: 11-24-2016 14:56-0500 BMI (Body Mass Index) 26.79 kg/m2 Heather Gunter PA-C [facility] Work Phone: 11-24-2016 14:56-0500 BP Diastolic 64 mm[Hg] Heather Gunter PA-C [facility] Work Phone: 11-24-2016 14:56-0500 BP Systolic 120 mm[Hg] Heather Gunter PA-C [facility] Work Phone: 11-24-2016 14:56-0500 BSA (Body Surface Area) 1.68 m2 Heather Gunter PA-C [facility] Work Phone: 11-24-2016 14:56-0500 Pulse (Heart Rate) 76 /min Heather Gunter PA-C [facility] Work Phone: 11-24-2016 14:56-0500 Respiratory Rate 20 /min Heather Gunter PA-C [facility] Work Phone: 11-24-2016 14:56-0500 Weight 66.45 kg Heather Gunter PA-C [facility] Work Phone: 12-26-2014 16:03-0500 Heart rate 74 /min Heather Gunter PA-C [facility] Work Phone: 12-26-2014 15:06-0500 Height 157.48 cm Heather Gunter PA-C [facility] Work Phone: 01-23-2012 10:59-0400 Body Temperature 98.2 [degF] Heather Gunter PA-C [facility] Work Phone: Encounters Encounter Date Encounter Type Care Provider Facility Start: 08-28-2017 End: 08-29-2017 Ambulatory STUART CARDENAS [facility] Procedures Date Procedure Procedure Detail Performing Clinician Start: 05-29-2017 End: 05-29-2017 *BMP Heather Gunter PA-C Work Phone: Start: 05-29-2017 End: 05-29-2017 CASHIER ASSISTANT Heather Gunter PA-C Work Phone: Start: 05-29-2017 End: 05-29-2017 Follow Up Appt 6 months Heather gregorio PA-C Work Phone: Start: 05-29-2017 End: 05-29-2017 Magnesium Heather Gunter PA-C Work Phone: Start: 05-29-2017 End: 06-12-2017 Nuclear stress test -exercise Heather Gunter PA-C Work Phone: Start: 11-24-2016 End: 11-24-2016 Follow Up Appt 6 months Gail Grimm Start: 11-24-2016 End: 11-24-2016 JUAN PABLO Rowland MD Start: 06-21-2016 End: 06-21-2016 Follow Up BP Check Heather Gunter PA-C Work Phone: Start: 05-19-2016 End: 05-19-2016 Dietary management education, guidance, and counseling Heather Gunter PA-C Start: 05-19-2016 End: 05-19-2016 MARINA Gunter PA-C Work Phone: Start: 05-19-2016 End: 05-19-2016 Follow Up Appt 6 months Heather gregorio PA-C Work Phone: Start: 05-19-2016 End: 05-19-2016 Follow Up BP Check Heather Gunter PA-C Work Phone: Start: 11-17-2015 End: 11-17-2015 Follow Up Appt 6 months Gail Grimm Start: 11-17-2015 End: 11-17-2015 MMGail Rowland MD Start: 05-12-2015 End: 05-12-2015 CASHIER ASSISTANT Heather Gunter PA-C Work Phone: Start: 05-12-2015 End: 05-13-2015 Documentation of current medications Heather Gunter PA-C Work Phone: Start: 05-12-2015 End: 05-12-2015 Follow Up Appt 6 months Heather gregorio PA-C Work Phone: Start: 02-06-2015 End: 02-07-2015 Documentation of current medications Ivan Rowland MD Start: 02-06-2015 End: 02-06-2015 Follow Up Appt 3 months Gail Grimm Start: 02-06-2015 End: 02-06-2015 MMGail Rowland MD Start: 12-26-2014 End: 12-26-2014 CASHIER ASSISTANT Ivan Rowland MD Start: 12-26-2014 End: 12-27-2014 Documentation of current medications Ivan Rowland MD Start: 12-26-2014 End: 01-05-2015 Echocardiography Ivan Rowland MD Start: 12-26-2014 End: 12-26-2014 Electrocardiogram, complete Ivan Mercado i, MD Start: 12-26-2014 End: 12-26-2014 Follow Up Appt 6 weeks Ivan Rowland MD Start: 12-26-2014 End: 01-05-2015 Nuclear stress test -Danielle Brasher MD Plan of Treatment Date Care Activity Detail Author Start: 11-28-2017 End: 11-28-2017 Appointment Appointment [facility] Work Phone: Start: 05-29-2017 End: 05-29-2017 Appointment Appointment [facility] Work Phone: Start: 05-29-2017 End: 05-29-2017 *BMP *BMP [facility] Work Phone: Start: 05-29-2017 End: 05-29-2017 CASHIER ASSISTANT CASHIER ASSISTANT [facility] Work Phone: Start: 05-29-2017 End: 05-29-2017 Follow Up Appt 6 months Follow Up Appt 6 months [facility] Work Phone: Start: 05-29-2017 End: 05-29-2017 Magnesium *Magnesium [facility] Work Phone: Start: 05-29-2017 End: 05-29-2017 Nuclear stress test -exercise Nuclear stress test -exercise [facility] Work Phone: Start: 11-24-2016 End: 11-24-2016 Follow Up Appt 6 months Follow Up Appt 6 months [facility] Work Phone: Start: 11-24-2016 End: 11-24-2016 MMM MMM [facility] Work Phone: Start: 06-21-2016 End: 06-21-2016 Follow Up BP Check Follow Up BP Check [facility] Work Phone: Start: 05-19-2016 End: 05-19-2016 CASHIER ASSISTANT CASHIER ASSISTANT [facility] Work Phone: Start: 05-19-2016 End: 05-19-2016 Follow Up Appt 6 months Follow Up Appt 6 months [facility] Work Phone: Start: 05-19-2016 End: 05-19-2016 Follow Up BP Check Follow Up BP Check [facility] Work Phone: Start: 11-17-2015 End: 11-17-2015 Follow Up Appt 6 months Follow Up Appt 6 months [facility] Work Phone: Start: 11-17-2015 End: 11-17-2015 MMM MMM [facility] Work Phone: Start: 05-12-2015 End: 05-12-2015 CASHIER ASSISTANTChon GRAY [facility] Work Phone: Start: 05-12-2015 End: 05-12-2015 Follow Up Appt 6 months Follow Up Appt 6 months [facility] Work Phone: Start: 02-06-2015 End: 02-06-2015 Follow Up Appt 3 months Follow Up Appt 3 months [facility] Work Phone: Start: 02-06-2015 End: 02-06-2015 MMM MMGail [facility] [employer] Work Phone: Start: 12-26-2014 End: 12-26-2014 CASHIER ASSISTANT MARINA [facility] [employer] Work Phone: Start: 12-26-2014 End: 12-26-2014 Echocardiography Echocardiogram (complete) [facility] [employer] Work Phone: Start: 12-26-2014 End: 12-26-2014 Electrocardiogram, complete EKG (In office) [facility] Work Phone: Start: 12-26-2014 End: 12-26-2014 Follow Up Appt 6 weeks Follow Up Appt 6 weeks [facility] [employer] Work Phone: Start: 12-26-2014 End: 12-26-2014 Nuclear stress test -Lexiscan Nuclear stress test -Lexiscan [facility] [employer] Work Phone: Summary Purpose Family History No Family History Records Found Advance Directives No Advanced Directives Records Found Additional Source Comments INFORMATION SOURCE (unrecogn ized section and content) FOR RECORDS PERTAINING TO PATIENTS WHO ARE OR HAVE BEEN ENROLLED IN A CHEMICAL DEPENDENCY/SUBSTANCEABUSE PROGRAM, SOME INFORMATION MAY BE OMITTED. This clinical summary was aggregated from multiple sources. Caution should be exercised in using it in the provision of clinical care. This summary normalizes information from multiple sources, and as a consequence, information in this document may materially change the coding, format and clinical context of patient data. In addition, data may be omitted in some cases. CLINICAL DECISIONS SHOULD BE BASED ON THE PRIMARY CLINICAL RECORDS. [employer] [facility]. provides no warranty or guarantee of the accuracy or completeness of information in this document.
== END | disposition home or self-care (01) ==
PROVIDERS: PCP Family Medicine Geriatric Medicine; Referring Provider Family Medicine Geriatric Medicine; Visit Provider Family Medicine Geriatric Medicine
DX: R07.81 Pleurodynia (principal); N39.0 Urinary tract infection, site not specified
CPT/HCPCS: 71101; 87086; 87088

== ENCOUNTER 2023-12-04 14:47 | Emergency (ER) | payer MEDICARE, SELFPAY ==
[2021-04-12 07:28] VITALS: BMI 27.2
[2023-12-04 14:48] VITALS: BP 154/85; PULSE 61; RESP 16; TEMP 36.2; O2SAT 99
[2023-12-04 15:06] VITALS: BMI 27.3
[2023-12-04 15:07] VITALS: BMI 27.3
--- NOTE | 2023-12-04 15:12 | ED.RN ---
daughter reports lives with her. has been having falls, increasing since she started leaning to the left over 1 week ago. last fall x1 week ago. had headache yesterday but denies now.
--- NOTE | 2023-12-04 15:23 | CT_ITS ---
STUDY: CT CERVICAL SPINE WITHOUT CONTRAST REASON FOR EXAM: Female, 88 years old. Trauma RADIATION DOSAGE (If Supplied By Facility): CTDIvol = ( 20.57 ) mGy, DLP = ( 439.99 ) mGycm TECHNIQUE: High resolution transaxial imaging was performed without contrast material. Sagittal and coronal images were reconstructed. Individualized dose optimization techniques were used for this CT. COMPARISON: None FINDINGS: Normal craniovertebral junction. Normal anterior atlantoaxial articulation. Normal odontoid process. Normal cervical lordosis. Normal vertebral bodies and posterior osseous elements. C2-3: Normal endplates. Normal disc height and morphology. Normal central canal and intervertebral neuroforamina. C3-4: Spurring at the endplates. Slightly narrowed disc height. Normal central canal. Uncovertebral spurring narrowing the intervertebral neuroforamina, right more than left. C4-5: Spurring at the endplates. Slightly narrowed disc height. Normal central canal. Uncovertebral spurring slightly narrowing the intervertebral neuroforamina. C5-6: Normal endplates. Normal disc height and morphology. Normal central canal and intervertebral neuroforamina. C6-7: Normal endplates. Normal disc height and morphology. Normal central canal and intervertebral neuroforamina. C7-T1: Normal endplates. Normal disc height and morphology. Normal central canal and intervertebral neuroforamina. Normal visualized soft tissue structures. Right otitis media and mastoiditis. Dilated upper thoracic esophagus with air-fluid level. CT/Spine Cervical without Contras IMPRESSION: Mild degenerative changes of the cervical spine. Right otitis media and mastoiditis. Dilated upper thoracic esophagus with air-fluid level. Electronically Signed: Royce Stinson DO at 17:08 EST Reading Location ID and State: [facility] [place] Tel [phone], Service support ,
--- NOTE | 2023-12-04 15:27 | EDS_ITS ---
HPI History of Present Illness Chief Complaint: Neuro S/Sx Informant: patient and family (Daughter) Narrative Narrative: 88-year-old female presenting to the emergency room after an MRI which showed a large subdural hematoma with shift. Daughter states that she is moved in with her in September. She has had several frequent falls the last being 1 week ago which she sustained some left periorbital ecchymosis. She has been noted to be leaning to the left and slightly forward when she walks. Daughter had her see primary care who ordered an MRI which was performed today demonstrating a 2 cm x 10.5 cm right superior cerebral subdural with 3.9 mm of shift. Patient takes an 81 mg aspirin nightly last dose last night. No seizure activity. Patient states she did her morning workout today and notes good strength in her extremities. Normal sensation. She complained of a slight headache yesterday. 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 coronary artery without angina pectoris Blood in stool Carotid artery stenosis COVID-19 (~10/2021) Dehydration Diarrhea Essential (primary) hypertension Falls Fecal impaction of colon Hyperlipidemia Palpitations Weakness Home Medications metoprolol succinate 50 mg tablet,extended release 24 hr (Toprol XL) 50 mg PO QDAY blood pressure 11/13/17 [History Last Taken 09/08/20] nitroglycerin 0.4 mg sublingual tablet 0.4 mg sublingual Q5-15M PRN Cardiac/Chest Pain 11/14/17 [History Last Taken Unknown] aspirin 81 mg chewable tablet 81 mg PO QDAY heart health 05/14/18 [History Last Taken 09/08/20] omeprazole 40 mg capsule,delayed release 40 mg PO DAILY reflux 09/02/20 [History Last Taken 09/08/20] True Aloe 1,200 mg PO QAM 01/27/21 [History Last Taken Unknown] lactobacillus combination no.8 3 billion cell capsule (Adult Probiotic) 3,000 mmu cells PO DAILY 01/27/21 [History Last Taken Unknown] latanoprost 0.005 % eye drops 1 drp ophthalmic (eye) DAILY 01/27/21 [History Last Taken 06/01/23] albuterol sulfate 90 mcg/actuation aerosol inhaler 2 puff inhalation Q6H PRN shortness of breath 12/31/21 [History Last Taken Unknown] fluticasone fur. 100 mcg-umeclid 62.5 mcg-vilant 25 mcg inhalat.powder (Trelegy Ellipta) 1 inh inhalation DAILY 12/31/21 [History Last Taken Unknown] vitamin B complex 1 tab PO DAILY 12/31/21 [History Last Taken Unknown] budesonide 3 mg capsule,delayed,extended release 9 mg (3 x 3 mg) PO QAM 30 days #90 ea 05/26/23 [Rx Last Taken Unknown] cholecalciferol (vitamin D3) 25 mcg (1,000 unit) tablet 6,000 unit PO DAILY 07/13/23 [History Last Taken Unknown] citalopram 10 mg tablet 20 mg PO DAILY 07/13/23 [History Last Taken Unknown] dorzolamide 2 % eye drops 1 drp ophthalmic (eye) BID 07/13/23 [History Last Taken Unknown] furosemide 20 mg tablet 20 mg PO DAILY 07/13/23 [History Last Taken Unknown] levothyroxine 25 mcg tablet 25 mcg PO DAILY 07/13/23 [History Last Taken Unknown] potassium chloride 20 mEq tablet,extended release(part/cryst) (Klor-Con M) 20 meq PO BID 07/13/23 [History Last Taken Unknown] atorvastatin 40 mg tablet See Rx Instructions .Route .COMPLEX #90 tabs 12/01/23 [Rx Last Taken Unknown] Allergy/AdvReac Type Severity Reaction Status Date / Time lisinopril Allergy Severe unknown Verified 12/04/23 15:04 simvastatin Allergy Severe Swelling Verified 12/04/23 15:04 of mouth and throat Sulfa (Sulfonamide Allergy Severe unknown Verified 12/04/23 15:04 Antibiotics) Family History Mother CAD (coronary artery disease) Hx of CABG Myocardial infarction Hypertension Diabetes Surgical History H/O coronary artery bypass surgery (1997) History of cataract surgery History of coronary artery stent placement (09/08/20) History of hernia repair History of hysterectomy History of left heart catheterization (1997) History of tonsillectomy Social History Smoking Status: Never smoker alcohol intake: never substance use type: does not use caffeine: Yes Type: coffee Number of servings: 1 ROS ROS ED Constitutional Constitutional ED: Denies chills, fever(s) or weight loss Eyes Eyes: Denies blurry vision, change in vision or diplopia ENT ENT ED: Denies ear pain, rhinorrhea or sore throat Cardiovascular Cardiovascular: Denies chest pain, orthopnea, palpitations or racing heartbeat Respiratory/Chest Respiratory/Chest: Denies cough, dyspnea or orthopnea Gastrointestinal Gastrointestinal: Denies abdominal pain, diarrhea, nausea or vomiting Genitourinary Genitourinary ED: Denies dysuria, hematuria or urinary frequency Musculoskeletal Musculoskeletal: Denies arthralgias or myalgias Integumentary Denies abscess or rash Neurologic Neurologic: Reports other Details: Frequent falls leading to the left unsteady while walking ; Denies headache(s), paresthesias or weakness Psychiatric Psychiatric: Denies anxiety, depression, suicidal ideation or suicidal thoughts Endocrine Endocrinology: Denies polydipsia, polyphagia or polyuria Allergic/Immunologic Allergic/Immunologic ED: Denies mouth swelling, tongue swelling or urticaria EXAM Physical Exam Const Vital Signs: 12/04/23 14:48 12/04/23 16:08 12/04/23 16:17 Temperature 97.2 F L Temperature Source Temporal Pulse Rate 61 56 L 57 L Respiratory Rate 16 16 Blood Pressure 154/85 H 161/122 H 157/77 H Blood Pressure Mean 108 135 103 Pulse Ox 99 97 Oxygen Delivery Method Room Air Room Air 12/04/23 16:36 Temperature 97.2 F L Temperature Source Pulse Rate 57 L Respiratory Rate 16 Blood Pressure 135/81 H Blood Pressure Mean 99 Pulse Ox 96 Oxygen Delivery Method Positive well nourished and well developed General Appearance ED: well developed HEENT Reports normocephalic and moist mucous membranes HEENT Narrative: Left periorbital ecchymosis no hyphema noted. Right tympanic membrane does not appear erythematous or bulging. She has got no mastoid tenderness. Eyes PERRL and EOMs intact bilaterally Neck no lymphadenopathy, supple and no JVD Resp normal respiratory effort and clear to auscultation bilaterally Cardio regular rate and regular rhythm Cardio Narrative: 2 out of 6 systolic murmur GI normal to inspection, nondistended, normoactive bowel sounds and non-tender Palpation: soft Back/Spine no CVA tenderness and normal ROM Extremity normal to inspection General Extremety ED: Negative for edema General Extremity: Negative for edema Neuro oriented x3 and CN's II-XII intact bilaterally Sensorium / Orientation: alert Motor Exam: strength 5/5 throughout Psych mental status grossly normal Mood & Affect: Negative for depressed or tearful Skin no rashes or lesions noted and no wounds MDM MDM MDM Narrative Medical decision making narrative: I reviewed the patient's MRI and spoke with the patient and her daughter. I informed them they would need to be transferred to [facility] with neurosurgery. I presented multiple options for them. Using shared decision making the patient will be transferred to [facility] for further care. I am going to obtain a CT of the cervical spine basic labs including coags. Patient was accepted after I spoke with the trauma transfer line for [facility] and then Dr. Shepherd from the emergency department at [facility]. We will have the patient's radiologic imaging transferred into the [facility] system. My independent interpretation of the chest x-ray is no acute process. Status postcardiac bypass. White count 7.6 with a hemoglobin 12.5. Platelet count 314. Coagulation normal. CMP sodium 132 [address] of the cervical spine was obtained. This was negative for fracture. Chronic changes noted. There was some mastoiditis read on both the MRI and the CT and the CT is also being read as otitis media on the right. Patient does not have fever or white count. She is not complaining of any ear pain. She has no mastoid tenderness. The tympanic membrane appears intact and without fluid or erythema. History & Record Review Discussion w/independent historian: Patient and Family Lab Data Attestation: I reviewed the patient's lab results. Labs: Laboratory Results - last 24 hr 12/04/23 15:34 WBC 7.6 RBC 4.22 Hgb 12.5 Hct 38.0 MCV 90.0 MCH 29.6 MCHC 32.9 RDW Std Deviation 44.0 H RDW Coeff of Marisol 13.5 Plt Count 314 MPV 10.0 Immature Gran % (Auto) 0.400 Neut % (Auto) 70.4 H Lymph % (Auto) 17.6 L Irion % (Auto) 10.1 H Eos % (Auto) 1.2 Baso % (Auto) 0.3 Absolute Neuts (auto) 5.4 Absolute Lymphs (auto) 1.34 Nucleated RBC % 0 PT 13.5 INR 1.0 APTT 29.7 Sodium 132 L Potassium 3.9 Chloride 99 Carbon Dioxide 25.0 Anion Gap 8 BUN 12 Creatinine 0.79 Estim Creat Clear Calc 43.91 Est GFR (MDRD) Af Amer 88 Est GFR (MDRD) Non-Af 73 BUN/Creatinine Ratio 15.1 Glucose 99 Calcium 8.8 Total Bilirubin 0.50 AST 14 L ALT 22 Alkaline Phosphatase 103 Total Protein 7.0 Albumin 3.2 Globulin 3.8 Albumin/Globulin Ratio 0.8 L Radiography Diagnostic Testing: Clinical Impression(s) from Imaging Studies Cervical Spine CT 12/04/23 15:23 IMPRESSION: Mild degenerative changes of the cervical spine. Right otitis media and mastoiditis. Dilated upper thoracic esophagus with air-fluid level. Electronically Signed: Royce Stinson DO at 17:08 EST , Chest X-Ray 12/04/23 15:40 IMPRESSION: Stable pleural parenchymal changes at the left lung base. Prior CABG. Electronically Signed: Larry Hardy MD at 15:51 EST , EKG Initial EKG: Attestation: I personally reviewed and interpreted this EKG as follows: Comments: Sinus rhythm with a first-degree AV block with a ventricular rate of 59 bpm Management Discussion w/another healthcare provider: Other ([facility] Transfer Line [facility] Emergency (Dr. Shepherd)) Critical Care Time Critical Care Time: Yes Critical care time (excluding procedures): 30-74 minutes (35 MIN), Including time spent:, Discussing w/Patient &/or Family/[employer], Discussing w/Consultants, Arranging Admission or Transfer and Performing Direct Patient Care at Bedside Discharge Plan Triage Chief Complaint: Neuro S/Sx ED Provider: [place],[facility]za Dx/Rx/DC Orders Clinical Impression: Essential (primary) hypertension, Subdural hematoma Prescriptions: No Action metoprolol succinate [Toprol XL] 50 mg tablet extended release 24 hr 50 mg PO QDAY nitroglycerin 0.4 mg tablet, sublingual 0.4 mg SUBLINGUAL Q5-15M PRN (Reason: Cardiac/Chest Pain) aspirin 81 mg tablet,chewable 81 mg PO QDAY omeprazole 40 mg capsule,delayed release(DR/EC) 40 mg PO DAILY levothyroxine 25 mcg tablet 25 mcg PO DAILY latanoprost 0.005 % drops 1 drp OPHTHALMIC DAILY True Aloe 400 mg 1,200 mg PO QAM Adult Probiotic 3 billion cell capsule 3,000 mmu cells PO DAILY Rx Instructions: administer with a meal cholecalciferol (vitamin D3) 25 mcg (1,000 unit) tablet 6,000 unit PO DAILY Trelegy Ellipta 100-62.5-25 mcg blister with device 1 inh inhalation DAILY albuterol sulfate 90 mcg/actuation HFA aerosol inhaler 2 puff inhalation Q6H PRN (Reason: shortness of breath) vitamin B complex Tablet 1 tab PO DAILY potassium chloride [Klor-Con M20] 20 mEq tablet,ER particles/crystals 20 meq PO BID furosemide 20 mg tablet 20 mg PO DAILY dorzolamide 2 % drops 1 drp ophthalmic (eye) BID citalopram 10 mg tablet 20 mg PO DAILY budesonide 3 mg capsule,delayed,extend.release 9 mg PO QAM 30 Days Qty: 90 3RF atorvastatin 40 mg tablet See Rx Instructions .ROUTE .COMPLEX Qty: 90 3RF Dose Instruction: TAKE 1 TABLET EVERY DAY Rx Instructions: TAKE 1 TABLET EVERY DAY Primary Care Provider: Brian Mckee Chi Referrals: Brian Mckee Chi, MD [Primary Care Provider] - Disposition Disposition: Acute Care Hospital Discharge Location: [facility]
--- NOTE | 2023-12-04 15:40 | RAD_ITS ---
STUDY: X-RAY CHEST REASON FOR EXAM: Female, 88 years old. Hypertension TECHNIQUE: Single AP portable view of the chest. COMPARISON: Comparison is made with prior study dated November 08, 2023. FINDINGS: Stable pleural parenchymal changes at the left lung base. There is no demonstrated pleural abnormality. Sternal cerclage wires and vascular clips are present from a prior sternotomy and coronary artery bypass graft procedure (CABG). Normal mediastinum and simon. Normal visualized pulmonary arteries. There is atherosclerotic calcification of the aortic arch with tortuosity. Normal visualized thoracic spine. Normal visualized ribs, clavicles, and shoulders. There is no demonstrated abnormality of the visualized soft tissue structures of the upper abdomen. RAD/Chest 1 View (Portable) IMPRESSION: Stable pleural parenchymal changes at the left lung base. Prior CABG. Electronically Signed: Larry Hardy MD at 15:51 EST ,
--- OUTSIDE RECORDS SUMMARY | 2023-12-04 15:40 | XMS RPT_ITS | CCD ---
Author Name Unknown Address [address] [place] [address] Organization [facility] Care Team Providers Care Machine Assembler For Puller Over Name Role Phone Nithya LUKE, Ela Ko Unavailable Unavailable PRISCILLA Gunter, Heather Reynolds Unavailable STUART RONDON Unavailable Unavail able PRISCILLA Gunter Michelle M Unavailable [phone] Allergies Allergy Classification Reported Allergen(s) Allergy Type Date of Onset Reaction(s) Facility (5 sources) lisinopril; Translations: [LISINOPRIL] drug allergy 5 ANGIOEDEMA, AOF [facility] Work Phone: (4 sources) Sulfonamides (Antibiotic) drug allergy 2 [facility] Work Phone: (1 source) Sulfonamides (Antibiotic); Translations: [SULFA (SULFONAMIDE ANTIBIOTICS)] Propensity to adverse reactions to drug (disorder) 6 [facility] Medications Completed/Discontinued Medications Medication Drug Class(es) Dates Sig (Normalized) Sig (Original) alendronic acid 70 mg oral tablet (8 sources) Bisphosphonate End: 12-24-2014 ALENDRONATE SODIUM 70 MG TABS once weekly ALENDRONATE SODIUM [id number] Laurence Rodriguez RN ALOE VERA (4 sources) Start: 12-26-2014 ALOE VERA GEL daily ALOE VERA [id number] Ivan Rowland MD amLODIPine 5 mg oral tablet (4 sources) Dihydropyridine Calcium Channel Luz take 1 tablet by mouth once daily AMLODIPINE BESYLATE 5 MG TABS One tablet by mouth daily AMLODIPINE BESYLATE [id number] Danielito Duncan DO aspirin 325 mg oral tablet (4 sources) Nonsteroidal Anti-inflammatory Drug take 1 tablet by mouth once daily ECOTRIN 325 MG TBEC One tablet by mouth daily ASPIRIN [id number] Danielito Duncan DO Problems Active Problems Problem Classification Problem Date Documented Date Episodic/Chronic Complication of device; implant or graft (4 sources) Atherosclerosis of coronary artery bypass graft(s) without angina pectoris; Translations: [Atherosclerosis of coronary artery bypass graft(s) without angina pectoris] Onset: 05-12-2016 05-12-2016 Chronic Coronary atherosclerosis and other heart disease (12 sources) Atherosclerotic heart disease of [place] coronary artery without angina pectoris; Translations: [Coronary [...] 12:44-0400 Weight 64.64 kg Heather Gunter PA-C [facility] Work Phone: 11-24-2016 14:56-0500 BMI (Body Mass Index) 26.79 kg/m2 Heather Gunter PA-C [facility] Work Phone: 11-24-2016 14:56-0500 BP Diastolic 64 mm[Hg] Heather Gunter PA-C [facility] Work Phone: 11-24-2016 14:56-0500 BP Systolic 120 mm[Hg] Heather Gunter PA-C [facility] Work Phone: 11-24-2016 14:56-0500 BSA (Body Surface Area) 1.68 m2 Heather Gunter PA-C [facility] Work Phone: 11-24-2016 14:56-0500 Pulse (Heart Rate) 76 /min Heather Gunter PA-C [facility] Work Phone: 11-24-2016 14:56-0500 Respiratory Rate 20 /min Heather Gunter PA-C [facility] Work Phone: 11-24-2016 14:56-0500 Weight 66.45 kg Heather Gunter PA-C [facility] Work Phone: 12-26-2014 16:03-0500 Heart rate 74 /min Heather Gunter PA-C [facility] Work Phone: 12-26-2014 15:06-0500 Height 157.48 cm Heather Gunter PA-C [facility] Work Phone: 01-23-2012 10:59-0400 Body Temperature 98.2 [degF] Heather Gunter PA-C [facility] Work Phone: Encounters Encounter Date Encounter Type Care Provider Facility Start: 08-28-2017 End: 08-29-2017 Ambulatory STUART CARDENAS [facility] Procedures Date Procedure Procedure Detail Performing Clinician Start: 05-29-2017 End: 05-29-2017 *BMP Heather Gunter PA-C Work Phone: Start: 05-29-2017 End: 05-29-2017 DOOR LINER Heather Gunter PA-C Work Phone: Start: 05-29-2017 [...] MMGail Rowland MD Start: 05-12-2015 End: 05-12-2015 DOOR LINER Heather Gunter PA-C Work Phone: Start: 05-12-2015 [...] MMGail Rowland MD Start: 12-26-2014 End: 12-26-2014 DOOR LINER Ivan Rowland MD Start: 12-26-2014 End: 12-27-2014 [...] Author Start: 11-28-2017 End: 11-28-2017 Appointment Appointment [facility] Work Phone: Start: 05-29-2017 End: 05-29-2017 Appointment Appointment [facility] Work Phone: Start: 05-29-2017 End: 05-29-2017 *BMP *BMP [facility] Work Phone: Start: 05-29-2017 End: 05-29-2017 DOOR LINER DOOR LINER [facility] Work Phone: Start: 05-29-2017 End: 05-29-2017 Follow Up Appt 6 months Follow Up Appt 6 months [facility] Work Phone: Start: 05-29-2017 End: 05-29-2017 Magnesium *Magnesium [facility] Work Phone: Start: 05-29-2017 End: 05-29-2017 Nuclear stress test -exercise Nuclear stress test -exercise [facility] Work Phone: Start: 11-24-2016 End: 11-24-2016 Follow Up Appt 6 months Follow Up Appt 6 months [facility] Work Phone: Start: 11-24-2016 End: 11-24-2016 MMM MMM [facility] Work Phone: Start: 06-21-2016 End: 06-21-2016 Follow Up BP Check Follow Up BP Check [facility] Work Phone: Start: 05-19-2016 End: 05-19-2016 DOOR LINER DOOR LINER [facility] Work Phone: Start: 05-19-2016 End: 05-19-2016 Follow Up Appt 6 months Follow Up Appt 6 months [facility] Work Phone: Start: 05-19-2016 End: 05-19-2016 Follow Up BP Check Follow Up BP Check [facility] Work Phone: Start: 11-17-2015 End: 11-17-2015 Follow Up Appt 6 months Follow Up Appt 6 months [facility] Work Phone: Start: 11-17-2015 End: 11-17-2015 MMM MMM [facility] Work Phone: Start: 05-12-2015 End: 05-12-2015 DOOR LINERChon GRAY [facility] Work Phone: Start: 05-12-2015 End: 05-12-2015 Follow Up Appt 6 months Follow Up Appt 6 months [facility] Work Phone: Start: 02-06-2015 End: 02-06-2015 Follow Up Appt 3 months Follow Up Appt 3 months [facility] Work Phone: Start: 02-06-2015 End: 02-06-2015 MMM MMGail [facility] Work Phone: Start: 12-26-2014 End: 12-26-2014 DOOR LINER MARINA [facility] Work Phone: Start: 12-26-2014 End: 12-26-2014 Echocardiography Echocardiogram (complete) [facility] Work Phone: Start: 12-26-2014 End: 12-26-2014 Electrocardiogram, complete EKG (In office) [facility] Work Phone: Start: 12-26-2014 End: 12-26-2014 Follow Up Appt 6 weeks Follow Up Appt 6 weeks [facility] Work Phone: Start: 12-26-2014 End: 12-26-2014 Nuclear stress test -Lexiscan Nuclear stress test -Lexiscan [facility] Work Phone: Summary Purpose Family History No [...] BE BASED ON THE PRIMARY CLINICAL RECORDS. [facility] [facility]. provides no warranty or guarantee of the accuracy or completeness of information in this document.
--- NOTE | 2023-12-04 15:57 | ED.RN ---
[facility] CALLED, ETA 2 HOURS ([phone])
[2023-12-04 15:58] LABS: Absolute Lymphocyte Count 1.34 X10^3/uL (0.83-4.51); Absolute Neutrophil Count 5.4 X10^3/uL (2.0-7.7); Basophil# 0.02 X10^3/uL; Basophil% 0.3 % (0-1); Eosinophil# 0.09 X10^3/uL; Eosinophils% 1.2 % (0-5); Hemoglobin 12.5 g/dL (12.0-15.0); Lymphocyte # 1.34 X10^3/ul (0.83-4.51); Lymphocyte % 17.6 % (19-41); Mean Corp Hgb Conc 32.9 g/dL (32-36); Mean Corpuscular Hgb 29.6 pg (27.0-32.0); Monocyte# 0.77 X10^3/uL; Monocyte% 10.1 % (0-10); NRBC Flagged by Analyzer 0 % (0-5); Neutrophil # 5.38 X10^3/uL (2.7-7.7); Neutrophil % 70.4 % (47-70); Platelet Count 314 K/mm3 (150-450); RBC Distribution Width CV 13.5 % (11.6-14.6); Red Blood Count 4.22 M/mm3 (4.2-5.4); White Blood Count 7.6 K/mm3 (4.4-11.0)
--- NOTE | 2023-12-04 16:02 | ED.RN ---
[facility] CALLED US, DISPATCH STATED THEY WERE ABLE TO OUTSOURCE TRANSPORTATION TO [facility]. ETA IS STILL [phone]
[2023-12-04 16:08] VITALS: BP 161/122; PULSE 56; RESP 16; O2SAT 97
[2023-12-04 16:11] LABS: ALB/GLOB Ratio 0.8 RATIO (0.9-2.4); AST(SGOT) 14 U/L (15-37); Alanine Aminotransfer ALT/SGPT 22 U/L (13-56); Albumin, Serum 3.2 g/dL (3.2-5.0); Alkaline Phosphatase 103 U/L (45-117); Anion Gap 8 (5-15); BUN 12 mg/dL (7-18); BUN/Creat Ratio 15.1 RATIO (10-20); Calcium,Total 8.8 mg/dL (8.5-10.1); Chloride 99 mmol/L (98-107); Creatinine, Serum 0.79 mg/dL (0.55-1.02); EST Glomerular Filtration Rate 73 mL/min (>60); Est Glom Filt Rate - Afr Amer 88 mL/min (>60); Estimated Creatinine Clearance 43.91 ml/min; Globulin 3.8 g/dL (2.2-4.2); Glucose 99 mg/dL (74-106); Potassium 3.9 mmol/L (3.5-5.1); Sodium Level 132 mmol/L (136-145)
--- NOTE | 2023-12-04 16:12 | ED.RN ---
Spoke with Dr. Fajardo to clarify BP control and if we need to do glascow scale Q15 min. reports subdural and not hemorrhagic stroke and does not need to be ordered this at this time. BP med ordered for BP 161/122.
[2023-12-04 16:14] LABS: Prothrombin Time (Protime)PT. 13.5 SECONDS (11.7-14.9)
[2023-12-04 16:15] LABS: Partial Thromboplast Time 29.7 Seconds (24.1-36.2)
[2023-12-04 16:17] VITALS: BP 157/77; PULSE 57
[2023-12-04 16:36] VITALS: BP 135/81; PULSE 57; RESP 16; TEMP 36.2; O2SAT 96
[2023-12-04 18:08] VITALS: BP 146/75; PULSE 60; RESP 14; O2SAT 97
--- NOTE | 2023-12-04 18:20 | ED.RN ---
CALLED [facility] TO GET AN UPDATED ETA @1800, DISPATCH TOLD US [facility] IS IN ROUTE AND 30-45 MIN AWAY.
--- NOTE | 2023-12-04 18:31 | ED.RN ---
did not use labetolol
== END 2023-12-04 18:31 | disposition short-term general hospital (02) ==
PROVIDERS: Emergency Provider Emergency Medicine; PCP Family Medicine Geriatric Medicine; Visit Provider Emergency Medicine
DX: I10 Essential (primary) hypertension (principal); S06.5XAA Traumatic subdural hemorrhage with loss of consciousness status unknown, initial encounter; R51.9 Headache, unspecified; I25.10 Atherosclerotic heart disease of native coronary artery without angina pectoris; Z79.82 Long term (current) use of aspirin; Z79.899 Other long term (current) drug therapy; Z86.16 Personal history of COVID-19; Z95.1 Presence of aortocoronary bypass graft; Z95.5 Presence of coronary angioplasty implant and graft; W19.XXXA Unspecified fall, initial encounter
CPT/HCPCS: 70551; 71045; 72125; 80053; 85025; 85610; 85730; 93005; 99285; A4216

== ENCOUNTER → 2023-12-04 | Outpatient (CLI) | payer MEDICARE, SELFPAY ==
[2021-04-12 07:28] VITALS: BMI 27.2
--- OUTSIDE RECORDS SUMMARY | 2023-12-04 13:29 | XMS RPT_ITS | CCD ---
Author Name Unknown Address [address] [place] [address] Organization [facility] Care Team Providers Care Paediatric Thoracic Physician Name Role Phone Nithya LUKE, Ela Ko Unavailable Unavailable PRISCILLA Gunter, Heather Reynolds Unavailable STUART RONDON Unavailable Unavail able PRISCILLA Gunter Michelle M Unavailable Allergies Allergy Classification Reported Allergen(s) Allergy Type Date of Onset Reaction(s) Facility (5 sources) lisinopril; Translations: [LISINOPRIL] drug allergy 5 ANGIOEDEMA, AOF [facility] Work Phone: (4 sources) Sulfonamides (Antibiotic) drug allergy 2 [facility] Work Phone: (1 source) Sulfonamides (Antibiotic); Translations: [SULFA (SULFONAMIDE ANTIBIOTICS)] Propensity to adverse reactions to drug (disorder) 6 [facility] Repository Medications Completed/Discontinued Medications Medication Drug Class(es) Dates Sig (Normalized) Sig (Original) alendronic acid 70 mg oral tablet (8 sources) Bisphosphonate End: 12-24-2014 ALENDRONATE SODIUM 70 MG TABS once weekly ALENDRONATE SODIUM [id number] Laurence Rodriguez RN ALOE VERA (4 sources) Start: 12-26-2014 ALOE VERA GEL daily ALOE VERA [id number] Ivan Rowland MD amLODIPine 5 mg oral tablet (4 sources) Dihydropyridine Calcium Channel Luz take 1 tablet by mouth once daily AMLODIPINE BESYLATE 5 MG TABS One tablet by mouth daily AMLODIPINE BESYLATE [id number] Danielito Duncan DO aspirin 325 mg oral tablet (4 sources) Nonsteroidal Anti-inflammatory Drug take 1 tablet by mouth once daily ECOTRIN 325 MG TBEC One tablet by mouth daily ASPIRIN [id number] Danielito Duncan DO Problems Active Problems Problem Classification Problem Date Documented Date Episodic/Chronic Complication of device; implant or graft (4 sources) Atherosclerosis of coronary artery bypass graft(s) without angina pectoris; Translations: [Atherosclerosis of coronary artery bypass graft(s) without angina pectoris] Onset: 05-12-2016 05-12-2016 Chronic Coronary atherosclerosis and other heart disease (12 sources) Atherosclerotic heart disease of [place] coronary artery without angina pectoris; Translations: [Coronary [...] 12:44-0400 Weight 64.64 kg Heather Gunter PA-C [facility] Work Phone: 11-24-2016 14:56-0500 BMI (Body Mass Index) 26.79 kg/m2 Heather Gunter PA-C [facility] Work Phone: 11-24-2016 14:56-0500 BP Diastolic 64 mm[Hg] Heather Gunter PA-C [facility] Work Phone: 11-24-2016 14:56-0500 BP Systolic 120 mm[Hg] Heather Gunter PA-C [facility] Work Phone: 11-24-2016 14:56-0500 BSA (Body Surface Area) 1.68 m2 Heather Gunter PA-C [facility] Work Phone: 11-24-2016 14:56-0500 Pulse (Heart Rate) 76 /min Heather Gunter PA-C [facility] Work Phone: 11-24-2016 14:56-0500 Respiratory Rate 20 /min Heather Gnuter PA-C [facility] Work Phone: 11-24-2016 14:56-0500 Weight 66.45 kg Heather Gunter PA-C [facility] Work Phone: 12-26-2014 16:03-0500 Heart rate 74 /min Heather Gunter PA-C [facility] Work Phone: 12-26-2014 15:06-0500 Height 157.48 cm Heather Gunter PA-C [facility] Work Phone: 01-23-2012 10:59-0400 Body Temperature 98.2 [degF] Heather Gunter PA-C [facility] Work Phone: Encounters Encounter Date Encounter Type Care Provider Facility Start: 08-28-2017 End: 08-29-2017 Ambulatory STUART CARDENAS [facility] Procedures Date Procedure Procedure Detail Performing Clinician Start: 05-29-2017 End: 05-29-2017 *BMP Heather Gunter PA-C Work Phone: Start: 05-29-2017 End: 05-29-2017 CONCRETE FLOOR INSTALLER Heather Gunter PA-C Work Phone: Start: 05-29-2017 [...] MMGail Rowland MD Start: 05-12-2015 End: 05-12-2015 CONCRETE FLOOR INSTALLER Heather Gunter PA-C Work Phone: Start: 05-12-2015 [...] MMGail Rowland MD Start: 12-26-2014 End: 12-26-2014 CONCRETE FLOOR INSTALLER Ivan Rowland MD Start: 12-26-2014 End: 12-27-2014 [...] Author Start: 11-28-2017 End: 11-28-2017 Appointment Appointment [facility] Work Phone: Start: 05-29-2017 End: 05-29-2017 Appointment Appointment [facility] Work Phone: Start: 05-29-2017 End: 05-29-2017 *BMP *BMP [facility] Work Phone: Start: 05-29-2017 End: 05-29-2017 CONCRETE FLOOR INSTALLER CONCRETE FLOOR INSTALLER [facility] Work Phone: Start: 05-29-2017 End: 05-29-2017 Follow Up Appt 6 months Follow Up Appt 6 months [facility] Work Phone: Start: 05-29-2017 End: 05-29-2017 Magnesium *Magnesium [facility] Work Phone: Start: 05-29-2017 End: 05-29-2017 Nuclear stress test -exercise Nuclear stress test -exercise [facility] Work Phone: Start: 11-24-2016 End: 11-24-2016 Follow Up Appt 6 months Follow Up Appt 6 months [facility] Work Phone: Start: 11-24-2016 End: 11-24-2016 MMM MMM [facility] Work Phone: Start: 06-21-2016 End: 06-21-2016 Follow Up BP Check Follow Up BP Check [facility] Work Phone: Start: 05-19-2016 End: 05-19-2016 CONCRETE FLOOR INSTALLER CONCRETE FLOOR INSTALLER [facility] Work Phone: Start: 05-19-2016 End: 05-19-2016 Follow Up Appt 6 months Follow Up Appt 6 months [facility] Work Phone: Start: 05-19-2016 End: 05-19-2016 Follow Up BP Check Follow Up BP Check [facility] Work Phone: Start: 11-17-2015 End: 11-17-2015 Follow Up Appt 6 months Follow Up Appt 6 months [facility] Work Phone: Start: 11-17-2015 End: 11-17-2015 MMM MMM [facility] Work Phone: Start: 05-12-2015 End: 05-12-2015 CONCRETE FLOOR INSTALLERChon GRAY [facility] Work Phone: Start: 05-12-2015 End: 05-12-2015 Follow Up Appt 6 months Follow Up Appt 6 months [facility] Work Phone: Start: 02-06-2015 End: 02-06-2015 Follow Up Appt 3 months Follow Up Appt 3 months [facility] Work Phone: Start: 02-06-2015 End: 02-06-2015 MMM MMGail [facility] Work Phone: Start: 12-26-2014 End: 12-26-2014 CONCRETE FLOOR INSTALLER MARINA [facility] Work Phone: Start: 12-26-2014 End: 12-26-2014 Echocardiography Echocardiogram (complete) [facility] Work Phone: Start: 12-26-2014 End: 12-26-2014 Electrocardiogram, complete EKG (In office) [facility] Work Phone: Start: 12-26-2014 End: 12-26-2014 Follow Up Appt 6 weeks Follow Up Appt 6 weeks [facility] Work Phone: Start: 12-26-2014 End: 12-26-2014 Nuclear stress test -Lexiscan Nuclear stress test -Lexiscan [facility] Work Phone: Summary Purpose Family History No [...] BE BASED ON THE PRIMARY CLINICAL RECORDS. [employer] [facility]. provides no warranty or guarantee of the accuracy or completeness of information in this document.
--- NOTE | 2023-12-04 14:00 | MRI_ITS ---
We are attempting to reach an attending provider to discuss findings. An addendum with communication details will be sent when the communication is complete. STUDY: MRI BRAIN WITHOUT CONTRAST REASON FOR EXAM: Female, 88 years old. HEADACHE,FALL TECHNIQUE: Standardized multiplanar fat and water weighted pulse sequences were obtained. COMPARISON: MRI of the brain dated May 06, 2014 FINDINGS: A large right superior cerebral hemispheric subdural hemorrhage is present measuring 1.95 cm in width and 10.44 cm in length/anterior to posterior dimension. A subdural hemorrhage has caused mild leftward midline shift of 3.9 mm. There is moderate cerebral atrophy with widening of the extra-axial spaces and ventricular dilatation. There are multiple white matter hyperintensities, distributed throughout the deep white matter tracts of the cerebral hemispheres, consistent with moderate chronic white matter ischemic changes. There is no evidence for recent intracranial ischemia or other cause of cytotoxic edema on diffusion weighted imaging (DWI). Chronic ischemic changes are present in the bilateral basal ganglia. Normal thalami. There is no extra-axial fluid accumulation. Normal flow voids within the major intracranial circulation suggesting patency by spin echo criteria. Normal sella turcica, pituitary gland, infundibular stalk, optic chiasm and hypothalamus. Normal tectal plate and pineal gland. There are chronic white matter ischemic changes of the jax. The midbrain and medulla are otherwise normal. Normal cerebellum. Normal basal cisterns. Normal bilateral temporal bones. Normal bilateral internal auditory canals. No demonstrated orbital abnormality, within the constraints of a routine brain study. Normal visualized paranasal sinuses. Normal calvarium and skull base. Normal visualized soft tissue structures. Normal visualized upper cervical spine. Severe right opacification of the mastoid air cells is present. There is mild disease on the left. MRI/Brain without Contrast IMPRESSION: 1. A large right superior cerebral hemispheric subdural hemorrhage is present measuring 1.95 cm in width and 10.44 cm in length/anterior to posterior dimension. A subdural hemorrhage has caused mild leftward midline shift of 3.9 mm. 2. Severe right otomastoiditis Electronically Signed: Harpal Bowers MD at 14:33 EST ,
== END | disposition home or self-care (01) ==
LOC: MRI 12:56
PROVIDERS: PCP Family Medicine Geriatric Medicine; Visit Provider Family Medicine Geriatric Medicine
DX: R51.9 Headache, unspecified (principal); W19.XXXA Unspecified fall, initial encounter
CPT/HCPCS: 70551

== ENCOUNTER 2023-12-16 20:13 | Emergency (ER) | payer MEDICARE, SELFPAY ==
[2021-04-12 07:28] VITALS: BMI 27.2
[2023-12-16] VITALS (7 sets, daily range): BP systolic 120–153; BP diastolic 63–101; PULSE 15–65; RESP 13–16; TEMP 36.1; O2SAT 96–98; BMI 27.3
--- NOTE | 2023-12-16 21:01 | CT_ITS ---
STUDY: CTA HEAD AND NECK WITH CONTRAST REASON FOR EXAM: Female, 88 years old. Neuro deficit, acute, stroke suspected RADIATION DOSAGE (If Supplied By Facility): CTDIvol = ( 28.73 ) mGy, DLP = ( 1413.68 ) mGycm TECHNIQUE: CT angiography was performed with a multi-detector CT scanner. Data acquisition was obtained from the skull base through the vertex following intravenous administration of IV 100mL Isovue-370. MIP images were reconstructed from the axial data set. Post-processing of the angiographic images was performed, with multiplanar reformation and 3D reconstruction. Individualized dose optimization techniques were used for this CT. COMPARISON: MRI 12/04/2023 FINDINGS: Normal bilateral petrous carotid arteries. There is calcified plaque formation of the right cavernous carotid artery, without a cross-sectional luminal stenosis. There is calcified plaque formation of the left cavernous carotid artery, without a cross-sectional luminal stenosis. Normal right A1 segments of the anterior cerebral artery. Normal left A1 segments of the anterior cerebral artery. Normal intact anterior communicating artery (ACOM). Normal bilateral A2 segments of the anterior cerebral arteries. There is irregularity of the right M1 and M2 branches with minimal luminal narrowing, suggesting atherosclerotic plaque formation, without an occlusion. There is irregularity of the left M1 and M2 branches with minimal luminal narrowing, suggesting atherosclerotic plaque formation, without an occlusion. Normal right posterior communicating artery (PCOM). Normal left posterior communicating artery (PCOM). Normal bilateral vertebral arteries. Normal basilar artery with a normal basilar bifurcation. The visualized bilateral superior cerebellar (SCA) arteries are normal. Normal bilateral P1, P2 and visualized P3 segments of the posterior cerebral arteries. There is no demonstrated aneurysm of the [place]. As on the MRI, patient has a large right subdural fluid collection with mass effect on the right cerebral hemisphere. AORTIC ARCH: Normal visualized aortic arch. Normal origins of the brachiocephalic, left common carotid, and left subclavian arteries. RIGHT CAROTID ARTERIES: Normal right common carotid artery (CCA). There is mild atherosclerotic plaque formation with minimal narrowing of the right carotid bulb. There is mild atherosclerotic plaque formation of the origin of the right internal carotid artery with less than 50% cross sectional diameter stenosis. There is atherosclerotic tortuous elongation of the cervical portion of the right internal carotid artery. Normal origin of the right external carotid artery (ECA). LEFT CAROTID ARTERIES: Normal left common carotid artery (CCA). There is mild atherosclerotic plaque formation with minimal narrowing of the left carotid bulb. There is mild atherosclerotic plaque formation of the origin of the left internal carotid artery with less than 50% cross sectional diameter stenosis. There is atherosclerotic tortuous elongation of the cervical portion of the left internal carotid artery. Normal origin of the left external carotid artery (ECA). VERTEBRAL ARTERIES: Normal bilateral vertebral arteries. CT/CTA Head AND Neck W/ Contrast IMPRESSION: No acute abnormalities of the neck or intracranial vessels. No large vessel occlusion. Mild grade stenosis of both ICAs. Right subdural fluid collection with mass effect Electronically Signed: David Agudelo MD at 22:16 EST ,
--- NOTE | 2023-12-16 21:01 | EDS_ITS ---
HPI History of Present Illness Chief Complaint: Neuro S/Sx Narrative Narrative: 88-year-old female presenting with left-sided facial droop and slurred speech was last about 5 minutes this evening at 7 PM. Patient was with her family. They were just eating dinner. It is noted by family that patient also had some sweating today. She states she was having pain. She states that in her head. She states that since she had a recent surgery for subdural hematoma last week she has been experiencing pain. Surgery was done at [facility]. Patient is not on any blood thinners currently. No aspirin. Patient has been coughing a lot today family is concerned this may be causing the pain. Patient denies visual complaints, dizziness, nausea, vomiting. She states that her headache pain is baseline but it does come and go. Patient feels her facial droop is improved although she does have a little bit of left-sided facial droop at baseline. When she smiles he is able to overcome this. No slurred speech. Patient denies chest pain or shortness of breath. 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 disease of [place] coronary artery without angina pectoris Blood in stool Carotid artery stenosis COVID-19 (~10/2021) Dehydration Diarrhea Essential (primary) hypertension Falls Fecal impaction of colon Hyperlipidemia Palpitations Weakness Home Medications metoprolol succinate 50 mg tablet,extended release 24 hr (Toprol XL) 50 mg PO QDAY blood pressure 11/13/17 [History Last Taken 09/08/20] nitroglycerin 0.4 mg sublingual tablet 0.4 mg sublingual Q5-15M PRN Cardiac/Chest Pain 11/14/17 [History Last Taken Unknown] omeprazole 40 mg capsule,delayed release 40 mg PO DAILY reflux 09/02/20 [History Last Taken 09/08/20] lactobacillus combination no.8 3 billion cell capsule (Adult Probiotic) 3,000 mmu cells PO DAILY 01/27/21 [History Last Taken Unknown] latanoprost 0.005 % eye drops 1 drp ophthalmic (eye) DAILY 01/27/21 [History Last Taken 06/01/23] albuterol sulfate 90 mcg/actuation aerosol inhaler 2 puff inhalation Q6H PRN shortness of breath 12/31/21 [History Last Taken Unknown] fluticasone fur. 100 mcg-umeclid 62.5 mcg-vilant 25 mcg inhalat.powder (Trelegy Ellipta) 1 inh inhalation DAILY 12/31/21 [History Last Taken Unknown] cholecalciferol (vitamin D3) 25 mcg (1,000 unit) tablet 4,000 unit PO DAILY 07/13/23 [History Last Taken Unknown] citalopram 10 mg tablet 10 mg PO DAILY 07/13/23 [History Last Taken Unknown] dorzolamide 2 % eye drops 1 drp ophthalmic (eye) BID 07/13/23 [History Last Taken Unknown] furosemide 20 mg tablet 20 mg PO DAILY 07/13/23 [History Last Taken Unknown] levothyroxine 25 mcg tablet 25 mcg PO DAILY 07/13/23 [History Last Taken Unknown] potassium chloride 20 mEq tablet,extended release(part/cryst) (Klor-Con M) 20 meq PO BID 07/13/23 [History Last Taken Unknown] atorvastatin 40 mg tablet See Rx Instructions .Route .COMPLEX #90 tabs 12/01/23 [Rx Last Taken Unknown] bupropion HCl 150 mg tablet,12 hr sustained-release 150 mg PO Q12H 12/04/23 [History Last Taken Unknown] amlodipine 5 mg tablet 5 mg PO DAILY 12/16/23 [History Last Taken Unknown] Allergy/AdvReac Type Severity Reaction Status Date / Time lisinopril Allergy Severe unknown Verified 12/16/23 20:21 simvastatin Allergy Severe Swelling Verified 12/16/23 20:21 of mouth and throat Sulfa (Sulfonamide Allergy Severe unknown Verified 12/16/23 20:21 Antibiotics) Family History Mother CAD (coronary artery disease) Hx of CABG Myocardial infarction Hypertension Diabetes Surgical History H/O coronary artery bypass surgery (1997) History of cataract surgery History of coronary artery stent placement (09/08/20) History of hernia repair History of hysterectomy History of left heart catheterization (1997) History of tonsillectomy Social History Smoking Status: Never smoker alcohol intake: never substance use type: does not use caffeine: Yes Type: coffee Number of servings: 1 ROS ROS ED Constitutional Constitutional ED: Denies chills, fever(s) or sweats Eyes Eyes: Denies blurry vision or change in vision ENT ENT ED: Denies ear pain or sore throat Cardiovascular Cardiovascular: Denies chest pain, palpitations or racing heartbeat Respiratory/Chest Respiratory/Chest: Denies cough, dyspnea or sputum Gastrointestinal Gastrointestinal: Denies abdominal pain, constipation, diarrhea, nausea or vomiting Genitourinary Genitourinary ED: Denies dysuria, hematuria or urinary frequency Musculoskeletal Musculoskeletal: Denies arthralgias, myalgias or neck pain Integumentary Denies abscess, Abrasions or rash Neurologic Neurologic: Reports headache(s) and other Details: Slurred speech, facial droop ; Denies paresthesias or weakness Psychiatric Psychiatric: Denies anxiety, depression, suicidal ideation or suicidal thoughts Endocrine Endocrinology: Denies polydipsia or polyuria EXAM Physical Exam Const Vital Signs: 12/16/23 20:15 12/16/23 21:17 12/16/23 21:19 Temperature 96.9 F L Temperature Source Temporal Pulse Rate 65 15 L Respiratory Rate 13 13 Blood Pressure 149/75 H 137/75 H Blood Pressure Mean 99 95 Pulse Ox 96 97 Oxygen Delivery Method Room Air Room Air Room Air 12/16/23 21:30 12/16/23 22:00 12/16/23 22:30 Temperature Temperature Source Pulse Rate 59 L 59 L 59 L Respiratory Rate 13 16 14 Blood Pressure 144/101 H 120/75 153/63 H Blood Pressure Mean 115 90 93 Pulse Ox 96 96 98 Oxygen Delivery Method Room Air Room Air Room Air Positive well nourished General Appearance ED: NAD HEENT Reports moist mucous membranes Eyes PERRL and EOMs intact bilaterally Chest Wall inspection of chest normal Resp normal respiratory effort and clear to auscultation bilaterally Auscultation: Negative for rales, rhonchi or wheezes GI normal to inspection, nondistended, normoactive bowel sounds Neuro oriented x3 and CN's II-XII intact bilaterally Sensorium / Orientation: alert Motor Exam: strength 5/5 throughout Psych mental status grossly normal NIHSS NIHSS Initial: 1a Level of Consciousness: 0 1b LOC Questions (Score 2 if aphasic/stupor): 0 1c LOC Commands (Only score 1st attempt): 0 2 Best Gaze (If aphasic, use reflexive mvmts.): 0 3 Visual: 0 4 Facial Palsy: 0 5 Motor Arm Right (UN = amputation/fusion): 0 5 Motor Arm Left: 0 6 Motor Leg Right: 0 6 Motor Leg Left: 0 7 Limb ataxia (Only + if out of proportion): 0 8 Sensory (Aphasia/stupor=0 or 1, coma=2): 0 9 Best Language: 0 10 Dysarthria (mute, coma=2, intubated=UN): 0 11 Extinction and Inattention (only scored if +): 0 Total Score: 0 MDM MDM MDM Narrative Medical decision making narrative: 88-year-old female with history of subdural hematoma with TIA symptoms. Differential includes TIA, stroke, subdural hematoma, epidural hematoma, dehydration, anemia, electrolyte abnormalities. CBC will be obtained to assess white blood cell count, hemoglobin, platelets with BMP to assess renal function, electrolytes, glucose. High-sensitivity troponin EKG to assess for ischemia. Chest x-ray to rule pneumonia. CT brain and CTA will be obtained due to recent intracranial bleed. NIH stroke scale score currently 0. CBC, BMP within normal limits. Coagulation studies normal. High-sensitivity opponent 14. EKG on my interpretation shows atrial fibrillation at a controlled ventricular response at [address] imaging shows concern for right subdural fluid collection with mass effect. Discussed with [facility] (Dr. Monzon) who felt this was abnormal postsurgically and recommended transfer back to [facility]. Patient counseled on findings. Appropriate transfer paperwork was filled out. She still alert and awake with no focal deficits on examination. Vital signs are stable and she is afebrile. I did discuss her with the transfer line who is going to get a touch with neurology and the hospitalist and try to arrange admission. Impression: 1. TIA 2. History of subdural hematoma 3. Right subdural fluid with mass effect Lab Data Attestation: I reviewed the patient's lab results. Labs: Laboratory Results - last 24 hr 12/16/23 21:10 WBC 11.0 RBC 3.97 L Hgb 11.7 L Hct 35.6 L MCV 89.7 MCH 29.5 MCHC 32.9 RDW Std Deviation 45.3 H RDW Coeff of Marisol 13.7 Plt Count 361 MPV 8.9 Immature Gran % (Auto) 0.700 Neut % (Auto) 78.0 H Lymph % (Auto) 12.5 L [place] % (Auto) 8.3 Eos % (Auto) 0.3 Baso % (Auto) 0.2 Absolute Neuts (auto) 8.6 H Absolute Lymphs (auto) 1.37 Nucleated RBC % 0 PT 14.0 INR 1.1 APTT 31.6 Sodium 135 L Potassium 3.6 Chloride 104 Carbon Dioxide 25.0 Anion Gap 6 BUN 12 Creatinine 0.67 Estim Creat Clear Calc 43.85 Est GFR (MDRD) Af Amer 107 Est GFR (MDRD) Non-Af 88 BUN/Creatinine Ratio 17.9 Glucose 102 Calcium 8.9 Troponin I High Sens 14 Radiography Diagnostic Testing: Clinical Impression(s) from Imaging Studies Head/Neck CTA 12/16/23 21:01 IMPRESSION: No acute abnormalities of the neck or intracranial vessels. No large vessel occlusion. Mild grade stenosis of both ICAs. Right subdural fluid collection with mass effect Electronically Signed: David Agudelo MD at 22:16 EST Reading Location ID and State: [employer] [facility] , Service support , Chest X-Ray 12/16/23 21:40 IMPRESSION: Incomplete expansion of the lungs. Bilateral hazy density suggestive of congestion/edema. Soft tissue density in the right paratracheal region also present previously but needs further evaluation with contrast CT. Electronically Signed: David Agudelo MD at 21:56 EST Reading Location ID and State: [email or web address] / [facility] , Service support , Discharge Plan Triage Chief Complaint: Neuro S/Sx ED Provider: [place] Dx/Rx/DC Orders Prescriptions: No Action metoprolol succinate [Toprol XL] 50 mg tablet extended release 24 hr 50 mg PO QDAY nitroglycerin 0.4 mg tablet, sublingual 0.4 mg SUBLINGUAL Q5-15M PRN (Reason: Cardiac/Chest Pain) omeprazole 40 mg capsule,delayed release(DR/EC) 40 mg PO DAILY levothyroxine 25 mcg tablet 25 mcg PO DAILY latanoprost 0.005 % drops 1 drp OPHTHALMIC DAILY Adult Probiotic 3 billion cell capsule 3,000 mmu cells PO DAILY Rx Instructions: administer with a meal cholecalciferol (vitamin D3) 25 mcg (1,000 unit) tablet 4,000 unit PO DAILY Hold Instructions: on hold Trelegy Ellipta 100-62.5-25 mcg blister with device 1 inh inhalation DAILY albuterol sulfate 90 mcg/actuation HFA aerosol inhaler 2 puff inhalation Q6H PRN (Reason: shortness of breath) potassium chloride [Klor-Con M20] 20 mEq tablet,ER particles/crystals 20 meq PO BID furosemide 20 mg tablet 20 mg PO DAILY dorzolamide 2 % drops 1 drp ophthalmic (eye) BID citalopram 10 mg tablet 10 mg PO DAILY amlodipine 5 mg tablet 5 mg PO DAILY Patient Comments: Take 1 tablet by mouth once daily. bupropion HCl 150 mg tablet sustained-release 12 hr 150 mg PO Q12H Patient Comments: TAKE 1 TABLET BY MOUTH TWICE DAILY atorvastatin 40 mg tablet See Rx Instructions .ROUTE .COMPLEX Qty: 90 3RF Dose Instruction: TAKE 1 TABLET EVERY DAY Rx Instructions: TAKE 1 TABLET EVERY DAY Primary Care Provider: Brian Mckee Chi Referrals: Brian Mckee Chi, MD [Primary Care Provider] -
--- OUTSIDE RECORDS SUMMARY | 2023-12-16 21:06 | XMS RPT_ITS | CCD ---
Author Name Unknown Address [address] [place] [address] Organization [facility] Care Team Providers Care Street Light Servicer Supervisor Name Role Phone Ela Barriga RN Unavailable Unavailable PRISCILLA Gunter, Heather Reynolds Unavailable STUART RONDON Unavailable Unavail able PRISCILLA Gunter, Heather Reynolds Unavailable Brian Mckee Chi Primary Care Provider [phone] SHERMAN GAMINO Admitting Unavailable DERRICK MURPHY Primary Care Unavailable ERNESTINA MATUTE Attending UnavailMITCH [employer] Unavailabl e Allergies Allergy Classification Reported Allergen(s) Allergy Type Date of Onset Reaction(s) Facility (7 sources) lisinopril; Translations: [LISINOPRIL] drug allergy 5 Swelling [facility] Work Phone: (4 sources) Sulfonamides (Antibiotic) drug allergy 2 [facility] Work Phone: (3 sources) Sulfonamides (Antibiotic); Translations: [SULFA (SULFONAMIDE ANTIBIOTICS)] Propensity to adverse reactions to drug (disorder) 6 Hives [facility] Repository Medications Completed/Discontinued Medications Medication Drug Class(es) Dates Sig (Normalized) Sig (Original) [id number] 200 actuat albuterol 0.09 mg/actuat metered dose inhaler (1 source) beta2-Adrenergic Agonist take 2 puff(s) by inhalation every four hours as needed for wheezing albuterol HFA (PROVENTIL HFA, VENTOLIN HFA) 90 mcg/actuation inhaler Inhale 2 Puffs as instructed every 4 hours as needed for wheezing/shortness of breath. 0 Suspended Problems Active Problems Problem Classification Problem Date Documented Date Episodic/Chronic Acute cerebrovascular disease (4 sources) Hematoma of subdural space of neuraxis; Translations: [SDH (subdural hematoma) (HCC)] Onset: 12-05-2023 12-07-2023 Chronic Complication of device; implant or graft (4 sources) Atherosclerosis of coronary artery bypass graft(s) without angina pectoris; Translations: [Atherosclerosis of coronary artery bypass graft(s) without angina pectoris] Onset: 05-12-2016 05-12-2016 Chronic Coronary atherosclerosis and other heart disease (12 sources) Atherosclerotic heart disease of [place] coronary artery without angina pectoris; Translations: [Coronary atherosclerosis] Onset: 12-26-2014 11-04-2016 Chronic Delirium, dementia, and amnestic and other cognitive disorders (1 source) Frailty; Translations: [Age-related physical debility] Onset: 12-06-2023 12-06-2023 Chronic Disorders of lipid metabolism (4 sources) Hyperlipidemia; Translations: [Hyperlipidemia, unspecified] 12-23-2011 Chronic Diverticulosis and diverticulitis (1 source) Diverticulosis of colon; Translations: [Diverticulosis of large intestine without perforation or abscess without bleeding] Onset: 06-14-2006 06-14-2006 Chronic E Codes: Fall (1 source) Fall; Translations: [Unspecified fall, initial encounter] Onset: 12-05-2023 12-05-2023 Episodic Essential hypertension (5 sources) Hypertensive disorder; Translations: [Essential (primary) hypertension] Onset: 12-24-2014 12-24-2014 Chronic Fluid and electrolyte disorders (1 source) Hyponatremia; Translations: [Hypo-osmolality and hyponatremia] Onset: 12-06-2023 12-06-2023 Episodic Prolapse of female genital organs (1 source) Disorder of rectum; Translations: [Rectocele] Onset: 10-10-2006 10-10-2006 Chronic Residual codes; unclassified (1 source) At risk of delirium; Translations: [Other specified personal risk factors, not elsewhere classified] Onset: 12-06-2023 12-06-2023 Episodic Unclassified (4 sources) Retinal defects without detachment; [...] of skin] Onset: 02-23-2012 02-23-2012 Episodic Other and unspecified benign neoplasm (1 source) Benign neoplasm of colon; Translations: [Benign neoplasm of colon, unspecified] Onset: 06-14-2006 06-14-2006 Episodic Other connective tissue disease (4 sources) [...] Phone: 05-29-2017 12:44-0400 Respiratory Rate 16 /min Heather Gunter PA-C [facility] Work Phone: 05-29-2017 12:44-0400 Weight 64.64 kg [facility] Work Phone: 11-24-2016 14:56-0500 BMI (Body Mass Index) 26.79 kg/m2 [facility] Work Phone: 11-24-2016 14:56-0500 BP Diastolic 64 mm[Hg] Heather Gunter PA-C [facility] Work Phone: 11-24-2016 14:56-0500 BP Systolic 120 mm[Hg] [facility] Work Phone: 11-24-2016 14:56-0500 BSA (Body Surface Area) 1.68 m2 Heather Gunter PA-C [facility] Work Phone: 11-24-2016 14:56-0500 Pulse (Heart Rate) 76 /min Heather Gunter PA-C [facility] Work Phone: 11-24-2016 14:56-0500 Respiratory Rate 20 /min Heather Gunter PA-C [facility] Work Phone: 11-24-2016 14:56-0500 Weight 66.45 kg PR[facility]CILL[facility] Work Phone: 12-26-2014 16:03-0500 Heart rate 74 /min [facility]CILL[facility] Work Phone: 12-26-2014 15:06-0500 Height 157.48 cm [facility]CILL[facility] Work Phone: 01-23-2012 10:59-0400 Body Temperature 98.2 [degF] [facility] Work Phone: Encounters Encounter Date Encounter Type Care Provider Facility Start: 12-07-2023 Orders Only Sanket arshad PA-C Work Phone: [place] PROVIDER ADULT Procedures Date Procedure Procedure Detail Performing Clinician Start: 05-29-2017 End: 05-29-2017 *BMP Heather Gunter PA-C Work Phone: Start: 05-29-2017 End: 05-29-2017 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 Heather Gunter PA-C Work Phone: Start: 05-29-2017 [...] End: 11-17-2015 Follow Up Appt 6 months Gial Grimm Start: 11-17-2015 End: 11-17-2015 JUAN PABLO Rowland MD Start: 05-12-2015 End: 05-12-2015 MARINA Gunter PA-C Work Phone: Start: 05-12-2015 End: 05-13-2015 Documentation of current medications Heather Gunter PA-C Work Phone: Start: 05-12-2015 End: 05-12-2015 Follow Up Appt 6 months Heather gregorio PA-C Work Phone: Start: 02-06-2015 End: 02-07-2015 Documentation of current medications Ivan Rowland MD Start: 02-06-2015 End: 02-06-2015 Follow Up Appt 3 months Gail Grimm Start: 02-06-2015 End: 02-06-2015 MMM Ivan Rowland MD Start: 12-26-2014 End: 12-26-2014 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 Ivan Rowland MD Start: 12-26-2014 End: 12-27-2014 Documentation of current medications Ivan Rowland MD Start: 12-26-2014 End: 01-05-2015 Echocardiography Ivan Rowland MD Start: 12-26-2014 End: 12-26-2014 Electrocardiogram, complete Ivan Mercado i, MD Start: 12-26-2014 End: 12-26-2014 Follow Up Appt 6 weeks Ivan Rowland MD Start: 12-26-2014 End: 01-05-2015 Nuclear stress test -Lexiscan Ivan Brasher MD Plan of Treatment Date Care Activity Detail Author Start: 12-06-2027 Urine microalbumin profile DTaP,Tdap,Td Vaccine (3 - Td or Tdap) [facility] Start: 12-07-2026 Diabetes Screening Diabetes Screening [facility] Start: 11-06-2023 Advance Directive Discussion Advance Directive Discussion [facility] Start: 11-06-2023 Depression Assessment Depression Assessment [facility] Start: 11-28-2017 End: 11-28-2017 Appointment Appointment [facility] Work Phone: Start: 05-29-2017 End: 05-29-2017 Appointment Appointment [facility] Work Phone: Start: 05-29-2017 End: 05-29-2017 *BMP *BMP [facility] Work Phone: Start: 05-29-2017 End: 05-29-2017 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 [facility] Work Phone: Start: 05-29-2017 End: 05-29-2017 Follow Up Appt 6 months Follow Up Appt 6 months [facility] Work Phone: Start: 05-29-2017 End: 05-29-2017 Magnesium *Magnesium [facility] Work Phone: Start: 05-29-2017 End: 05-29-2017 Nuclear stress test -exercise Nuclear stress test -exercise [facility] Work Phone: Start: 11-24-2016 End: 11-24-2016 Follow Up Appt 6 months Follow Up Appt 6 months [facility] Work Phone: Start: 11-24-2016 End: 11-24-2016 MMM MMM [facility] Work Phone: Start: 06-21-2016 End: 06-21-2016 Follow Up BP Check Follow Up BP Check [facility] Work Phone: Start: 05-19-2016 End: 05-19-2016 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 [facility] Work Phone: Start: 05-19-2016 End: 05-19-2016 Follow Up Appt 6 months Follow Up Appt 6 months [facility] Work Phone: Start: 05-19-2016 End: 05-19-2016 Follow Up BP Check Follow Up BP Check [facility] Work Phone: Start: 11-17-2015 End: 11-17-2015 Follow Up Appt 6 months Follow Up Appt 6 months [facility] Work Phone: Start: 11-17-2015 End: 11-17-2015 MMM MMM [facility] Work Phone: Start: 05-12-2015 End: 05-12-2015 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 [facility] Work Phone: Start: 05-12-2015 End: 05-12-2015 Follow Up Appt 6 months Follow Up Appt 6 months [facility] Work Phone: Start: 02-06-2015 End: 02-06-2015 Follow Up Appt 3 months Follow Up Appt 3 months [facility] Work Phone: Start: 02-06-2015 End: 02-06-2015 MMM MMM [facility] Work Phone: Start: 12-26-2014 End: 12-26-2014 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 [employer] Work Phone: Start: 12-26-2014 End: 12-26-2014 Echocardiography Echocardiogram (complete) [facility] Work Phone: Start: 12-26-2014 End: 12-26-2014 Electrocardiogram, complete EKG (In office) [facility] Work Phone: Start: 12-26-2014 End: 12-26-2014 Follow Up Appt 6 weeks Follow Up Appt 6 weeks [facility] Work Phone: Start: 12-26-2014 End: 12-26-2014 Nuclear stress test -Lexiscan Nuclear stress test -Lexiscan [facility] Work Phone: Start: 2000 Pneumococcal Vaccine: 65+ (1 of 1 - PCV) Pneumococcal Vaccine: 65+ (1 of 1 - PCV) [facility] Start: 1995 RSV Vaccine (1 - 1-dose 60+ series) RSV Vaccine (1 - 1-dose 60+ series) [facility] Start: 1985 Shingrix Vaccine (1 of 2) Shingrix Vaccine (1 of 2) [facility] End: 01-05-[address]RAIN WO IVCON CT BRAIN WO IVCON Radiology Routine SDH (subdural hematoma) (HCC) 1 Occurrences starting 12/07/2023 until 01/05/2025 [facility] Work Phone: Payers Date Payer Category Payer Medicare HUMANA MEDICARE HUMANA MEDICARE PPO [id number] 2019-Present [id number] [place] [id number] PPO 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 Utilities [facility] Work Phone: Has the [employer], [employer], or water company threatened to shut off services in your home in past 12Mo No [facility] Work Phone: How hard is it for y ou to pay for the very basics like food, housing, medical care, and heating Not hard at all [facility] Work Phone: (I/We) worried wheth er (my/our) food would run out before (I/we) got money to buy more. Never true [facility] Work Phone: Start: 1935 Sex Assigned At Not on file C [facility] Medical Equipment Procedure Code Equipment Code Equipment Origin al Text Equipment Identifier Dates Particles Trufil l Nbca Embolization Kit Liquid System 1gm - [id number] Start: 12-06-2023 Device Angio-Sea l Vip 6fr .035in Collagen 70cm Closure Valuelink Guidewire - [id number] Start: 12-06-2023 Clinical Notes 12-05-2023 to 12-08-2023 Note Date & Type Note Facility 12-08-2023 Note HNO ID: [id number] Author: ZENY LAND, MARLY Service: Care Management Author Type: Registered Nurse Type: Care Mgt Progress Note Filed: 12/08/2023 11:14 Note Text: CARE MANAGEMENT DISCHARGE NOTE SERVICE DATE: December 08, 2023 SERVICE TIME: 11:13 AM Admission Date: 12/04/2023 LOS: 3 days Discharge Arrangement Discharge Arrangement: Home with Home Health Services Arranged Medical Services: Skilled Home Health Care Type: Assisted, Physical Therapy, Occupational Therapy Provider Name: Dr. Mckee Caregiver Assessment Caregiver is ready, willing and able to meet the patient's needs as recommended by the inter-professional team: Yes Name of Caregiver: Essence Transportation Arrangements Transportation Arrangements: Car Destination: home Handoff Communication: Handoff to: Primary Care Physician Primary Care Physician Name/Phone: Dr. Mckee [phone] Additional Information: The patient will dc to home today with family to transport. [facility] agency will reach out to patient to resume [facility] services for PT/OT/SN. Her family will drive her home today. Discharge Information Row Name ED to Hosp-Admission (Current) from 12/04/[address] GENERAL SURGERY Home Health Care Agency [facility] Start of Care -- The agency will contact you to arrange the next home care visit. SIGNATURE: Zeny Land RN PATIENT NAME: Vonda Brown DATE: December 08, 2023 TIME: 11:13 AM CONTACT #: [phone] [facility] 12-08-2023 Note HNO ID: [id number] Author: MAX SYED DO Service: General Surgery Author Type: Resident Type: Progress Notes Filed: 12/08/2023 09:17 Note Text: Documentation Query Based on your medical judgment of the clinical indicators outlined below, please clarify the condition: (Please type X next to your response and sign) Clinical Indicators: 12/04/23 20:33 12/05/23 04:40 12/06/23 00:28 12/07/23 05:25 12/07/23 08:13 12/07/23 18:09 Potassium 3.9 3.4 3.7 2.9 2.9 3.7 Treatment: 12/05 treated with 20mEQ KCL IV 0624, 0929, and 1200 12/07 treated with 20mEQ KCL IV 0746, 0955, and 1207 Please clarify the diagnosis associated with the above clinical indicators: x Hypokalemia Other, please specify [facility] 12-07-2023 Note HNO ID: [id number] Author: SAAD WHITE RN Service: ? Author Type: Registered Nurse Type: Nursing Progress Note Filed: 12/07/2023 20:40 Note Text: Other: Transfer to [facility] via bed. Pt stable AND satisfactory condition. [facility] 12-07-2023 Note HNO ID: [id number] Author: SAAD WHITE RN Service: ? Author Type: Registered Nurse Type: Nursing Progress Note Filed: 12/07/2023 18:55 Note Text: Other: Report called to Janet Nuñez RN. Room not clean. [facility] 12-07-2023 Note HNO ID: [id number] Author: SAAD WHITE RN Service: ? Author Type: Registered Nurse Type: Nursing Progress Note Filed: 12/07/2023 11:03 Note Text: Other: Break report from Debbie to Gail White RN [facility] 12-07-2023 Note HNO ID: [id number] Author: SANKET AVILA PA-C Service: Neurosurgery Author Type: Physician Sales And Production Manager Type: Progress Notes Filed: 12/07/2023 11:14 Note Text: Neurosurgery Progress Note SERVICE DATE: 12/07/2023 SUBJECTIVE: Awake and alert this am. Naeon. C/o headache pretty significant . Denies dizziness, n/v. OBJECTIVE: Vitals: Temp (24hrs), Av.1 ?C (97 ?F), Min:36 ?C (96.8 ?F), Max:36.3 ?C (97.3 ?F) BP 149/65 Pulse (!) 53 Temp 36.3 ?C (97.3 ?F) (Temporal) Resp 20 Ht 157.5 cm (5' 2 ) Wt 64.6 kg (142 lb 6.7 oz) SpO2 96% BMI 26.05 kg/m? O2 Therapy: Room Air IANDO: Date 12/06/23699 - 12/07/2365812/07/23699 - 12/08/23 0659 Shift 6554-4565 0069-9075 5100-3437 24 Hour Total 3145-7930 4829-7365 8160-7253 24 Hour Total INTAKE PO 240 240 480 PO 240 240 480 IV 1000 932 083 5155 OR Crystalloid intake (mL) 600 600 Volume (mL) (NaCl 0.9% iv infusion) 723 002 3303 Volume (mL) (lactated ringers iv infusion) 400 400 Other 110 110 OR 110 110 Shift Total 1110 899 457 0976 OUTPUT Urine 500 091 189 2523 Output ( Indwelling Urinary Catheter 12/06/23 1215 Stanley) 500 076 942 6823 Blood 10 10 Estimated Blood loss 10 10 Shift Total 510 058 448 7428 Weight (kg) 64.6 64.6 64.6 64.6 64.6 64.6 64.6 64.6 MEDICATIONS Current Facility-Administered Medications Medication Dose Route Frequency potassium chloride iv piggyback 20 mEq/100 mL 20 mEq INTRAVENOUS q 1 H sodium chloride 1 g tab(s) 1 g ORAL TID senna-docusate 8.6-50 mg 1 tablet (SENNA-S) 1 tablet ORAL BID melatonin 6 mg tab(s) 6 mg ORAL DAILY (8 PM) hydrALAZINE 10 mg injection (APRESOLINE) 10 mg INTRAVENOUS q 1 H PRN atorvastatin 20 mg tab(s) (LIPITOR) 20 mg ORAL DAILY metoprolol succinate ER 50 mg tab(s) (TOPROL XL) 50 mg ORAL DAILY amLODIPine 5 mg tab(s) (NORVASC) 5 mg ORAL DAILY citalopram hydrobromide 10 mg tablet (CeleXA) 10 mg ORAL DAILY acetaminophen 975 mg tab(s) (TYLENOL) 975 mg ORAL QID oxyCODONE IR 2.5 mg tab(s) (ROXICODONE) 2.5 mg ORAL q [address] 40 mg tab(s) (PROTONIX) 40 mg ORAL DAILY (6 AM) NaCl 0.9% iv infusion 75 mL/hr INTRAVENOUS CONTINUOUS NaCl 0.9% iv flush bag 20 mL INTRAVENOUS PRN Labs: Recent Labs 12/07/23 0813 12/07/23 0525 12/06/23 0028 12/05/23 0440 12/04/232032 NA 125* 126* 126* < > 131* K 2.9* 2.9* 3.7 < > 3.9 CHLOR 96* 95* 97 < > 97 CO2 17* 18* 19* < > 23 BUN 6* 7 9 < > 10 CREAT 0.55* 0.54* 0.58 < > 0.70 GLUC 94 95 92 < > 108* ANION 12 13 10 < > 11 CA 8.1* 8.3* 8.3* < > 8.9 WBC -- 8.43 8.25 < > 6.26 HB -- 11.7 12.8 < > 12.2 HCT -- 33.9* 38.3 < > 37.0 PLT -- 291 299 < > 280 INR -- -- -- -- 1.0 < > = values in this interval not displayed. Exam: GENERAL: Awake and alert; NAD; cooperative; pleasant; [place] NEURO: Orientedx3; speech clear and fluent; PLUMMER STRENGTH: no particular deficits HEENT: Normocephalic; atraumatic; perrl/eomi; no facial droop LUNGS: Unlabored breathing ASSESSMENT AND PLAN: 88 year old female p/w dizziness, unsteady gait and frequent falls, found to have large Rt frontoparietal mixed density SDH. - Neuro as above - stable - s/p rt MMA embolization yesterday - CTH this am stable; CTHx4; MRIBx1 - pain control - Tylenol and Oxy prn - ok for transfer back to [facility] - PT/OT - f/u 4 wks with scan - will request with Dr. Alberts - will SO - plz call with questions or concerns Parts of this note may have been copied from one of my previous notes and remain pertinent. The documentation has been reviewed and edited as necessary to support the clinical decision making for today's visit. SIGNATURE: Sanket Avila PA-C PATIENT NAME: Vonda Brown DATE: December 07, 2023 TIME: 10:35 AM Pager: [phone] [facility] 12-07-2023 Note HNO ID: [id number] Author: ERNESTINA MATUTE MD Service: General Surgery Author Type: Physician Type: Progress Notes Filed: 12/07/2023 10:14 Note Text: Trauma Surgery Progress Note SERVICE DATE: 12/07/2023 Trauma Service Pager: For questions or concerns Mon-Fri 6a-5p please page [phone]. After 5pm and on Weekends and Holidays, please page [phone] if in ICU or [phone] if on [facility]. SUBJECTIVE: Patient is s/p MMA embolization. Remains in PACU overnight. No acute issues overnight. Her hearing aids and she is having a hard time hearing. She endorses some headache. No motor or sensory changes. OBJECTIVE: Vitals: Temp (24hrs), Av.1 ?C (97 ?F), Min:36 ?C (96.8 ?F), Max:36.4 ?C (97.5 ?F) BP 140/56 Pulse (!) 56 Temp 36 ?C (96.8 ?F) Resp 14 Ht 157.5 cm (5' 2 ) Wt 64.6 kg (142 lb 6.7 oz) SpO2 93% BMI 26.05 kg/m? O2 Therapy: Room Air IANDO: Date 12/06/23699 - 12/07/2365812/07/23699 - 12/08/23 0659 Shift 1059-7026 6669-6180 8674-5289 24 Hour Total 1718-0060 2203-8786 1070-9175 24 Hour Total INTAKE PO 240 240 480 PO 240 240 480 IV 1000 231 727 1461 OR Crystalloid intake (mL) 600 600 Volume (mL) (NaCl 0.9% iv infusion) 531 374 2634 Volume (mL) (lactated ringers iv infusion) 400 400 Other 110 110 OR 110 110 Shift Total 1110 228 305 4586 OUTPUT Urine 500 976 649 2663 Output ( Indwelling Urinary Catheter 12/06/23 1215 Stanley) 500 585 543 1525 Blood 10 10 Estimated Blood loss 10 10 Shift Total 510 314 546 1448 Weight (kg) 64.6 64.6 64.6 64.6 64.6 64.6 64.6 64.6 MEDICATIONS: Current Facility-Administered Medications Medication Dose Route Frequency potassium chloride iv piggyback 20 mEq/100 mL 20 mEq INTRAVENOUS q 1 H sodium chloride 1 g tab(s) 1 g ORAL TID senna-docusate 8.6-50 mg 1 tablet (SENNA-S) 1 tablet ORAL BID melatonin 6 mg tab(s) 6 mg ORAL DAILY (8 PM) hydrALAZINE 10 mg injection (APRESOLINE) 10 mg INTRAVENOUS q 1 H PRN atorvastatin 20 mg tab(s) (LIPITOR) 20 mg ORAL DAILY metoprolol succinate ER 50 mg tab(s) (TOPROL XL) 50 mg ORAL DAILY amLODIPine 5 mg tab(s) (NORVASC) 5 mg ORAL DAILY citalopram hydrobromide 10 mg tablet (CeleXA) 10 mg ORAL DAILY acetaminophen 975 mg tab(s) (TYLENOL) 975 mg ORAL QID oxyCODONE IR 2.5 mg tab(s) (ROXICODONE) 2.5 mg ORAL q [address] 40 mg tab(s) (PROTONIX) 40 mg ORAL DAILY (6 AM) NaCl 0.9% iv infusion 75 mL/hr INTRAVENOUS CONTINUOUS NaCl 0.9% iv flush bag 20 mL INTRAVENOUS PRN Labs: Recent Labs 12/07/23 0525 12/06/23 0028 12/05/23 0440 12/04/232032 NA 126* 126* < > 131* K 2.9* 3.7 < > 3.9 CHLOR 95* 97 < > 97 CO2 18* 19* < > 23 BUN 7 9 < > 10 CREAT 0.54* 0.58 < > 0.70 GLUC 95 92 < > 108* ANION 13 10 < > 11 CA 8.3* 8.3* < > 8.9 WBC 8.43 8.25 < > 6.26 HB 11.7 12.8 < > 12.2 HCT 33.9* 38.3 < > 37.0 PLT 291 299 < > 280 INR -- -- -- 1.0 < > = values in this interval not displayed. PHYSICAL EXAM: Genl: Appears age appropriate. No acute distress. Resting comfortably. Head/Face: Normocephalic. Atraumatic Eyes: EOMI. Sclera not icteric, not injected. Bruising noted to bilateral orbits. Resp: Lungs CTAB. No wheezes, rales or rhonchi. Respiratory status stable on RA. CVS: RR as above. GI: Abdomen is soft, non-tender, non-distended. No guarding or peritoneal signs. MSK: No gross deformities. No clubbing, cyanosis or edema. Normal AROM x 4. Skin: Warm and dry. Not jaundiced. Neuro: Strength and sensation grossly intact in all extremities. PLUMMER. Psych: Normal mood. Normal affect. Appropriate insight into current situation. ASSESSMENT AND PLAN: Assessment Active Hospital Problems Diagnosis Date Noted Hyponatremia 12/06/2023 At risk for delirium 12/06/2023 HTN (hypertension) 12/06/2023 Frailty syndrome in geriatric patient 12/06/2023 Subdural hematoma (HCC) 12/05/2023 Fall 12/05/2023 Assessment: 88-year old female s/p ground level fall approximately 2 weeks ago Imaging performed: CT brain, CXR, PXR (12/04) CT brain (12/05) Traumatic Injuries: Large right superior cerebral hemispheric subdural hemorrhage measuring 1.9 cm x 10.4 cm. Subdural has caused mild leftward midline shift of 3.9 mm. Operations/Procedures: 1. None Care Plan: SDH NSGY and NIL following, appreciate recommendations Received DDAVP for ASA reversal in ED (12/04) Repeat CT brain (12/05): Stable appearance of SDH NIL 12/06 for embolization R middle meningeal artery Post-procedure CT H stable with no significant change NSICU following SBP goal 100-160 systolic PRN hydralazine/labetalol Hold chemo prophylaxis PT/OT/ADOBE BLOCK MAKER - pending Follow-up in 4 weeks with NSGY with repeat imaging Hyponatremia Na 131 -> 129 -> 126 > 126 Received DDAVP for ASA reversal in ED (12/04) Salt tabs 1g TID On NS IVF Trend daily BMP Geriatrics consulted, appreciate recommendations Continue home medications as ordered Current diet order: DIET REGULAR Pain regimen: Sche (more content not included)... [facility] 12-06-2023 Note HNO ID: [id number] Author: CHRISTA TROTTER RN Service: Nursing Author Type: Registered Nurse Type: Nursing Progress Note Filed: 12/06/2023 21:09 Note Text: Halie Lee aware of EKG QT results, ok to give IV zofran [facility] 12-06-2023 Note HNO ID: [id number] Author: CHRISTA TROTTER RN Service: Nursing Author Type: Registered Nurse Type: Nursing Progress Note Filed: 12/06/2023 21:07 Note Text: Spoke with Halie Marks Neuro ENOLOGIST, ok for patient to take po meds with sips of water [facility] 12-06-2023 Note HNO ID: [id number] Author: JIMBO BRITO, NURSE ANESTHESIA PROGRAM DIRECTOR.VERIFIER Service: Anesthesiology Author Type: Nurse Orthopedic Nurse Practitioner Type: Anesthesia Procedure Notes Filed: 12/06/2023 12:28 Note Text: ANESTHESIOLOGY PROCEDURE NOTE Airway General Information Procedure Start Time/Medication Administration: 12/06/2023 12:09 PM Procedure End Time: 12/06/2023 12:11 PM Patient location during procedure: OR Timeout Performed Pre-procedure: timeout performed Consent Obtained: Yes Patient identity confirmed: arm band Staffing VERIFIER: Jimbo Brito APRN.VERIFIER Performed by: DAISY Indications and Patient Condition Indications for airway management: anesthesia Preoxygenated: yes anesthesia circuit Method: asleep Difficult Mask: No Final Airway Details Final airway type: endotracheal airway Final Endotracheal Airway: ETT Cuffed: yes Successful intubation technique: direct laryngoscopy Devices used: intubating stylet Endotracheal tube insertion site: oral Blade: Adiel Blade size: #3 ETT size (mm): 7.0 Measured from: lips Measurement (cm): 20 Placement verified by: chest auscultation and capnometry Cormack-Lehane Classification: grade I - full view of glottis Number of attempts at approach: 1 Airway not difficult SIGNATURE: Jimbo Brito APRN.CRNA PATIENT NAME: Vonda Brown DATE: December 06, 2023 TIME: 12:25 PM CSN: [id number] [facility] 12-06-2023 Note HNO ID: [id number] Author: SONAM TUTTLE RN Service: Care Management Author Type: Registered Nurse Type: Care Mgt Initial Assessment Filed: 12/06/2023 13:05 Note Text: CARE MANAGEMENT: ASSESSMENT AND DISCHARGE PLAN SERVICE DATE: December 06, 2023 SERVICE TIME: 12:17 PM PCP: Brian Mckee MD (Confirmed with patient) Primary Contact: Extended Emergency Contact Information Primary Emergency Contact: ESSENCE SKY Mobile Relation: Grandchild Secondary Emergency Contact: CaseyGonsalo gatica Sr Mobile Relation: Spouse Admission Status: Inpatient Insurance Provider: [employer] MEDICARE PPO Discharge Planning requested by: Per Department Practice Potential Transition Plans To Be Determined Advance Directives Current Advance Directive: Health Care Power of Speed Operator;Living Will In Chart: No Encouraged patient's family to bring in copies of her advance directives Current Living Arrangements and Support Lives with: Children, Family members Type of Residence: Private Residence (House) Does the patient have to climb stairs at home?: No Support: Family members, Home care staff How do you manage to accomplish the following: Needs Assistance: Ambulation;Bathe/Shower;Dress;Meals/Myrna l Prep;Going to the bathroom;Medication Management;Transportation to appointments/community Current Services/Equipment Current Post-Acute Service(s): Skilled Home Care, DME Current DME Type: Walker, Cane, Shower seat Discharge Planning Patient Goal(s): General wellness, Increase strength Grand Cane of Choice Explained: Grand Cane of Choice Given: No Reason Not Given: No placements necessary at this time. Will follow. Are you interested in bedside delivery of your medications? Yes Discharge Planning Participant(s): Patient;Family Caregiver Assessment: Caregiver is ready, willing and able to meet the patient's needs as recommended by the inter-professional team: Yes Name of Caregiver: Essence, grandasim Transport at Discharge: Transportation Arrangements: To Be Determined Needs Prior to Discharge: Needs Prior to Discharge: To Be Determined;OT/PT Evaluation Post-Acute Discharge Plan: Chart reviewed. S/p fall. SDH. Spoke with patient and patient's granddaughter Essence. Explained care management role. Patient resides at home with her granddaughter Essence, daughter Franchesca and great granddaughter. One level home with ramp in place. Patient at baseline requires assistance with all personal care and IADLs. Utilizes a walker for ambulation. Patient is active with [facility] for home therapy services. PT/OT evaluation pending. Will follow clinical course for transitional/discharge planning needs. SIGNATURE: Sonam Tuttle RN PATIENT NAME: Vonda Brown DATE: December 06, 2023 TIME: 12:17 PM CONTACT #: [id number] [facility] 12-06-2023 Note HNO ID: [id number] Author: MARKUS ORTIZ MD Service: Neuroendovascular Intervention Author Type: Physician Type: Progress Notes Filed: 12/06/2023 11:51 Note Text: Update: Discussed with the family and the patient that the patient will need to have her DNA - CCA reversed to full code. Patient and family in agreement. Markus Ortiz MD. Neuro Interventional Surgery December 06, 2023 [facility] 12-06-2023 Note HNO ID: [id number] Author: MARKUS ORTIZ MD Service: Neuroendovascular Intervention Author Type: Physician Type: Progress Notes Filed: 12/06/2023 11:50 Note Text: Update: Patient seen and examined. Alert and following commands with no drift in the UEs or LEs. - CT reviewed with right sided subdural collection. Neurosurgery requesting right sided MMA embolization. Will proceed with procedure. After discussing the nature of the procedure the Diagnostic Cerebral Angiogram with the intent to perform right sided MMA embolization with liquid embolics versus coils versus particles (PVA) and all the related necessary procedures including possible coiling, stenting, embolization and mechanical and/or chemical thrombectomy with the patient and the patient's family. The nature of the patient's condition, the nature and purpose of the procedure, anticipated benefits, possible alternative methods of treatment, known risks involved in either the procedure or of not having the procedure, if any, and possible consequences and complications have been explained. The risks including but not limited to: Bleeding, groin hematoma, infection, injury to femoral or radial artery, loss of leg or arm, retroperitoneal bleeding, stroke, seizure, head bleed, coma, , myocardial infarction, renal dysfunction, aortic dissection, rupture of cerebral aneurysm or cerebral blood vessel resulting in brain bleed and , recurrence, residual and inability to do the procedure. The patient and the patient's family agreed to move forward with the procedure and the consent form was signed by the patient. All questions were answered. Markus Ortiz MD. Neuro Interventional Surgery December 06, 2023 [facility] 12-06-2023 Note HNO ID: [id number] Author: FELECIA STEVENS APRN.DEPUTY CHIEF MAGISTRATE Service: General Surgery Author Type: Nurse Practitioner Type: Progress Notes Filed: 12/06/2023 08:57 Note Text: Trauma Surgery Progress Note SERVICE DATE: 12/06/2023 Trauma Service Pager: For questions or concerns Mon-Fri 6a-5p please page [phone]. After 5pm and on Weekends and Holidays, please page [phone] if in ICU or [phone] if on RNF. SUBJECTIVE: No acute overnight events. Patient is alert and oriented x 3, FC, PLUMMER. No focal deficits. She denies vision changes, headache, dizziness/lightheadedness, numbness/tingling. OBJECTIVE: Vitals: Temp (24hrs), Av.5 ?C (97.7 ?F), Min:36.4 ?C (97.5 ?F), Max:36.6 ?C (97.9 ?F) BP 151/72 Pulse (!) 55 Temp 36.4 ?C (97.5 ?F) (Oral) Resp 18 Ht 157.5 cm (5' 2 ) Wt 64.6 kg (142 lb 6.7 oz) SpO2 99% BMI 26.05 kg/m? O2 Therapy: Room Air IANDO: Date 12/05/23 07 - 12/06/23 0659 12/06/23699 - 12/07/23 0659 Shift 6722-7928 1269-1097 2467-1650 24 Hour Total 0703-1279 9617-8653 8620-2570 24 Hour Total INTAKE IV 300 300 Volume (mL) (potassium chloride iv piggyback 20 mEq/100 mL) 300 300 Shift Total 300 300 OUTPUT Urine 300 100 400 Urine Incontinence/Not Saved 1 x 1 x Urine Not Saved. 1 x 1 x Output ( External Collection Device 12/05/23 1500) 300 100 400 # of BMs Number of BMs 1 x 1 x Shift Total 300 100 400 Weight (kg) 64.6 64.6 64.6 64.6 64.6 64.6 64.6 MEDICATIONS: Current Facility-Administered Medications Medication Dose Route Frequency atorvastatin 20 mg tab(s) (LIPITOR) 20 mg ORAL DAILY metoprolol succinate ER 50 mg tab(s) (TOPROL XL) 50 mg ORAL DAILY amLODIPine 5 mg tab(s) (NORVASC) 5 mg ORAL DAILY citalopram 10 mg tab(s) (CeleXA) 10 mg ORAL DAILY acetaminophen 975 mg tab(s) (TYLENOL) 975 mg ORAL QID oxyCODONE IR 2.5 mg tab(s) (ROXICODONE) 2.5 mg ORAL q [address] 40 mg tab(s) (PROTONIX) 40 mg ORAL DAILY (6 AM) NaCl 0.9% iv infusion 75 mL/hr INTRAVENOUS CONTINUOUS NaCl 0.9% iv flush bag 20 mL INTRAVENOUS PRN Labs: Recent Labs 12/06/23 0028 12/05/23 0440 12/04/232032 NA 126* 129* 131* K 3.7 3.4* 3.9 CHLOR 97 95* 97 CO2 19* 25 23 BUN 9 12 10 CREAT 0.58 0.75 0.70 GLUC 92 118* 108* ANION 10 9 11 CA 8.3* 8.8 8.9 WBC 8.25 8.47 6.26 HB 12.8 12.3 12.2 HCT 38.3 36.5 37.0 PLT 299 298 280 INR -- -- 1.0 PHYSICAL EXAM: Genl: Appears age appropriate. No acute distress. Resting comfortably. Head/Face: Normocephalic. Atraumatic Eyes: EOMI. PERRLA. Sclera not icteric, not injected. Bruising noted to bilateral orbits. Neck: No mid-line masses. C-spine non-tender. Back: No midline tenderness, step-offs or deformities. Resp: Lungs CTAB. No wheezes, rales or rhonchi. Respiratory status stable on RA. CVS: RRR as above. 2+ RA, DP, PT pulses bilaterally. GI: Abdomen is soft, non-tender, non-distended. No guarding or peritoneal signs. MSK: No gross deformities. No clubbing, cyanosis or edema. Normal AROM x 4. Skin: Warm and dry. Not jaundiced. Neuro: AANDOx3. Strength and sensation grossly intact in all extremities. PLUMMER. GCS15. Psych: Normal mood. Normal affect. Appropriate insight into current situation. ASSESSMENT AND PLAN: Assessment Active Hospital Problems Diagnosis Date Noted Subdural bleeding (HCC) 12/05/2023 Subdural hematoma (HCC) 12/05/2023 Fall 12/05/2023 Assessment: 88-year old female s/p ground level fall approximately 2 weeks ago Imaging performed: CT brain, CXR, PXR (12/04) CT brain (12/05) Traumatic Injuries: Large right superior cerebral hemispheric subdural hemorrhage measuring 1.9 cm x 10.4 cm. Subdural has caused mild leftward midline shift of 3.9 mm. Operations/Procedures: 1. None Care Plan: SDH NSGY consulted, appreciate recommendations NIL consulted for MMA embolization Received DDAVP for ASA reversal in ED (12/04) Repeat CT brain (12/05): Stable appearance of SDH Repeat CT brain if acute neurologic change Neuro checks every 4 hours Hold chemo prophylaxis PT/OT/ADOBE BLOCK MAKER Follow-up in 4 weeks with NSGY with repeat imaging Hyponatremia Na 131 -> 129 -> 126 Received DDAVP for ASA reversal in ED (1/29) Start salt tablets Trend daily BMP Geriatrics consulted, appreciate recommendations Continue home medications as ordered Current diet order: DIET NPO Pain regimen: Scheduled Tylenol, PRN Oxycodone Bowel regimen: Senna-S Labs: Daily BMP, CBC PPX: DVT: SCDs, mobilize Ulcer: Home Pantoprazole Vit D level if > 65 yo: Pending Consulted Services: NSGY NIL Geriatrics PT/OT ADOBE BLOCK MAKER Dispo Planning: PT/OT recommendations pending. Case management following. Incidentals: Severe right otomastoiditis Follow Up Needs: NSGY in 4 weeks INPATIENT ATTENDING: Dr. Matute High-Risk Geriatric Patient Vulnerabilities: Age >85, Delirium Risk, and Impaired Mobility Diet: DIET NPO Code Status: DNR-CCA, DNI Recommendations: Cognition: No Cognitiv (more content not included)... [facility] 12-06-2023 Note HNO ID: [id number] Author: TAYLA REARDON PA-C Service: Neurosurgery Author Type: Physician Sales And Production Manager Type: Progress Notes Filed: 12/06/2023 08:52 Note Text: Neurosurgery Progress Note SERVICE DATE: 12/06/2023 SUBJECTIVE: NAEON. Patient denies complaints of headache, n/v. OBJECTIVE: Vitals: Temp (24hrs), Av.6 ?C (97.8 ?F), Min:36.4 ?C (97.6 ?F), Max:36.6 ?C (97.9 ?F) BP 131/68 Pulse 61 Temp 36.6 ?C (97.9 ?F) (Oral) Resp 18 Ht 157.5 cm (5' 2 ) Wt 64.6 kg (142 lb 6.7 oz) SpO2 100% BMI 26.05 kg/m? O2 Therapy: Room Air IANDO: Date 12/05/23699 - 12/06/2365812/06/23699 - 12/07/23 0659 Shift 4736-6501 7848-5097 9525-1453 24 Hour Total 7686-0851 7365-6261 7924-9041 24 Hour Total INTAKE IV 300 300 Volume (mL) (potassium chloride iv piggyback 20 mEq/100 mL) 300 300 Shift Total 300 300 OUTPUT Urine 300 100 400 Urine Incontinence/Not Saved 1 x 1 x Urine Not Saved. 1 x 1 x Output ( External Collection Device 12/05/23 1500) 300 100 400 # of BMs Number of BMs 1 x 1 x Shift Total 300 100 400 Weight (kg) 64.6 64.6 64.6 64.6 64.6 64.6 64.6 MEDICATIONS Current Facility-Administered Medications Medication Dose Route Frequency atorvastatin 20 mg tab(s) (LIPITOR) 20 mg ORAL DAILY metoprolol succinate ER 50 mg tab(s) (TOPROL XL) 50 mg ORAL DAILY amLODIPine 5 mg tab(s) (NORVASC) 5 mg ORAL DAILY citalopram 10 mg tab(s) (CeleXA) 10 mg ORAL DAILY acetaminophen 975 mg tab(s) (TYLENOL) 975 mg ORAL QID oxyCODONE IR 2.5 mg tab(s) (ROXICODONE) 2.5 mg ORAL q [address] 40 mg tab(s) (PROTONIX) 40 mg ORAL DAILY (6 AM) NaCl 0.9% iv infusion 75 mL/hr INTRAVENOUS CONTINUOUS NaCl 0.9% iv flush bag 20 mL INTRAVENOUS PRN Labs: Recent Labs 12/06/23 0028 12/05/23 0440 12/04/23 2033 NA 126* 129* 131* K 3.7 3.4* 3.9 CHLOR 97 95* 97 CO2 19* 25 23 BUN 9 12 10 CREAT 0.58 0.75 0.70 GLUC 92 118* 108* ANION 10 9 11 CA 8.3* 8.8 8.9 WBC 8.25 8.47 6.26 HB 12.8 12.3 12.2 HCT 38.3 36.5 37.0 PLT 299 298 280 INR -- -- 1.0 Exam: GENERAL: Awake and alert; NAD; cooperative; pleasant NEURO: Orientedx3; speech clear and fluent; left arm drift STRENGTH: 5/5 throughout with exception of 4+/5 LUE HEENT: Normocephalic; atraumatic; perrl/eomi; no facial droop LUNGS: Unlabored breathing CARDIAC: Rate and rhythm as above ABDOMEN: Soft, non-tender, non-distended EXTREMITIES: No deformities, No edema SKIN: Skin color normal; Temperature normal; no rashes or lesions ASSESSMENT AND PLAN: Vonda Brown is a 88 year old female presenting with dizziness, unsteady gait and frequent falls, found to have R frontoparietal mixed density SDH. -Neuro as above -Imaging: NNI; stable rCTH performed yesterday -Patient would benefit from MMA embolization; c/s to neuroendovascular -Plan for outpatient neurosurgical follow up in 4 weeks following MMA with rCTH; follow up requested Parts of this note may have been copied from one of my previous notes and remain pertinent. The documentation has been reviewed and edited as necessary to support the clinical decision making for today's visit. SIGNATURE: Tayla Reardon PA-C PATIENT NAME: Vonda Brown DATE: December 06, 2023 TIME: 7:22 AM Pager: [phone] [facility] 12-05-2023 Note HNO ID: [id number] Author: TAYLA REARDON PA-C Service: Neurosurgery Author Type: Physician Sales And Production Manager Type: Plan of Care Filed: 12/05/2023 12:07 Note Text: Consult placed for Dr. Jewell for MMA embolization. Will plan for outpatient neurosurgical follow up in approximately 4 weeks following procedure. [facility] 12-05-2023 Note HNO ID: [id number] Author: HERNAN MAXWELL PA-C Service: General Surgery Author Type: Physician Sales And Production Manager Type: Plan of Care Filed: 12/05/2023 09:01 Note Text: Trauma Surgery Plan of Care 12/05/2023 (12/05/2023, 8:49 AM): Patient was seen, evaluated and admitted to the trauma surgery service overnight for management of a large mixed density subdural hematoma that was reportedly the result of multiple recent falls (see HANDP for full details). Checked on patient this morning. She remains alert and oriented x 3 to person, place and idea. She is well aware that she has a large brain bleed and states that her most recent fall was a couple weeks ago. Although she is able to state her full name, , current month and year along with current whereabouts, she was confused on the current president. She notes continued headache and felt somewhat nauseas overnight but did not vomit. She also notes that she has had occasional blurred vision over the past few weeks but denies any numbness, tingling or paresthesias of the extremities. She believes that she falls have been due to generalized weakness. NEURO: AANDOx3. SILT. Equal sensation and strength in all extremities. No facial droop. Clear and concise speech. HEENT: Normocephalic, atraumatic. No open wounds appreciated. PERRLA, EOMI. NECK: No midline pain with palpation, no lacerations/wounds, trachea midline. RESPIRATORY: Lungs CTAB. No harsh breath sounds. Respiratory status stable on RA CARDIOVASCULAR: HR as above. Good perfusion throughout. ABDOMEN: Soft, non-distended. No tenderness or guarding. EXTREMITIES: No gross deformities, clubbing cyanosis or edema. Normal AROM x 2 PSYCH: Normal mood and affect. No acute agitation. A/P: 88 yo femal s/p multiple recent falls with large, mixed density SDH with midline shift - Neurosurgery consulted and following - possible MMA embolization; possible need for SDH evacuation per last note - Repeat CT brain stable 12/05/2023 - Continue neuro checks - No further imaging planned from a trauma surgery standpoint. - NPO/IVF - NS 0.9% @ 75cc/hr - Monitor hyponatremia - Na+ 129 from 131 - received DDAVP for aspirin reversal - no indication for hypertonic fluids at this time - Home medications as ordered - Hold home aspirin and DVT ppx - DNR-KRYSTA, DNI Hernan Maxwell PA-C 12/05/2023 9:01 AM Trauma Service Pager: For questions or concerns Mon-Fri 6a-5p please page [phone]. After 5pm and on Weekends and Holidays, please page [phone] if in ICU or [phone] if on RNF. [facility] documented in this encounter [facility] Summary Purpose Family History No Family History Records FoundNo Family History Records Found Advance Directives No Advanced Directives Records FoundLatest Code Status on File Code Status Date Activated Date Inactivated Comments DNRWARREN STEPHENS 12/04/2023 11:52 PM Question Answer Comments DNR Order Discussed With: Patient Reason for Referral Specialty Diagnoses / Procedures Referred By Ramya t Referred To Contact CT IMAGING Diagnoses SDH (subdural hematoma) (HCC) Procedures CT BRAIN WO IVCON CT HEAD/BRAIN W/O CONTRAST MATERIAL Sanket Avila PA-C [address] [place] [address] [place] [address] Referral ID Status Reason Start Date Expiration Date Visits Requested Visits Authorized [id number] Pending Review Auto-Generat ed Referral 12/07/2023 01/05/2025 1 1 Additional Source Comments INFORMATION SOURCE (unrecogn ized section and content) DATE CREATED AUTHOR AUTHOR'S ELIZABETH ATION 12/11/2023 [facility] Source Comments (unrecognize d section and content) In the event this informatio n is protected by the Federal Confidentiality of Alcohol and Drug Abuse Patient Records regulations: The Federal rules restrict any use of the information to criminally investigate or prosecute any alcohol or drug abuse patient.[facility] Care Teams (unrecognized sec tion and content) FOR RECORDS PERTAINING TO PATIENTS [...] BE BASED ON THE PRIMARY CLINICAL RECORDS. [facility] [employer] [facility]. provides no warranty or guarantee of the accuracy or completeness of information in this document.
[2023-12-16 21:33] LABS: Absolute Lymphocyte Count 1.37 X10^3/uL (0.83-4.51); Absolute Neutrophil Count 8.6 X10^3/uL (2.0-7.7); Basophil# 0.02 X10^3/uL; Basophil% 0.2 % (0-1); Eosinophil# 0.03 X10^3/uL; Eosinophils% 0.3 % (0-5); Hematocrit 35.6 % (37-47); Hemoglobin 11.7 g/dL (12.0-15.0); Lymphocyte # 1.37 X10^3/ul (0.83-4.51); Lymphocyte % 12.5 % (19-41); Mean Corp Hgb Conc 32.9 g/dL (32-36); Mean Corpuscular Hgb 29.5 pg (27.0-32.0); Mean Corpuscular Volume 89.7 fL (81-99); Mean Platelet Vol. 8.9 fl (6.2-12.0); Monocyte# 0.91 X10^3/uL; Monocyte% 8.3 % (0-10); NRBC Flagged by Analyzer 0 % (0-5); Neutrophil # 8.57 X10^3/uL (2.7-7.7); Platelet Count 361 K/mm3 (150-450); RBC Distribution Width CV 13.7 % (11.6-14.6); RBC Distribution Width SD 45.3 fl (35.1-43.9); Red Blood Count 3.97 M/mm3 (4.2-5.4)
--- NOTE | 2023-12-16 21:40 | RAD_ITS ---
STUDY: X-RAY CHEST REASON FOR EXAM: Female, 88 years old. Neuro deficit, acute, stroke suspected TECHNIQUE: Single AP portable view of the chest. COMPARISON: 12/04/2023. FINDINGS: Moderate lung volumes. Mild pulmonary density especially on the left suggestive of mild congestion/edema. More focal pulmonary density in the right apex probably related to tortuous vessels or thyroid but recommend further evaluation with contrast CT of the chest. There is mild cardiac enlargement. Previous CABG. Normal mediastinum and simon. Normal visualized pulmonary arteries. Normal visualized aortic arch and descending thoracic aorta. Normal visualized thoracic spine. Normal visualized ribs, clavicles, and shoulders. There is no demonstrated abnormality of the visualized soft tissue structures of the upper abdomen. RAD/Chest 1 View IMPRESSION: Incomplete expansion of the lungs. Bilateral hazy density suggestive of congestion/edema. Soft tissue density in the right paratracheal region also present previously but needs further evaluation with contrast CT. Electronically Signed: David Agudelo MD at 21:56 EST ,
[2023-12-16 21:57] LABS: Anion Gap 6 (5-15); BUN 12 mg/dL (7-18); BUN/Creat Ratio 17.9 RATIO (10-20); Calcium,Total 8.9 mg/dL (8.5-10.1); Chloride 104 mmol/L (98-107); Creatinine, Serum 0.67 mg/dL (0.55-1.02); EST Glomerular Filtration Rate 88 mL/min (>60); Est Glom Filt Rate - Afr Amer 107 mL/min (>60); Estimated Creatinine Clearance 43.85 ml/min; Glucose 102 mg/dL (74-106); Potassium 3.6 mmol/L (3.5-5.1); Sodium Level 135 mmol/L (136-145); Troponin-I HS 14 pg/mL (3.0-54.0)
[2023-12-16 21:59] LABS: International Normalized Ratio 1.1; Partial Thromboplast Time 31.6 Seconds (24.1-36.2)
[2023-12-17] VITALS (8 sets, daily range): BP systolic 107–151; BP diastolic 61–96; PULSE 55–68; RESP 12–21; O2SAT 91–97
--- NOTE | 2023-12-17 01:11 | ED.RN ---
ACCEPTED AT [facility] [address] BED 2. N2N [id number] [place]QU[place] ETA IS 315AM
[2023-12-17] MEDS: Acetaminophen 500 MG Tablet 1000 MG PO (01:44)
== END 2023-12-17 04:10 | disposition short-term general hospital (02) ==
LOC: ED 20:51
PROVIDERS: Emergency Provider Student in an Organized Health Care Education/Training Program; PCP Family Medicine Geriatric Medicine; Visit Provider Student in an Organized Health Care Education/Training Program
DX: G45.9 Transient cerebral ischemic attack, unspecified (principal); I25.10 Atherosclerotic heart disease of native coronary artery without angina pectoris; I10 Essential (primary) hypertension; E78.5 Hyperlipidemia, unspecified; Z95.1 Presence of aortocoronary bypass graft; Z95.5 Presence of coronary angioplasty implant and graft; Z86.16 Personal history of COVID-19; Z79.899 Other long term (current) drug therapy; Z79.51 Long term (current) use of inhaled steroids
CPT/HCPCS: 70496; 70498; 71045; 80048; 84484; 85025; 85610; 85730; 93005; 99285; Q9967; A4216

== ENCOUNTER → 2023-12-20 | Outpatient (CLI) | payer MEDICARE, SELFPAY ==
[2021-04-12 07:28] VITALS: BMI 27.2
[2023-12-20 17:15] LABS: Color, Urine Yellow (Yellow); Glucose, Dipstick Normal (Normal); Ketone-Dipstick Negative (Negative); Leukocyte Esterase-Dipstick Negative /ul (Negative); Nitrite-Dipstick Negative (Negative); Occult Blood-Urine 10 /ul (Negative); Protein-Dipstick Negative (Negative); Urine Bilirubin Dipstick Negative (Negative); Urine Clarity Clear (Clear); Urine Urobilinogen Normal (Normal)
--- OUTSIDE RECORDS SUMMARY | 2023-12-20 19:39 | XMS RPT_ITS | CCD ---
Author Name Unknown Address [address] [place] [address] Organization [facility] Care Team Providers Care Spacer Type Bar And Segment Name Role Phone Ela Barriga RN Unavailable Unavailable PRISCILLA Gunter, Heather Reynolds Unavailable [phone] STUART RONDON Unavailable Unavail able PRISCILLA Gunter, Heather Reynolds Unavailable [phone] Shabbir Mckee Chi Primary Care Provider MITCH ESPINOSA Consulting Unavailabl e MALLAT, ALI Admitting Unavailable FAST, DERRICK A Primary Care Unavailable ERNESTINA MATUTE Attending Unavailabl e NIA, SHABBIR CHI Primary Care Unavailable MOHINDER LAZO Consulting Unavailable LASHELL MESA Attending Unavaila ble LASHELL MESA Admitting Unavaila ble Allergies Allergy Classification Reported Allergen(s) Allergy Type Date of Onset Reaction(s) Facility (7 sources) lisinopril; Translations: [LISINOPRIL] drug allergy 5 Swelling [facility] Work Phone: (4 sources) Sulfonamides (Antibiotic) drug allergy 2 [facility] Work Phone: (3 sources) Sulfonamides (Antibiotic); Translations: [SULFA (SULFONAMIDE ANTIBIOTICS)] Propensity to adverse reactions to drug (disorder) 6 Hives [facility] Repository Medications Completed/Discontinued Medications Medication Drug Class(es) Dates Sig (Normalized) Sig (Original) [id number] 200 actuat albuterol 0.09 mg/actuat metered dose [...] disease (12 sources) Atherosclerotic heart disease of [place] coronary artery without angina pectoris; Translations: [Coronary [...] not elsewhere classified] Onset: 12-06-2023 12-06-2023 Episodic Residual codes; unclassified (1 source) Altered mental status, unspecified; Translations: [Change in mental state] Onset: 12-17-2023 Episodic Unclassified (4 sources) Retinal defects without [...] Date Time Vital Sign Value Performing Clinician Faci lity 05-29-2017 12:44-0400 BMI (Body Mass Index) 26.06 kg/m2 [facility] Work Phone: 05-29-2017 12:44-0400 BP Diastolic 80 mm[Hg] [facility] Work Phone: 05-29-2017 12:44-0400 BP Systolic 140 mm[Hg] [facility] Work Phone: 05-29-2017 12:44-0400 Height 157.48 cm Heather Gunter PA-C [facility] Work Phone: 05-29-2017 12:44-0400 Pulse (Heart Rate) 74 /min Heather Gunter PA-C [facility] Work Phone: 05-29-2017 12:44-0400 Respiratory Rate 16 /min Heather Gunter PA-C [facility] Work Phone: 05-29-2017 12:44-0400 Weight 64.64 kg Heather Gunter PA-C [facility] Work Phone: 11-24-2016 14:56-0500 BMI (Body Mass Index) 26.79 kg/m2 [facility] Work Phone: 11-24-2016 14:56-0500 BP Diastolic 64 mm[Hg] Heather Gunter PA-C [facility] Work Phone: 11-24-2016 14:56-0500 BP Systolic 120 mm[Hg] Heather Gunter PA-C [facility] Work Phone: 11-24-2016 14:56-0500 BSA (Body Surface Area) 1.68 m2 Heather Gunter PA-C [facility] Work Phone: 11-24-2016 14:56-0500 Pulse (Heart Rate) 76 /min Heather Gunter PA-C [facility] Work Phone: 11-24-2016 14:56-0500 Respiratory Rate 20 /min Heather Gunter PA-C [facility] Work Phone: 11-24-2016 14:56-0500 Weight 66.45 kg PRISCILLA [facility] Work Phone: 12-26-2014 16:03-0500 Heart rate 74 /min Heather Gunter PA-C [facility] Work Phone: 12-26-2014 15:06-0500 Height 157.48 cm PRISCILLA [facility] Work Phone: 01-23-2012 10:59-0400 Body Temperature 98.2 [degF] Heather Gunter PA-C [facility] Work Phone: Encounters Encounter Date Encounter Type Care Provider Facility Start: 12-17-2023 End: 12-17-2023 ambulatory SHABBIR CHI NIA Facility:[facility] Start: 12-07-2023 Orders Only Sanket arshad PA-C Work Phone: [place] PROVIDER ADULT Procedures Date Procedure Procedure Detail Performing Clinician Start: 05-29-2017 End: 05-29-2017 *BMP Heather Gunter PA-C Work Phone: Start: 05-29-2017 End: 05-29-2017 FURNITURE ARRANGER Heather Gunter PA-C Work Phone: Start: 05-29-2017 [...] months Gail Grimm Start: 11-17-2015 End: 11-17-2015 JUAN PABLO [...] Ivan Rowland MD Start: 12-26-2014 End: 12-26-2014 FURNITURE ARRANGER Ivan Rowland MD Start: 12-26-2014 End: 12-27-2014 [...] DTaP,Tdap,Td Vaccine (3 - Td or Tdap) [facility] Start: 12-07-2026 Diabetes Screening Diabetes Screening [facility] Start: 11-06-2023 Advance Directive Discussion Advance Directive Discussion [facility] Start: 11-06-2023 Depression Assessment Depression Assessment [facility] Start: 11-28-2017 End: 11-28-2017 Appointment Appointment [facility] Work Phone: Start: 05-29-2017 End: 05-29-2017 Appointment Appointment [facility] Work Phone: Start: 05-29-2017 End: 05-29-2017 *BMP *BMP [facility] Work Phone: Start: 05-29-2017 End: 05-29-2017 FURNITURE ARRANGER FURNITURE ARRANGER [facility] Work Phone: Start: 05-29-2017 End: 05-29-2017 Follow Up Appt 6 months Follow Up Appt 6 months [facility] Work Phone: Start: 05-29-2017 End: 05-29-2017 Magnesium *Magnesium [facility] Work Phone: Start: 05-29-2017 End: 05-29-2017 Nuclear stress test -exercise Nuclear stress test -exercise [facility] Work Phone: Start: 11-24-2016 End: 11-24-2016 Follow Up Appt 6 months Follow Up Appt 6 months [facility] Work Phone: Start: 11-24-2016 End: 11-24-2016 MMM MMM [facility] Work Phone: Start: 06-21-2016 End: 06-21-2016 Follow Up BP Check Follow Up BP Check [facility] Work Phone: Start: 05-19-2016 End: 05-19-2016 FURNITURE ARRANGER FURNITURE ARRANGER [facility] Work Phone: Start: 05-19-2016 End: 05-19-2016 Follow Up Appt 6 months Follow Up Appt 6 months [facility] Work Phone: Start: 05-19-2016 End: 05-19-2016 Follow Up BP Check Follow Up BP Check [facility] Work Phone: Start: 11-17-2015 End: 11-17-2015 Follow Up Appt 6 months Follow Up Appt 6 months [facility] Work Phone: Start: 11-17-2015 End: 11-17-2015 MMM MMM [facility] Work Phone: Start: 05-12-2015 End: 05-12-2015 FURNITURE ARRANGER FURNITURE ARRANGER [facility] Work Phone: Start: 05-12-2015 End: 05-12-2015 Follow Up Appt 6 months Follow Up Appt 6 months [facility] Work Phone: Start: 02-06-2015 End: 02-06-2015 Follow Up Appt 3 months Follow Up Appt 3 months [facility] Work Phone: Start: 02-06-2015 End: 02-06-2015 MMM MMM [facility] Work Phone: Start: 12-26-2014 End: 12-26-2014 FURNITURE ARRANGER FURNITURE ARRANGER [facility] Work Phone: Start: 12-26-2014 End: 12-26-2014 Echocardiography Echocardiogram (complete) [facility] Work Phone: Start: 12-26-2014 End: 12-26-2014 Electrocardiogram, complete EKG (In office) [facility] Work Phone: Start: 12-26-2014 End: 12-26-2014 Follow Up Appt 6 weeks Follow Up Appt 6 weeks [facility] Work Phone: Start: 12-26-2014 End: 12-26-2014 Nuclear stress test -Lexiscan Nuclear stress test -Lexiscan [facility] Work Phone: Start: 2000 Pneumococcal Vaccine: 65+ (1 of 1 - PCV) Pneumococcal Vaccine: 65+ (1 of 1 - PCV) [facility] Start: 1995 RSV Vaccine (1 - 1-dose 60+ series) RSV Vaccine (1 - 1-dose 60+ series) [facility] Start: 1985 Shingrix Vaccine (1 of 2) Shingrix Vaccine (1 of 2) [facility] End: 01-05-[address]25 CT BRAIN WO IVCON CT BRAIN WO IVCON Radiology Routine SDH (subdural hematoma) (HCC) 1 Occurrences starting 12/07/2023 until 01/05/2025 [facility] Work Phone: Payers Date Payer Category Payer Medicare HUMANA MEDICARE HUMANA MEDICARE PPO [id number] 2019-Present [phone] [address] [address] [place] [address] PPO 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) [facility] Start: 12-05-2023 End: 12-06-2023 History of Social function [facility] Work Phone: Start: 12-05-2023 End: 12-06-2023 [facility] Utilities [facility] Work Phone: Has the [employer], or water [employer] threatened to shut off services in your home in past 12Mo No [facility] Work Phone: How hard is it for y ou to pay for the very basics like food, housing, medical care, and heating Not hard at all [facility] Work Phone: (I/We) worried wheyobany er (my/our) food would run out before (I/we) got money to buy more. Never true [facility] Work Phone: Start: 1935 Sex Assigned At Not on file C [facility] Medical Equipment Procedure Code Equipment Code Equipment Origin al Text Equipment Identifier Dates Particles Trufil l Nbca Embolization Kit Liquid System 1gm - [id number] Start: 12-06-2023 Device Angio-Sea l Vip 6fr .035in Collagen 70cm Closure Valuelink Guidewire - [id number] Start: 12-06-2023 Clinical Notes 12-05-2023 to 12-17-2023 Note Date & Type Note Facility 12-17-2023 Note HNO ID: [id number] Author: JOAN NUGENT RN Service: Nursing Author Type: Registered Nurse Type: Nursing Progress Note Filed: 12/17/2023 06:08 Note Text: Other: Text paged sound admitting for orders x1 [facility] 12-08-2023 Note HNO ID: [id number] Author: ZENY LAND RN Service: Care Management Author Type: Registered Nurse Type: Care Mgt Progress Note Filed: 12/08/2023 11:14 Note Text: CARE MANAGEMENT DISCHARGE NOTE SERVICE DATE: December 08, 2023 SERVICE TIME: 11:13 AM Admission Date: 12/04/2023 LOS: 3 days Discharge Arrangement Discharge Arrangement: Home with Home Health Services Arranged Medical Services: Skilled Home Health Care Type: [facility], Physical Therapy, Occupational Therapy Provider Name: Dr. Mckee Caregiver Assessment Caregiver is ready, willing and able to meet the patient's needs as recommended by the inter-professional team: Yes Name of Caregiver: Essence Transportation Arrangements Transportation Arrangements: Car Destination: home Handoff Communication: Handoff to: Primary Care Physician Primary Care Physician Name/Phone: Dr. Mckee [phone] Additional Information: The patient will dc to home today with family to transport. [facility] agency will reach out to patient to resume [facility] services for PT/OT/SN. Her family will drive her home today. Discharge Information Row Name ED to Hosp-Admission (Current) from 12/04/[address] [facility] Home Health [facility] -- The agency will contact you to arrange the next home care visit. SIGNATURE: Zeny Land RN PATIENT NAME: Vonda Brown DATE: December 08, 2023 TIME: 11:13 AM CONTACT #: [phone] [facility] 12-08-2023 Note HNO ID: [id number] Author: MAX SYED DO Service: General Surgery [...] clinical indicators: x Hypokalemia Other, please specify [facility] 12-07-2023 Note HNO ID: [id number] Author: SAAD WHITE, RN Service: ? Author Type: Registered Nurse Type: Nursing Progress Note Filed: 12/07/2023 20:40 Note Text: Other: Transfer to [facility] via bed. Pt stable AND satisfactory condition. [facility] 12-07-2023 Note HNO ID: [id number] Author: SAAD WHITE RN Service: ? Author Type: Registered Nurse Type: Nursing Progress Note Filed: 12/07/2023 18:55 Note Text: Other: Report called to [facility]0Stefani Nuñez RN. Room not clean. [facility] 12-07-2023 Note HNO ID: [id number] Author: SAAD WHITE RN Service: ? Author Type: Registered Nurse Type: Nursing Progress Note Filed: 12/07/2023 11:03 Note Text: Other: Break report from [facility] to Gail White RN [facility] 12-07-2023 Note HNO ID: [id number] Author: SANKET AVILA PA-C Service: Neurosurgery Author Type: Physician Adjuster Arbitrator Type: Progress Notes Filed: 12/07/2023 11:14 Note [...] 12/06/23699 - 12/07/2365812/07/23699 - 12/08/23 0659 Shift 2190-9552 8172-4140 6112-4117 24 Hour Total 2889-9088 2445-6042 4122-5497 24 Hour Total INTAKE PO 240 240 480 PO 240 240 480 IV 1000 758 021 9685 OR Crystalloid intake (mL) 600 600 Volume (mL) (NaCl 0.9% iv infusion) 427 726 7382 Volume (mL) (lactated ringers iv infusion) 400 400 Other 110 110 OR 110 110 Shift Total 1110 553 448 0392 OUTPUT Urine 500 322 974 5646 Output ( Indwelling Urinary Catheter 12/06/23 1215 Stanley) 500 354 794 3902 Blood 10 10 Estimated Blood loss 10 10 Shift Total 510 653 640 1687 Weight (kg) 64.6 64.6 64.6 64.6 64.6 [...] GENERAL: Awake and alert; NAD; cooperative; pleasant; [place] NEURO: Orientedx3; speech clear and fluent; PLUMMER [...] prn - ok for transfer back to [facility] - PT/OT - f/u 4 wks [...] December 07, 2023 TIME: 10:35 AM Pager: [phone] [facility] 12-07-2023 Note HNO ID: [id number] Author: ERNESTINA MATUTE MD Service: General Surgery Author Type: Physician Type: Progress Notes Filed: 12/07/2023 10:14 Note Text: Trauma Surgery Progress Note SERVICE DATE: 12/07/2023 Trauma Service Pager: For questions or concerns Mon-Fri 6a-5p please page [phone]. After 5pm and on Weekends and Holidays, please page [phone] if in ICU or [phone] if on RNF. SUBJECTIVE: Patient is s/p MMA embolization. Remains [...] Therapy: Room Air IANDO: Date 12/06/23699 - 12/07/23 0659 12/07/23 07 - 12/08/23 0659 Shift 8351-1961 1404-8932 5781-8724 24 Hour Total 6902-6976 5005-5995 7398-2255 24 Hour Total INTAKE PO 240 240 480 PO 240 240 480 IV 1000 257 486 9217 OR Crystalloid intake (mL) 600 600 Volume (mL) (NaCl 0.9% iv infusion) 471 769 6606 Volume (mL) (lactated ringers iv infusion) 400 400 Other 110 110 OR 110 110 Shift Total 1110 027 040 2594 OUTPUT Urine 500 675 916 7949 Output ( Indwelling Urinary Catheter 12/06/23 1215 Stanley) 500 320 448 6507 Blood 10 10 Estimated Blood loss 10 10 Shift Total 510 499 873 2596 Weight (kg) 64.6 64.6 64.6 64.6 64.6 [...] Labs 12/07/23 0525 12/06/23 0028 12/05/23 0440 12/04/233 NA 126* 126* < > 131* K [...] 100-160 systolic PRN hydralazine/labetalol Hold chemo prophylaxis PT/OT/ANALYSIS CONSULTANT - pending Follow-up in 4 weeks with NSGY with repeat imaging Hyponatremia Na 131 -> 129 -> 126 > 126 Received DDAVP for ASA reversal in ED (12/04) Salt tabs 1g TID On NS IVF Trend daily BMP Geriatrics consulted, appreciate recommendations Continue home medications as ordered Current diet order: DIET REGULAR Pain regimen: Sche (more content not included)... [facility] 12-06-2023 Note HNO ID: [id number] Author: CHRISTA TROTTER, RN Service: Nursing Author Type: Registered Nurse Type: Nursing Progress Note Filed: 12/06/2023 21:09 Note Text: Halie Lee aware of EKG QT results, ok to give IV zofran [facility] 12-06-2023 Note HNO ID: [id number] Author: CHRISTA TROTTER RN Service: Nursing Author Type: Registered Nurse Type: Nursing Progress Note Filed: 12/06/2023 21:07 Note Text: Spoke with Halie Singleton KNUCKLE BENDER, ok for patient to take po meds with sips of water [facility] 12-06-2023 Note HNO ID: [id number] Author: JIMBO BRITO APRN.CRNA Service: Anesthesiology Author Type: Nurse Credit Risk Management Director Type: Anesthesia Procedure Notes Filed: 12/06/2023 12:28 Note Text: ANESTHESIOLOGY PROCEDURE NOTE Airway General Information Procedure Start Time/Medication Administration: 12/06/2023 12:09 PM Procedure End Time: 12/06/2023 12:11 PM Patient location during procedure: OR Timeout Performed Pre-procedure: timeout performed Consent Obtained: Yes Patient identity confirmed: arm band Staffing STATION INSPECTOR: Jimbo Brito APRN.STATION INSPECTOR Performed by: STATION INSPECTOR Indications and Patient Condition Indications for airway [...] 1 Airway not difficult SIGNATURE: Jimbo Brito APRN.STATION INSPECTOR PATIENT NAME: Vonda Brown DATE: December 06, 2023 TIME: 12:25 PM CSN: [id number] [facility] 12-06-2023 Note HNO ID: [id number] Author: SONAM TUTTLE RN Service: Care Management Author Type: Registered Nurse Type: Care Mgt Initial Assessment Filed: 12/06/2023 13:05 Note Text: CARE MANAGEMENT: ASSESSMENT AND DISCHARGE PLAN SERVICE DATE: December 06, 2023 SERVICE TIME: 12:17 PM PCP: Shabbir Mckee MD (Confirmed with patient) Primary Contact: Extended Emergency Contact Information Primary Emergency Contact: ESSENCE SKY Mobile Relation: Grandchild Secondary Emergency Contact: Gonsalo Brown Sr Mobile Relation: Spouse Admission Status: Inpatient Insurance Provider: HUMANA MEDICARE PPO Discharge Planning requested by: Per Department Practice Potential Transition Plans To Be Determined Advance Directives Current Advance Directive: Health Care Power of Fabrication Welder;Living Will In Chart: No Encouraged patient's family [...] l Prep;Going to the bathroom;Medication Management;Transportation to [facility]/community Current Services/Equipment Current Post-Acute Service(s): Skilled Home Care, DME Current DME Type: Walker, Cane, Shower seat Discharge Planning Patient Goal(s): General wellness, Increase strength [place] Explained: [place] Given: No Reason Not Given: No placements necessary at this time. Will follow. Are you interested in bedside delivery of your medications? Yes Discharge Planning Participant(s): Patient;Family Caregiver Assessment: Caregiver is ready, willing and able to meet the patient's needs as recommended by the inter-professional team: Yes Name of Caregiver: eladio Mcgee Transport at Discharge: Transportation Arrangements: To Be [...] walker for ambulation. Patient is active with [facility] for home therapy services. PT/OT evaluation pending. Will follow clinical course for transitional/discharge planning needs. SIGNATURE: Sonam Tuttle RN PATIENT NAME: Vonda Brown DATE: December 06, 2023 TIME: 12:17 PM CONTACT #: [id number] [facility] 12-06-2023 Note HNO ID: [id number] Author: MARKUS ORTIZ MD Service: Neuroendovascular Intervention Author Type: Physician Type: Progress Notes Filed: 12/06/2023 11:51 Note Text: Update: Discussed with the family and the patient that the patient will need to have her DNA - CCA reversed to full code. Patient and family in agreement. Markus Ortiz MD. Neuro Interventional Surgery December 06, 2023 [facility] 12-06-2023 Note HNO ID: [id number] Author: MARKUS ORTIZ MD Service: Neuroendovascular Intervention [...] MD. Neuro Interventional Surgery December 06, 2023 [facility] 12-06-2023 Note HNO ID: [id number] Author: FELECIA STEVENS APRN.COURT CLERK Service: General Surgery Author Type: Nurse Practitioner Type: Progress Notes Filed: 12/06/2023 08:57 Note Text: Trauma Surgery Progress Note SERVICE DATE: 12/06/2023 Trauma Service Pager: For questions or concerns Mon-Fri 6a-5p please page [phone]. After 5pm and on Weekends and Holidays, please page [phone] if in ICU or [phone] if on RNF. SUBJECTIVE: No acute overnight [...] O2 Therapy: Room Air IANDO: Date 12/05/23 0700 - 12/06/23 0659 12/06/23 0700 - 12/07/23 0659 Shift 3398-9851 3866-7765 2459-8177 24 Hour Total 3414-2811 2120-3670 8510-9325 24 Hour Total INTAKE IV 300 300 [...] checks every 4 hours Hold chemo prophylaxis PT/OT/ANALYSIS CONSULTANT Follow-up in 4 weeks with NSGY with repeat imaging Hyponatremia Na 131 -> 129 -> 126 Received DDAVP for ASA reversal in ED (12/04) Start salt tablets Trend daily BMP Geriatrics consulted, appreciate recommendations Continue home medications as ordered Current diet order: DIET NPO Pain regimen: Scheduled Tylenol, PRN Oxycodone Bowel regimen: Senna-S Labs: Daily BMP, CBC PPX: DVT: SCDs, mobilize Ulcer: Home Pantoprazole Vit D level if > 65 yo: Pending Consulted Services: NSGY NIL Geriatrics PT/OT ANALYSIS CONSULTANT Dispo Planning: PT/OT recommendations pending. Case management following. Incidentals: Severe right otomastoiditis Follow Up Needs: NSGY in 4 weeks INPATIENT ATTENDING: Dr. Matute High-Risk Geriatric Patient Vulnerabilities: Age >85, Delirium Risk, and Impaired Mobility Diet: DIET NPO Code Status: DNR-CCA, DNI Recommendations: Cognition: No Cognitiv (more content not included)... [facility] 12-06-2023 Note HNO ID: [id number] Author: TAYLA REARDON PA-C Service: Neurosurgery Author Type: Physician Adjuster Arbitrator Type: Progress Notes Filed: 12/06/2023 08:52 Note [...] IANDO: Date 12/05/23 07 - 12/06/23 0659 12/06/23 07 - 12/07/23 0659 Shift 6522-6780 5177-3134 9016-2514 24 Hour Total 0431-2361 3101-9782 9473-9693 24 Hour Total INTAKE IV 300 300 [...] December 06, 2023 TIME: 7:22 AM Pager: [phone] [facility] 12-05-2023 Note HNO ID: [id number] Author: TAYLA REARDON PA-C Service: Neurosurgery Author Type: Physician Adjuster Arbitrator Type: Plan of Care Filed: 12/05/2023 12:07 Note Text: Consult placed for Dr. Espinosa for MMA embolization. Will plan for outpatient neurosurgical follow up in approximately 4 weeks following procedure. [facility] 12-05-2023 Note HNO ID: [id number] Author: HERNAN MAXWELL PA-C Service: General Surgery Author Type: Physician Adjuster Arbitrator Type: Plan of Care Filed: 12/05/2023 09:01 [...] Hold home aspirin and DVT ppx - DNR-CCA, DNI Hernan Maxwell PA-C 12/05/2023 9:01 AM Trauma Service Pager: For questions or concerns Mon-Fri 6a-5p please page [phone]. After 5pm and on Weekends and Holidays, please page [phone] if in ICU or [phone] if on RNF. [facility] documented in this encounter [facility] Summary Purpose Family History No Family History Records FoundNo Family History Records Found Advance Directives No Advanced Directives Records FoundLatest Code Status on File Code Status Date Activated Date Inactivated Comments DNR-CCA, DNI 12/04/2023 11:52 PM Question Answer Comments DNR Order Discussed With: Patient Reason for Referral Specialty Diagnoses / Procedures Referred By Contac t Referred To Contact CT IMAGING Diagnoses SDH (subdural hematoma) (HCC) Procedures CT BRAIN WO IVCON CT HEAD/BRAIN W/O CONTRAST MATERIAL Sanket Avila PA-C [address] [place] [address] [place] [address] Referral ID Status Reason Start Date Expiration Date Visits Requested Visits Authorized [id number] Pending Review Auto-Generat ed Referral 12/07/2023 01/05/2025 1 1 Additional Source Comments INFORMATION SOURCE (unrecogn ized section and content) DATE CREATED AUTHOR AUTHOR'S ORGANIZ ATION 12/18/2023 [facility] Source Comments (unrecognize d section and content) In the event this informatio n is protected by the Federal Confidentiality of Alcohol and Drug Abuse Patient Records regulations: The Federal rules restrict any use of the information to criminally investigate or prosecute any alcohol or drug abuse patient.[facility] Care Teams (unrecognized sec tion [...] BE BASED ON THE PRIMARY CLINICAL RECORDS. [facility] [employer] [facility]. provides no warranty or guarantee of the accuracy or completeness of information in this document.
== END | disposition home or self-care (01) ==
LOC: HHLAB 17:09
PROVIDERS: PCP Family Medicine Geriatric Medicine; Visit Provider Family Medicine Geriatric Medicine
DX: N39.0 Urinary tract infection, site not specified (principal)
CPT/HCPCS: 81002; 87086; 87088

== ENCOUNTER → 2024-01-11 | Outpatient (CLI) | payer MEDICARE, SELFPAY ==
[2021-04-12 07:28] VITALS: BMI 27.2
== END | disposition home or self-care (01) ==
LOC: LABSPEC 13:44
PROVIDERS: PCP Family Medicine Geriatric Medicine; Visit Provider Family Medicine Geriatric Medicine
DX: N39.0 Urinary tract infection, site not specified (principal)
CPT/HCPCS: 87077; 87086; 87088; 87186

== ENCOUNTER → 2024-01-18 | Outpatient (CLI) | payer MEDICARE, SELFPAY ==
[2021-04-12 07:28] VITALS: BMI 27.2
[2024-01-18 15:44] LABS: Absolute Lymphocyte Count 1.09 X10^3/uL (0.83-4.51); Absolute Neutrophil Count 6.5 X10^3/uL (2.0-7.7); Basophil# 0.05 X10^3/uL; Basophil% 0.6 % (0-1); Eosinophil# 0.11 X10^3/uL; Eosinophils% 1.3 % (0-5); Hematocrit 39.8 % (37-47); Hemoglobin 12.8 g/dL (12.0-15.0); Lymphocyte # 1.09 X10^3/ul (0.83-4.51); Lymphocyte % 12.8 % (19-41); Mean Corp Hgb Conc 32.2 g/dL (32-36); Mean Corpuscular Hgb 29.3 pg (27.0-32.0); Mean Corpuscular Volume 91.1 fL (81-99); Mean Platelet Vol. 10.5 fl (6.2-12.0); Monocyte# 0.74 X10^3/uL; Monocyte% 8.7 % (0-10); NRBC Flagged by Analyzer 0 % (0-5); Neutrophil # 6.52 X10^3/uL (2.7-7.7); Neutrophil % 76.4 % (47-70); Platelet Count 302 K/mm3 (150-450); RBC Distribution Width CV 14.8 % (11.6-14.6); RBC Distribution Width SD 50.1 fl (35.1-43.9); Red Blood Count 4.37 M/mm3 (4.2-5.4); White Blood Count 8.5 K/mm3 (4.4-11.0)
[2024-01-18 16:01] LABS: Vitamin D,25 Hydroxy 61.9 ng/mL
[2024-01-18 16:37] LABS: ALB/GLOB Ratio 0.9 RATIO (0.9-2.4); AST(SGOT) 19 U/L (15-37); Alanine Aminotransfer ALT/SGPT 22 U/L (13-56); Albumin, Serum 3.3 g/dL (3.2-5.0); Alkaline Phosphatase 107 U/L (45-117); Anion Gap 8 (5-15); BUN 16 mg/dL (7-18); BUN/Creat Ratio 18.6 RATIO (10-20); Calcium,Total 8.5 mg/dL (8.5-10.1); Chloride 107 mmol/L (98-107); Cholesterol 149 mg/dL (200); Creatinine, Serum 0.86 mg/dL (0.55-1.02); EST Glomerular Filtration Rate 66 mL/min (>60); Est Glom Filt Rate - Afr Amer 80 mL/min (>60); Globulin 3.6 g/dL (2.2-4.2); Glucose 90 mg/dL (74-106); High Density Lipoprotein 59 mg/dL; Potassium 3.7 mmol/L (3.5-5.1); Protein, Total 6.9 g/dL (6.4-8.2); Sodium Level 137 mmol/L (136-145); Triglycerides 145 mg/dL; Very Low Density Lipoprotein 29 mg/dL (5-40)
== END | disposition home or self-care (01) ==
LOC: POLAB3 14:14
PROVIDERS: PCP Family Medicine Geriatric Medicine; Visit Provider Family Medicine Geriatric Medicine
DX: I10 Essential (primary) hypertension (principal); E55.9 Vitamin D deficiency, unspecified; E78.5 Hyperlipidemia, unspecified
CPT/HCPCS: 36415; 80053; 80061; 82306; 84443; 85025

== ENCOUNTER → 2024-03-13 | Outpatient (CLI) | payer MEDICARE, SELFPAY ==
[2021-04-12 07:28] VITALS: BMI 27.2
[2024-03-13 14:53] LABS: Mucous, Urine 0 SEEN /hpf (<or=2+)
--- NOTE | 2024-03-13 15:05 | RAD_ITS ---
INDICATION: Low back pain, unspecified EXAMINATION/TECHNIQUE: X-RAY - XR Pelvis 1 or 2 Views: AP pelvis COMPARISON: Lumbar spine radiograph March 13, 2024. FINDINGS: PELVIC BONES: No displaced fracture, destructive or sclerotic lesions. Note that overlapping bowel shadows may however obscure fine detail. Sacroiliac joints are appropriately aligned with mild degenerative change. No widening of the pubic symphysis. HIPS: Normal bilateral hip alignment. Mild left hip joint space narrowing with minimal osteophyte formation. No visible femoral fracture seen in this frontal view. SOFT TISSUES: No soft tissue swelling or gas. RAD/Pelvis 1 or 2 Views IMPRESSION: No evidence of displaced pelvic or hip fracture. Mild left hip and bilateral sacroiliac joint degenerative change Electronically Signed: Alexandre Wilcox MD at 23:58 EDT ,
--- NOTE | 2024-03-13 15:05 | RAD_ITS ---
STUDY: X-RAY - LUMBAR SPINE REASON FOR EXAM: Female, 88 years old. Low back pain, unspecified TECHNIQUE: AP and lateral view(s) of the lumbar spine were obtained. COMPARISON: None FINDINGS: Normal lumbar lordosis. Mild levoscoliosis or splinting secondary to muscle spasm. There is a normal alignment of the vertebrae. There is wedging of the superior endplate of L2 without well-defined fracture line however this is new finding since prior exam and possibility of recent fracture not excluded. MRI would be helpful for more definitive evaluation Mild multilevel disc space narrowing and endplate spurring.. Diffuse calcification of the aorta without evidence for aneurysm. RAD/L/S Spine Min 4 Views IMPRESSION: Wedging of superior endplate of L2 is new finding since prior exam October 14, 2019 If concern for recent fracture MRI recommended for further evaluation Electronically Signed: Jorge Valderrama MD at 22:00 EDT ,
[2024-03-13 17:13] LABS: Color, Urine Yellow (Yellow); Glucose, Dipstick Normal (Normal); Ketone-Dipstick Negative (Negative); Leukocyte Esterase-Dipstick 500 /ul (Negative); Nitrite-Dipstick Negative (Negative); Occult Blood-Urine 50 /ul (Negative); Protein-Dipstick 30 mg/dl (Negative); Specific Gravity, Urine 1.015 (1.002-1.030); Urine Bilirubin Dipstick Negative (Negative); Urine Clarity Cloudy (Clear); Urine Urobilinogen Normal (Normal)
[2024-03-13 17:21] LABS: Bacteria 2+ /hpf (None Seen); Red Blood Cells-Urine 0-5 SEEN /hpf (0-5); Squamous Epithelial Cells - UA 5-10 SEEN /hpf (5-10); White Blood Cells >100 SEEN /hpf (0-5)
== END | disposition home or self-care (01) ==
PROVIDERS: PCP Family Medicine Geriatric Medicine; Referring Provider Family Medicine Geriatric Medicine; Visit Provider Family Medicine Geriatric Medicine
DX: M54.50 Low back pain, unspecified (principal); N39.0 Urinary tract infection, site not specified
CPT/HCPCS: 72110; 72170; 81001; 87077; 87086; 87088; 87186

== ENCOUNTER → 2024-04-29 | Outpatient (CLI) | payer MEDICARE, SELFPAY ==
[2021-04-12 07:28] VITALS: BMI 27.2
--- NOTE | 2024-04-29 11:09 | MRI_ITS ---
STUDY: MRI LUMBAR SPINE WITHOUT CONTRAST REASON FOR EXAM: Female, 88 years old. COMP FX L2, Pain, radiculopathy, PREVIOUS X-RAYS TECHNIQUE: Standardized fat and water weighted pulse sequences were obtained in the sagittal and axial planes. COMPARISON: Lumbar spine radiographs 03/13/2024. FINDINGS: T10-T11, T11-T12 and T12-L1: (Sagittal only). Normal endplates. Normal disc height, hydration and morphology. No ventral extradural defects. Normal central canal and bilateral lateral recesses. Normal bilateral intervertebral neural foramina. Normal lumbar lordosis. There is no substantial scoliosis. Normal conus medullaris that terminates at the upper L1 vertebral body level. L1-2: Normal L1 inferior endplate. Moderate anterior wedge compression fracture across the upper L2 vertebral body causing increased central disc space height. There is moderate amount of the vertebral marrow edema across the L2 vertebral body with sparing of the pedicles and posterior osseous elements. Normal central canal and bilateral lateral recesses. No significant facet arthropathy. Normal bilateral intervertebral neural foramina. L2-3: Moderate amount vertebral marrow edema of the L2 vertebral body. Normal L3 superior endplate. Normal disc height, hydration and morphology. Minimal ventral extradural defect due to small posterior bulging annulus. Normal facet joints. No central canal and bilateral lateral recesses. Normal bilateral intervertebral neural foramina. L3-4: Normal endplates. Normal disc height, hydration and morphology. Normal facet joints. Prominent dorsal epidural lipomatosis. Mild central canal stenosis with an AP canal diameter of 9 mm. Normal bilateral lateral recesses. Normal bilateral intervertebral neural foramina. L4-5: Prominent Schmorl''s node in the L4 inferior endplate with minimal reactive vertebral marrow edema. Normal L5 superior endplate. Minimal disc space height narrowing. Minimal ventral extradural defect due to posterior bulging annulus. No significant facet arthropathy. Mild central canal stenosis with an AP canal diameter of 10 mm. Normal bilateral lateral recesses. Mild stenosis of the left intervertebral neural foramen. Normal right intervertebral neural foramen. L5-S1: Normal endplates. Normal disc height, hydration and morphology. Mild asymmetric degenerative facet arthropathy. Mild to moderate central canal stenosis with an AP canal diameter of 8 mm surrounded by epidural lipomatosis. Normal bilateral lateral recesses. Normal bilateral intervertebral neural foramina. Normal visualized sacral ala. Normal visualized paraspinous soft tissue structures. MRI/Spine Lumbar (Routine) IMPRESSION: 1. Moderate recent anterior anterior wedge compression fracture across the upper L2 vertebral body with moderate amount vertebral marrow edema. This is also visible on the lumbar spine radiographs of 03/13/2024. This accounts for the 50% loss of the central vertebral body height. If patient has debilitating back pain referrable to this site, this is feasible for kyphoplasty. 2. No MRI evidence of lumbar extruded disc fragment or lumbar disc protrusion. 3. Mild central canal stenosis at L3-L4 disc space level with an AP canal diameter of 9 mm. 4. Mild central canal stenosis at L4-L5 disc space level with an AP canal diameter of 10 mm and mild stenosis of the left intervertebral neural foramen. 5. Mild to moderate central canal stenosis at L5-S1 disc space level with an AP canal diameter of 8 mm surrounded by epidural lipomatosis. Electronically Signed: Sean Wahl MD at 13:48 EDT ,
== END | disposition home or self-care (01) ==
PROVIDERS: PCP Family Medicine Geriatric Medicine; Referring Provider Family Medicine Geriatric Medicine; Visit Provider Family Medicine Geriatric Medicine
DX: S32.020A Wedge compression fracture of second lumbar vertebra, initial encounter for closed fracture (principal); M81.0 Age-related osteoporosis without current pathological fracture
CPT/HCPCS: 72148

== ENCOUNTER → 2024-05-21 | Outpatient (CLI) | payer MEDICARE, SELFPAY ==
[2021-04-12 07:28] VITALS: BMI 27.2
--- NOTE | 2024-05-21 13:30 | BD_ITS ---
STUDY: DUAL ENERGY X-RAY ABSORPTIOMETRY / DXA REASON FOR EXAM: Female, 88 years old. [id number] TECHNIQUE: Bone Mineral Density (BMD) measurements of lumbar spine and bilateral hips were obtained. COMPARISON: Comparison is made with prior study dated December 09, 2014. FINDINGS: Lumbar Spine (L1-L4): g/cm2 (0.809) / T-score (-1.9) / Z-score (0.9) Findings are suggestive of osteopenia with a moderate fracture risk. Left Femur Total: g/cm2 (0.726) / T-score (-1.8) / Z-score (0.6) Left Femoral Neck: g/cm2 (0.642) / T-score (-1.9) / Z-score (0.7) Right Femur Total: g/cm2 (0.803) / T-score (-1.1) / Z-score (1.2) Right Femoral Neck: g/cm2 (0.673) / T-score (-1.6) / Z-score (0.9) The T-Scores on the most recent prior examination were: Lumbar Spine (L1-L4): There has been worsening of bone density since the previous examination. Left Femur Total: which represents a worsening of 8.6%. Right Femur Total: which represents an improvement of 2.4%. BD/Dexa Bone Density Study IMPRESSION: The patient is considered osteopenic as outlined below according to World Brendan Organization (WHO) criteria with a moderate fracture risk. There has been worsening of bone density since the previous examination. Reference Information: The T-score is the number of standard deviations above or below the standard which is normal for young adults at their peak bone mineral density. The World Health Organization (WHO) interprets the T-scores as follows: Above -1 Normal bone density Between -1 and -2.5 Osteopenia Equal to / or below -2.5 Osteoporosis As a practical clinical guideline, osteopenia may be graded as follows: Mild -1 through -1.5 Moderate -1.6 through -2.0 Severe -2.1 through -2.4 The Z-score is the number of standard deviations above or below age-matched controls. A Z-score of less than -1.5 would be considered abnormal. References: 1. NIH Osteoporosis and Related Bone Diseases www osteo.org 2. International Society for Clinical Densitometry www iscd.org 3. National Osteoporosis Foundation www nof.org Electronically Signed: Larry Hardy MD at 15:36 EDT ,
== END | disposition home or self-care (01) ==
LOC: OPBD 13:28
PROVIDERS: PCP Family Medicine Geriatric Medicine; Referring Provider Family Medicine Geriatric Medicine; Visit Provider Family Medicine Geriatric Medicine
DX: M81.0 Age-related osteoporosis without current pathological fracture (principal)
CPT/HCPCS: 77080

== ENCOUNTER → 2024-09-16 | Outpatient (CLI) | payer MEDICARE, SELFPAY ==
[2021-04-12 07:28] VITALS: BMI 27.2
[2024-09-16 14:28] LABS: Absolute Neutrophil Count 5.4 X10^3/uL (2.0-7.7); Basophil# 0.04 X10^3/uL; Basophil% 0.5 % (0-1); Eosinophil# 0.11 X10^3/uL; Eosinophils% 1.4 % (0-5); Hematocrit 43.1 % (37-47); Hemoglobin 13.8 g/dL (12.0-15.0); Lymphocyte % 15.7 % (19-41); Mean Corpuscular Hgb 28.8 pg (27.0-32.0); Mean Platelet Vol. 9.6 fl (6.2-12.0); Monocyte# 0.92 X10^3/uL; NRBC Flagged by Analyzer 0 % (0-5); Neutrophil # 5.37 X10^3/uL (2.7-7.7); Neutrophil % 70.1 % (47-70); Platelet Count 299 K/mm3 (150-450); RBC Distribution Width CV 14.2 % (11.6-14.6); RBC Distribution Width SD 47.1 fl (35.1-43.9); Red Blood Count 4.79 M/mm3 (4.2-5.4); White Blood Count 7.7 K/mm3 (4.4-11.0)
[2024-09-16 15:04] LABS: Vitamin D,25 Hydroxy 37.1 ng/mL
[2024-09-16 15:11] LABS: ALB/GLOB Ratio 0.9 RATIO (0.9-2.4); AST(SGOT) 20 U/L (15-37); Alanine Aminotransfer ALT/SGPT 25 U/L (13-56); Albumin, Serum 3.6 g/dL (3.2-5.0); Alkaline Phosphatase 107 U/L (45-117); Anion Gap 8 (5-15); BUN 15 mg/dL (7-18); BUN/Creat Ratio 18.4 RATIO (10-20); Calcium,Total 8.9 mg/dL (8.5-10.1); Chloride 102 mmol/L (98-107); Cholesterol 163 mg/dL (200); Creatinine, Serum 0.82 mg/dL (0.55-1.02); EST Glomerular Filtration Rate 70 mL/min (>60); Est Glom Filt Rate - Afr Amer 85 mL/min (>60); Globulin 3.9 g/dL (2.2-4.2); Glucose 86 mg/dL (74-106); High Density Lipoprotein 81 mg/dL; Potassium 4.2 mmol/L (3.5-5.1); Protein, Total 7.5 g/dL (6.4-8.2); Sodium Level 137 mmol/L (136-145); Triglycerides 110 mg/dL; Very Low Density Lipoprotein 22 mg/dL (5-40)
== END | disposition home or self-care (01) ==
LOC: POLAB3 01-23 15:51
PROVIDERS: PCP Family Medicine Geriatric Medicine; Visit Provider Family Medicine Geriatric Medicine
DX: E05.90 Thyrotoxicosis, unspecified without thyrotoxic crisis or storm (principal); E78.5 Hyperlipidemia, unspecified; I10 Essential (primary) hypertension; E55.9 Vitamin D deficiency, unspecified
CPT/HCPCS: 36415; 80053; 80061; 82306; 84443; 85025

== ENCOUNTER → 2024-12-09 | Outpatient (CLI) | payer MEDICARE, SELFPAY ==
[2021-04-12 07:28] VITALS: BMI 27.2
--- NOTE | 2024-12-09 17:25 | RAD_ITS ---
EXAM: XR Lumbosacral Spine, 4 or 5 Views CLINICAL INDICATION: TECHNIQUE: Frontal, lateral and bilateral oblique views of the lumbar spine. COMPARISON: No relevant prior studies available. FINDINGS: VERTEBRAE: Multilevel endplate degenerative changes of the lumbar spine. Moderate superior endplate compression deformity of L2 vertebral body, likely chronic. Normal alignment. SACRUM/COCCYX: Unremarkable as visualized. No acute fracture. DISC SPACES: See above. SOFT TISSUES: Unremarkable. VASCULATURE: Scattered calcified atherosclerotic disease of aorta. RAD/L/S Spine Min 4 Views IMPRESSION: Moderate superior endplate compression deformity of L2 vertebral body, likely c hronic. Reading Location: [facility]
== END | disposition home or self-care (01) ==
LOC: RAD 17:20
PROVIDERS: PCP Family Medicine Geriatric Medicine; Visit Provider Family Medicine Geriatric Medicine
DX: S32.020A Wedge compression fracture of second lumbar vertebra, initial encounter for closed fracture (principal); M54.32 Sciatica, left side; M48.061 Spinal stenosis, lumbar region without neurogenic claudication
CPT/HCPCS: 72110

== ENCOUNTER → 2025-01-21 | Outpatient (CLI) | payer MEDICARE, SELFPAY ==
[2021-04-12 07:28] VITALS: BMI 27.2
[2025-01-21 16:43] LABS: Absolute Lymphocyte Count 1.01 X10^3/uL (0.83-4.51); Absolute Neutrophil Count 7.4 X10^3/uL (2.0-7.7); Basophil# 0.04 X10^3/uL; Basophil% 0.4 % (0-1); Eosinophil# 0.16 X10^3/uL; Eosinophils% 1.7 % (0-5); Hematocrit 40.8 % (37-47); Hemoglobin 13.5 g/dL (12.0-15.0); Lymphocyte # 1.01 X10^3/ul (0.83-4.51); Lymphocyte % 10.6 % (19-41); Mean Corp Hgb Conc 33.1 g/dL (32-36); Mean Corpuscular Hgb 29.6 pg (27.0-32.0); Mean Corpuscular Volume 89.5 fL (81-99); Mean Platelet Vol. 9.3 fl (6.2-12.0); Monocyte# 0.86 X10^3/uL; Monocyte% 9.1 % (0-10); NRBC Flagged by Analyzer 0 % (0-5); Neutrophil # 7.38 X10^3/uL (2.7-7.7); Neutrophil % 77.8 % (47-70); Platelet Count 269 K/mm3 (150-450); RBC Distribution Width CV 14.6 % (11.6-14.6); RBC Distribution Width SD 47.6 fl (35.1-43.9); Red Blood Count 4.56 M/mm3 (4.2-5.4); White Blood Count 9.5 K/mm3 (4.4-11.0)
[2025-01-21 18:02] LABS: Cholesterol 163 mg/dL (<=200); High Density Lipoprotein 70 mg/dL; Low Density Lipoprotein Calc. 75 mg/dL; Triglycerides 90 mg/dL; Very Low Density Lipoprotein 18 mg/dL (5-40); Vitamin D,25 Hydroxy 41.8 ng/mL (30-100); cholesterol:hdl ratio screen 2.32
[2025-01-21 19:45] LABS: ALB/GLOB Ratio 1.3 RATIO (0.9-2.4); AST(SGOT) 21 U/L (<=31); Alanine Aminotransfer ALT/SGPT 17 U/L (<=34); Albumin, Serum 3.9 g/dL (3.4-4.8); Alkaline Phosphatase 97 U/L (35-104); Anion Gap 12 (5-15); BUN 16 mg/dL (4-19); BUN/Creat Ratio 17.7 RATIO (10-20); Calcium,Total 8.8 mg/dL (7.6-11.0); Carbon Dioxide 21.5 mmol/L (21.0-32.0); Chloride 97 mmol/L (98-108); Creatinine, Serum 0.89 mg/dL (0.70-1.20); EST Glomerular Filtration Rate 62 (>60); Glucose 96 mg/dL (70-99); Potassium 4.2 mmol/L (3.3-5.1); Sodium Level 131 mmol/L (133-145); Total Bilirubin 0.31 mg/dL (0.00-1.30)
== END | disposition home or self-care (01) ==
LOC: LAB 16:12
PROVIDERS: PCP Family Medicine Geriatric Medicine; Referring Provider Family Medicine Geriatric Medicine; Visit Provider Family Medicine Geriatric Medicine
DX: E78.5 Hyperlipidemia, unspecified (principal); E55.9 Vitamin D deficiency, unspecified; I10 Essential (primary) hypertension
CPT/HCPCS: 36415; 80053; 80061; 82306; 84443; 85025

== ENCOUNTER → 2025-01-29 | Outpatient (CLI) | payer MEDICARE, SELFPAY ==
[2021-04-12 07:28] VITALS: BMI 27.2
[2025-01-29 13:28] LABS: Urine Sodium 48 mmol/L (Not Establ.)
[2025-01-29 13:44] LABS: Anion Gap 11 (5-15); BUN 16 mg/dL (4-19); BUN/Creat Ratio 18.7 RATIO (10-20); Calcium,Total 9.3 mg/dL (7.6-11.0); Carbon Dioxide 23.8 mmol/L (21.0-32.0); Chloride 103 mmol/L (98-108); Creatinine, Serum 0.84 mg/dL (0.70-1.20); EST Glomerular Filtration Rate 66 (>60); Glucose 87 mg/dL (70-99); Potassium 3.8 mmol/L (3.3-5.1); Sodium Level 137 mmol/L (133-145)
[2025-01-29 15:00] LABS: Osmolality, Serum 289 mOsm/KG (280-301); Osmolality, Urine 351 mOsm/KG
== END | disposition home or self-care (01) ==
LOC: POLAB3 12:34
PROVIDERS: PCP Family Medicine Geriatric Medicine; Visit Provider Family Medicine Geriatric Medicine
DX: E87.1 Hypo-osmolality and hyponatremia (principal)
CPT/HCPCS: 36415; 80048; 83930; 83935; 84300

== ENCOUNTER → 2025-05-28 | Outpatient (CLI) | payer MEDICARE, SELFPAY ==
[2021-04-12 07:28] VITALS: BMI 27.2
[2025-05-28 14:21] LABS: Mucous, Urine 0 SEEN /hpf (<or=2+); Red Blood Cells-Urine 0 SEEN /hpf (0-5)
[2025-05-28 14:40] LABS: Color, Urine Yellow (Yellow); Glucose, Dipstick Normal (Normal); Ketone-Dipstick Negative (Negative); Leukocyte Esterase-Dipstick 500 /ul (Negative); Nitrite-Dipstick Negative (Negative); Occult Blood-Urine 25 /ul (Negative); Protein-Dipstick 15 mg/dl (Negative); Specific Gravity, Urine 1.015 (1.002-1.030); Urine Bilirubin Dipstick Negative (Negative)
[2025-05-28 14:48] LABS: Squamous Epithelial Cells - UA 0-5 SEEN /hpf (5-10)
== END | disposition home or self-care (01) ==
LOC: POLAB3 14:19
PROVIDERS: PCP Family Medicine Geriatric Medicine; Visit Provider Family Medicine Geriatric Medicine
DX: N39.0 Urinary tract infection, site not specified (principal); R68.83 Chills (without fever)
CPT/HCPCS: 81001; 87077; 87086; 87088; 87186; 87631